=== PATIENT | female | born 1955 | race Caucasian/White ===

== ENCOUNTER → 2016-08-17 | Outpatient (REF) | payer OTHER ==
[2016-08-17 13:45] LABS: ALBUMIN 3.5 GM/DL (3.2-5.2); ALKALINE PHOSPHATASE 89 U/L (45-117); ALT/SGPT 33 U/L (12-78); ANION GAP 10 MEQ/L (8-16); AST/SGOT 18 U/L (15-37); BILIRUBIN,TOTAL 0.4 MG/DL (0.2-1.0); BLOOD UREA NITROGEN 15 MG/DL (7-18); CALCIUM LEVEL 9.2 MG/DL (8.8-10.2); CARBON DIOXIDE LEVEL 27 MEQ/L (21-32); CHLORIDE LEVEL 105 MEQ/L (98-107); CHOLESTEROL LEVEL 231 MG/DL (<200); CREATININE FOR GFR 0.86 MG/DL (0.55-1.02); GLOMERULAR FILTRATION RATE > 60.0 (>45); GLUCOSE, FASTING 108 MG/DL (80-110); POTASSIUM SERUM 4.5 MEQ/L (3.5-5.1); SODIUM LEVEL 142 MEQ/L (136-145); TRIGLYCERIDES LEVEL 137 MG/DL (<150)
== END ==
LOC: M SFHCPLAZ 08:31
PROVIDERS: ATTEND Family Medicine
DX: E66.9 Obesity, unspecified (principal)

== ENCOUNTER → 2016-08-17 | Outpatient (REF) | payer OTHER | LOC: M SFHCPLAZ 08:20 | PROVIDERS: ATTEND Family Medicine | DX: L98.9 Disorder of the skin and subcutaneous tissue, unspecified (principal) ==

== ENCOUNTER 2016-09-01 17:08 | Emergency (ER) | payer BC, OTHER ==
[~2016-09-01] VITALS: Ht 167.6 cm; Wt 104.3 kg
[2016-09-01 17:09] VITALS: BP 157/60
[2016-09-01] MEDS ORDERED: ESCI10TA2 (17:27)
[2016-09-01] MEDS ORDERED: NICO7DIS (17:27)
== END 2016-09-01 20:46 | disposition left against medical advice (07) ==
LOC: M ED 17:08
DX: Z53.29 Procedure and treatment not carried out because of patient's decision for other reasons (principal)

== ENCOUNTER → 2016-09-02 | Outpatient (REF) | payer OTHER ==
[~2016-09-02] MED LIST: ESCI10TA2; NICO7DIS
[2016-09-02 17:52] LABS: ALBUMIN 3.9 GM/DL (3.2-5.2); ALBUMIN/GLOBULIN RATIO 0.95 (1.00-1.93); ALKALINE PHOSPHATASE 95 U/L (45-117); ALT/SGPT 30 U/L (12-78); ANION GAP 5 MEQ/L (8-16); AST/SGOT 21 U/L (15-37); BILIRUBIN,TOTAL 0.4 MG/DL (0.2-1.0); BLOOD UREA NITROGEN 16 MG/DL (7-18); CALCIUM LEVEL 9.3 MG/DL (8.8-10.2); CARBON DIOXIDE LEVEL 29 MEQ/L (21-32); CHLORIDE LEVEL 101 MEQ/L (98-107); CREATININE FOR GFR 0.74 MG/DL (0.55-1.02); GLOMERULAR FILTRATION RATE > 60.0 (>45); GLUCOSE, FASTING 98 MG/DL (80-110); SODIUM LEVEL 135 MEQ/L (136-145)
[2016-09-02 19:15] LABS: BASO % 0.3 % (0.0-1.0); EOS # 0.2 K/mm3 (0.0-0.50); EOS % 2.2 % (0.0-3.0); LARGE UNSTAINED CELL # 0.2 K/mm3 (0.0-0.4); LARGE UNSTAINED CELL % 2.4 % (0.0-4.0); LYMPH # 2.6 K/mm3 (1.5-4.5); LYMPH % 30.6 % (24.0-44.0); MEAN CORPUSCULAR HEMOGLOBIN 30.5 pg (27.0-33.0); MEAN CORPUSCULAR HGB CONC 33.5 g/dl (32.0-36.5); MEAN CORPUSCULAR VOLUME 91.2 fl (80.0-96.0); MONO # 0.5 K/mm3 (0.0-0.8); MONO % 6.5 % (0.0-5.0); NEUTROPHILS # 4.9 K/mm3 (1.8-7.7); PLATELET COUNT, AUTOMATED 425 k/mm3 (150-450); RED CELL DISTRIBUTION WIDTH 12.6 % (11.5-14.5); WHITE BLOOD COUNT 8.4 K/mm3 (4.0-10.0)
== END ==
LOC: M SFHCPLAZ 14:21
PROVIDERS: ATTEND Family Medicine
DX: R10.11 Right upper quadrant pain (principal)

== ENCOUNTER → 2016-09-03 | Outpatient (CLI) | payer BC, OTHER ==
--- NOTE | 2016-09-03 08:18 | REP ---
RIGHT UPPER QUADRANT SONOGRAPHY: HISTORY: Right upper quadrant pain. No comparison imaging. FINDINGS: There is increased echogenicity diffusely in the liver with decreased insonation properties consistent with diffuse fatty infiltration of the liver. A 1.8 x 1.1 x 1.4 cm hypoechoic lesion is seen in the left lobe of the liver with some enhanced through transmission. This may be a complex cyst but is nonspecific. The liver is not felt to be enlarged. No intrahepatic bile duct dilation is seen. Scanning through the gallbladder shows mild tenderness to scanning. The gallbladder is slightly dilated measuring 9.5 cm in greatest diameter. Common bile duct is mildly dilated as well measuring 0.8 cm in greatest diameter. No stone or polyp is seen in the gallbladder. No pericholecystic fluid is seen. Images through the pancreas show poor visualization of the pancreatic tail but no pancreatic abnormality is seen. There is no evidence of ascites or right renal abnormality. The right kidney measures 12.4 x 5.8 x 5.1 cm. IMPRESSION: 1. Fatty infiltration of the liver. 2. 1.8 cm hypoechoic lesion in the left lobe of the liver most likely a complex cyst. 3. Mildly dilated gallbladder with tenderness to scanning. Mild dilation of the common bile duct. Otherwise unremarkable. Consider CT scanning of the abdomen without and with IV contrast. Signed by Toño Shipley MD 09/03/2016 10:13 A
== END ==
LOC: M RAD 06:53
PROVIDERS: ATTEND Family Medicine
DX: R10.11 Right upper quadrant pain (principal)

== ENCOUNTER → 2016-09-09 | Outpatient (CLI) | payer BC, OTHER ==
[~2016-09-09] MED LIST changes: -ESCI10TA2; +ESCI10TA2 PO; +GASTROGRAFIN SOLUTION 30ML (Q9963) As Ordered ONE; +ISOVUE-370 76% 100ML VIAL (Q9967) As Ordered ONE; +TRAM50TA2 PO
--- NOTE | 2016-09-10 10:22 | REP ---
CT abdomen without and with IV contrast: With oral contrast. History: Hepatic cyst. Right upper quadrant pain. No comparison CT study. Comparison sonography September 03, 2016. CT contrast dose: 100 mL of Isovue 370 is administered intravenously. Findings: There is moderate fatty infiltration of the liver diffusely with areas of fat sparing near the gallbladder as seen on sonography. No evidence of a hepatic cyst is seen. There is a very subtle area of increased density within the left lobe of the liver centrally 1.1 cm in diameter on the postcontrast images compatible with a small incidental hemangioma. This may appear hypoechoic on ultrasound because of the diffuse fatty infiltration of the liver. No other focal liver lesion is seen. No gallbladder abnormality is seen. Spleen is unremarkable. There is a 17 x 18 mm low density nodule in the left adrenal gland. Hounsfield units range to -25. This is consistent with a small benign left adrenal adenoma. No pancreatic abnormality is seen. There is a small descending duodenal diverticulum containing air at the head of the pancreas. No retroperitoneal mass or adenopathy is seen. A normal appendix is seen retrocecal. No abdominal wall defect is seen. Small and large bowel loops are unremarkable in the abdomen. Impression: 1. Moderate degree of diffuse fatty infiltration of the liver. 2. No evidence of hepatic cyst. Small area of subtle hypervascular parenchyma in the left lobe of the liver, 1.1 cm. This may reflect a small atypical benign hemangioma. 3. 1.8 cm benign left adrenal adenoma. No other significant abdominal abnormality. Suggest follow-up right upper quadrant ultrasound in 4 to 6 months. Signed by Toño Shipley MD 09/10/2016 01:13 P
== END ==
LOC: M RAD 15:03
PROVIDERS: ATTEND Family Medicine
DX: K76.89 Other specified diseases of liver (principal); D35.00 Benign neoplasm of unspecified adrenal gland; R10.11 Right upper quadrant pain
CPT/HCPCS: 74170; Q9963; Q9967

== ENCOUNTER → 2016-09-15 | Outpatient (CLI) | payer BC, OTHER ==
[~2016-09-15] MED LIST changes: -GASTROGRAFIN SOLUTION 30ML (Q9963) As Ordered ONE; -ISOVUE-370 76% 100ML VIAL (Q9967) As Ordered ONE
--- NOTE | 2016-09-15 11:46 | REPMRS ---
Patient History The patient states she has not had a clinical breast exam in over a year. Patient is postmenopausal. Family history of unknown cancer in father at age 55, colorectal cancer in paternal grandfather at age 70, unknown cancer in sister at age 40, unknown cancer in maternal grandmother at age 68, unknown cancer in brother at age 53, and unknown cancer in paternal uncle at age 58. Took estrogen for 36 years. Digital Woman Screen Mammo: September 15, 2016 - Exam #: [id number] Bilateral CC and MLO view(s) were taken. Technologist: Lynette Rodríguez, Technologist Prior study comparison: December 18, 2013, digital mammo diagnostic bilateral, performed at [facility]. November 22, 2012, bilateral bilat screen digital mammo, performed at [facility] ([facility]). March 27, 2010, digital bilateral screening mammo, performed at [facility]. FINDINGS: There are scattered fibroglandular densities. There has been no change in the appearance of the mammogram from the prior studies. There is a mild amount of scattered fibroglandular density which is fairly symmetric. There is no interval development of dominant mass, architectural distortion, or clustered microcalcification suggestive of malignancy. ASSESSMENT: BI-RADS/ACR category 1 mammogram. Negative. Recommendation Routine screening mammogram in 1 year (for women over age 40). This mammogram was interpreted with the aid of an FDA-approved computer-aided dectection system. Electronically Signed By: Janusz Shipley MD 09/15/16 [id number]
== END ==
LOC: M WHC 10:03
PROVIDERS: ATTEND Family Medicine
DX: Z12.31 Encounter for screening mammogram for malignant neoplasm of breast (principal); Z78.0 Asymptomatic menopausal state; Z80.8 Family history of malignant neoplasm of other organs or systems

== ENCOUNTER → 2016-09-17 | Outpatient (CLI) | payer BC, OTHER ==
[~2016-09-17] VITALS: Ht 167.6 cm; Wt 102.5 kg
[~2016-09-17] MED LIST changes: +LIDOCAINE 2% INJ 100 MG/5 ML SDV (FOR ANES.) As Ordered ONE; +NS 1,000 ML IV SCH; +PROPOFOL 200 MG/20 ML VIAL As Ordered ONE
--- NOTE | 2016-09-17 09:08 | ROOR ---
Patient Name: Amber Neville Procedure Date: 09/17/2016 8:50 AM Date of : 1955 Age: 61 Room: [facility] Gender: Female Note Status: Finalized Procedure: Upper GI endoscopy Indications: Abdominal pain in the right upper quadrant, Nausea Providers: Mckay EUGENE MD Referring MD: Janey Gamboa MD Requesting Provider: Medicines: Monitored Anesthesia Care Complications: No immediate complications. Procedure: Pre-Anesthesia Assessment: - The heart rate, respiratory rate, oxygen saturations, blood pressure, adequacy of pulmonary ventilation, and response to care were monitored throughout the procedure. The Endoscope was introduced through the mouth, and advanced to the second part of duodenum. The upper GI endoscopy was accomplished without difficulty. The patient tolerated the procedure well. Findings: A single 10 mm mucosal nodule was found at the gastroesophageal junction. Biopsies were taken with a cold forceps for histology. The exam was otherwise without abnormality. The entire examined stomach was normal. The examined duodenum was normal. Impression: - Inflammatory appearing mucosal nodule found in the lower esophagus. Biopsied. - The examination was otherwise normal. - Normal stomach. - Normal examined duodenum. Recommendation: - Continue present medications. - Telephone endoscopist for pathology results in 2 weeks. (depending on pathology report, we may consider repeating the upper scope in 3-6 months) - Use Prilosec (omeprazole) 40 mg PO daily for 3 months. - (the script was sent to your pharmacy on file) Mckay Eugene MD Mckay EUGENE MD 09/17/2016 9:07:41 AM This report has been signed electronically. Number of Addenda: 0 Note Initiated On: 09/17/2016 8:50 AM Estimated Blood Loss: Estimated blood loss: none. Estimated blood loss: none.
--- NOTE | 2016-09-17 09:31 | ROOR ---
Patient Name: Amber Neville Procedure Date: 09/17/2016 8:51 AM Date of : 1955 Age: 61 Room: [facility] Gender: Female Note Status: Finalized Procedure: Colonoscopy Indications: High risk colon cancer surveillance: Personal history of colonic polyps, Surveillance: Personal history of adenomatous polyps on last colonoscopy 3 years ago, High risk colon cancer surveillance: Personal history of adenoma with high grade dysplasia Providers: Mckay EUGENE MD Referring MD: Janey Gamboa MD Requesting Provider: Medicines: Monitored Anesthesia Care Complications: No immediate complications. Procedure: Pre-Anesthesia Assessment: - The heart rate, respiratory rate, oxygen saturations, blood pressure, adequacy of pulmonary ventilation, and response to care were monitored throughout the procedure. The Colonoscope was introduced through the anus and advanced to the cecum, identified by appendiceal orifice and ileocecal valve. The colonoscopy was somewhat difficult due to unsatisfactory bowel prep. Successful completion of the procedure was aided by lavage. The patient tolerated the procedure well. The quality of the bowel preparation was fair. Findings: The perianal and digital rectal examinations were normal. A 5 mm polyp was found in the ascending colon. The polyp was sessile. The polyp was removed with a hot snare. Resection and retrieval were complete. A 5 mm polyp was found in the hepatic flexure. The polyp was semi-sessile. The polyp was removed with a hot snare. Resection and retrieval were complete. A 5 mm polyp was found in the splenic flexure. The polyp was semi-sessile. The polyp was removed with a hot snare. Resection and retrieval were complete. A 4 mm polyp was found in the mid descending colon. The polyp was sessile. The polyp was removed with a hot snare. Resection and retrieval were complete. Multiple medium-mouthed diverticula were found in the sigmoid colon. Internal hemorrhoids were found during retroflexion. The hemorrhoids were medium-sized. Impression: - Preparation of the colon was fair/suboptimal. - One 5 mm polyp in the ascending colon, removed with a hot snare. Resected and retrieved. - One 5 mm polyp at the hepatic flexure, removed with a hot snare. Resected and retrieved. - One 5 mm polyp at the splenic flexure, removed with a hot snare. Resected and retrieved. - One 4 mm polyp in the mid descending colon, removed with a hot snare. Resected and retrieved. - Diverticulosis in the sigmoid colon. - Internal hemorrhoids. Recommendation: - Repeat colonoscopy in 6 months because the bowel preparation was suboptimal. (and history of several High grade dysplasia polyps in 2012) Mckay Eugene MD Mckay EUGENE MD 09/17/2016 9:30:47 AM This report has been signed electronically. Number of Addenda: 0 Note Initiated On: 09/17/2016 8:51 AM Estimated Blood Loss: Estimated blood loss: none.
[2016-09-17 09:45] VITALS: BP 154/69
== END | disposition home or self-care (01) ==
LOC: M OPP 07:42
PROVIDERS: ATTEND Internal Medicine Gastroenterology
DX: Z12.11 Encounter for screening for malignant neoplasm of colon (principal); K63.5 Polyp of colon; D12.3 Benign neoplasm of transverse colon; K57.30 Diverticulosis of large intestine without perforation or abscess without bleeding; K64.8 Other hemorrhoids; R10.11 Right upper quadrant pain; R11.0 Nausea; K22.8 Other specified diseases of esophagus; F33.9 Major depressive disorder, recurrent, unspecified; R06.83 Snoring; F17.200 Nicotine dependence, unspecified, uncomplicated; F17.228 Nicotine dependence, chewing tobacco, with other nicotine-induced disorders; Z79.899 Other long term (current) drug therapy; Z88.0 Allergy status to penicillin; Z88.1 Allergy status to other antibiotic agents

== ENCOUNTER → 2016-09-29 | Outpatient (CLI) | payer BC, OTHER ==
[~2016-09-29] MED LIST changes: -LIDOCAINE 2% INJ 100 MG/5 ML SDV (FOR ANES.) As Ordered ONE; -NS 1,000 ML IV SCH; -PROPOFOL 200 MG/20 ML VIAL As Ordered ONE
--- NOTE | 2016-09-29 11:33 | REP ---
BILIARY SCAN WITH GALLBLADDER EJECTION FRACTION: 09/29/2016. Comparison: CT abdomen 09/09/2016, gallbladder ultrasound 09/03/2016. Clinical history: Right upper quadrant pain and tenderness after fatty meals. Technique. The patient received 6.2 mCi technetium 99m mebrofenin via an IV with sequential 5-minute anterior images obtained over the right upper quadrant. Thereafter 8 ounces of Ensure Enlive was consumed and rescanning performed at 2-minute intervals for 1 hour with region of interest drawn over the gallbladder. The ejection fraction calculated via semiautomated method. There is homogeneous tracer distribution in the liver with a slightly enlarged left hepatic lobe. Activity is first seen in the gallbladder at 15 minutes and the common bile duct at 20 minutes but no activity into the duodenum and small bowel for by 1 hour. After the fatty meal was consumed, activity was seen extending into the small bowel immediately. There was homogeneous appearance of washout from the liver activity and progressive filling of the gallbladder with increased activity. The gallbladder ejection fraction is calculated at 21% for 1 hour. With this technique, the normal range is greater than 35%. Impression: 1. Homogeneous tracer uptake throughout the liver and good washout of activity from the liver, progressive increased activity into the gallbladder. Biliary to bowel transit was somewhat slow with no activity at 1 hour but with a fatty meal activity, did see extension into the small bowel loops immediately. However the gallbladder ejection fraction is low consistent with biliary dyskinesia. Signed by Roger Ochoa MD 09/29/2016 05:05 P
== END ==
LOC: M RAD 07:53
PROVIDERS: ATTEND Physician Assistant Medical
DX: R10.11 Right upper quadrant pain (principal)

== ENCOUNTER → 2016-10-08 | Outpatient (CLI) | payer BC, OTHER ==
[~2016-10-08] MED LIST changes: +HYDR-3713 PO; +OMEP40CA2 PO
--- NOTE | 2016-10-08 15:29 | ECGEPIP ---
Stationary ECG Study [facility] Test Date: 2016-10-08 Pat Name: CHINTAN DYE Department: Room: - Gender: F [employer]: WILDA : 1955 Requested By: QUYEN Middleton Order Number: [id number] Reading MD: Mckay Payne Measurements Intervals [place] Rate: 63 P: -16 CT: 142 QRS: -9 QRSD: 94 T: 59 QT: 414 QTc: 427 Interpretive Statements SINUS RHYTHM, Within normal limits. No prior ECG available for comparison at the time of interpretation. Electronically Signed On 10-08-2016 15:28:43 EDT by Mckay Payne
== END ==
LOC: M EKG 12:24
PROVIDERS: ATTEND Surgery
DX: K82.8 Other specified diseases of gallbladder (principal)

== ENCOUNTER 2016-11-11 21:09 | Emergency (ER) | payer BC, OTHER ==
[~2016-11-11] VITALS: Ht 167.6 cm; Wt 93.9 kg
[2016-11-11] MEDS ORDERED: NAPR500T2 PO (21:18)
[2016-11-11] MEDS ORDERED: TRAM50TA2 PO (21:18)
[2016-11-11] MEDS ORDERED: CYCL5TA PO (21:18)
[2016-11-11] MEDS ORDERED: KETOROLAC 30 MG/ML VIAL (J1885) IV ONE (22:45)
[2016-11-11] MEDS ORDERED: TRIMETHOBENZAMIDE HCL INJ 200 MG/2 ML VIAL (J3250) IM ONE (22:45)
[2016-11-11] MEDS ORDERED: NS 1,000 ML IV ONE (22:45)
[2016-11-11 22:58] LABS: BASO % 0.4 % (0.0-1.0); EOS # 0.3 K/mm3 (0.0-0.50); EOS % 2.4 % (0.0-3.0); LARGE UNSTAINED CELL # 0.2 K/mm3 (0.0-0.4); LARGE UNSTAINED CELL % 1.2 % (0.0-4.0); LYMPH # 2.7 K/mm3 (1.5-4.5); LYMPH % 20.1 % (24.0-44.0); MEAN CORPUSCULAR HEMOGLOBIN 30.3 pg (27.0-33.0); MEAN CORPUSCULAR HGB CONC 33.1 g/dl (32.0-36.5); MEAN CORPUSCULAR VOLUME 91.5 fl (80.0-96.0); MONO # 0.8 K/mm3 (0.0-0.8); MONO % 6.3 % (0.0-5.0); NEUTROPHILS # 8.6 K/mm3 (1.8-7.7); NEUTROPHILS % 69.6 % (36.0-66.0); PLATELET COUNT, AUTOMATED 576 k/mm3 (150-450); RED CELL DISTRIBUTION WIDTH 12.8 % (11.5-14.5); WHITE BLOOD COUNT 12.4 K/mm3 (4.0-10.0)
[2016-11-11] MEDS ORDERED: ISOVUE-370 76% 100ML VIAL (Q9967) As Ordered ONE (23:06)
[2016-11-11] MEDS ORDERED: MORPHINE 4 MG/ML 1ML SYRINGE IV ONE (23:15)
--- NOTE | 2016-11-11 23:40 | REPUSA ---
Clinical history: Pain, swelling. Findings: The common femoral, superficial femoral, popliteal, and other deep venous structures compre ss normally and demonstrate normal color Doppler flow. Normal venous waveforms with augmentation are seen. Several large prominent lymph nodes are seen in the right inguinal region. A lymph node is seen measuring 2.7 x 1.0 x 1.2 cm. A second lymph node measures 4.0 x 0.7 x 1.6 cm. Impression: 1. No evidence of deep vein thrombosis in the right femoral popliteal venous system. 2.. Borderline inguinal lymphadenopathy.
[2016-11-12 00:04] LABS: ANION GAP 9 MEQ/L (8-16); BLOOD UREA NITROGEN 18 MG/DL (7-18); CALCIUM LEVEL 9.3 MG/DL (8.8-10.2); CARBON DIOXIDE LEVEL 24 MEQ/L (21-32); CHLORIDE LEVEL 102 MEQ/L (98-107); CREATININE FOR GFR 0.84 MG/DL (0.55-1.02); GLOMERULAR FILTRATION RATE > 60.0 (>45); GLUCOSE, FASTING 122 MG/DL (80-110); POTASSIUM SERUM 4.1 MEQ/L (3.5-5.1); SODIUM LEVEL 135 MEQ/L (136-145)
--- NOTE | 2016-11-12 01:20 | REPUSA ---
CLINICAL HISTORY: Dyspnea,exclude PE. TECHNIQUE: Multiple incremental axial, coronal and oblique images are obtained from the thoracic inle t to the upper abdomen. Intravenous contrast material was administered as per pulmonary embolism prot ocol. COMMENTS: Pathologic fracture of the posterior arch of the right seventh rib with an associated soft tissue les ion. Pathologic fracture of the left transverse process of T8 vertebral with an associated soft tissue les ion. Pathologic fracture of the T10 vertebral body with associated soft tissue lesion. No secondary retrop ulsion. Moderate diffuse mediastinal and bilateral hilar lymphadenopathy. The largest lymph node measures a 3 .2 cm. 2.5 cm spiculated mass in the left lower lobe suggestive of a neoplastic pathology. Scattered bilateral pulmonary nodules ranging in size between 2 and 5 mm. Scattered bilateral groundglass densities of the lungs. Subsegmental atelectatic changes of the right lung. There is excellent opacification of pulmonary arterial system without evidence for pulmonary embolism . Aorta is of normal caliber without evidence for dissection or aneurysm. There are no pleural effusions. The heart and great vessels are within normal limits. Images of the upper abdomen demonstrate no evidence of adrenal mass. IMPRESSION: No evidence for pulmonary embolism. Diffuse mediastinal and hilar lymphadenopathy. Left lower lobe mass suggestive of a neoplastic pathology. Bilateral pulmonary nodules. Subsegmental atelectatic changes of the right lung. Diffuse metastatic bone disease. Thank you for your kind referral of this patient.
[2016-11-12] MEDS ORDERED: HYDROmorphone HCL 1 MG/ML SYRINGE (J1170) IV ONE ×2 (02:30)
[2016-11-12] MEDS ORDERED: ATIV2TAB PO (02:37)
[2016-11-12] MEDS ORDERED: LORazepam 2 MG TAB PO STA (02:39)
[2016-11-12 03:00] VITALS: BP 138/62
--- NOTE | 2016-11-13 14:26 | ED PDOC ---
Post-Departure Follow-Up faxed to dr kay xavier and rakel. MILADIS Moore November 13, 2016 14:26
== END 2016-11-12 03:04 | disposition home or self-care (01) ==
LOC: M ED 22:46
DX: R91.8 Other nonspecific abnormal finding of lung field (principal); R59.0 Localized enlarged lymph nodes
CPT/HCPCS: 71275; 80048; 85025; 86140; 93971; 96361; 96372; 96374; 96375; 96376; 99282; J1170; J1885; J3250; Q9967

== ENCOUNTER → 2016-11-16 | Outpatient (REF) | payer BC, OTHER ==
[~2016-11-16] MED LIST changes: +ATIV2TAB PO; +CYCL5TA PO; +NAPR500T2 PO
[2016-11-16 13:48] LABS: INR 1.05
== END ==
LOC: M LAB REF 13:03
PROVIDERS: ATTEND Internal Medicine Medical Oncology
DX: C34.90 Malignant neoplasm of unspecified part of unspecified bronchus or lung (principal); C79.51 Secondary malignant neoplasm of bone

== ENCOUNTER → 2016-11-19 | Outpatient (CLI) | payer BC, OTHER ==
--- NOTE | 2016-11-19 14:36 | REP ---
Whole body radionuclide bone scan: History: Bony metastasis. Technique: 20.1 mCi technetium 99m MDP is injected and standard whole body bone scan imaging is acquired. Scintigraphic findings: There is uptake in the urinary bladder and in both kidneys. There is abnormal uptake in the posterior aspect of the right 7th rib with photopenic area in the posterior segment bordered by two areas of increased uptake, one on either side of the photopenic zone. This corresponds to the pathologic fracture in this rib on recent chest CT. There is mixed photopenia and increased uptake in the lower thoracic spine at T10 and T11. Some increased uptake is seen at T9 and T8 in the posterior elements and pedicles. There is a focus of increased uptake in the lateral end of the left 10th rib and possibly in the anterior end of the left 6th rib. These areas are suspicious for metastatic disease. There is a focus of increased uptake in the inferior and medial aspect of the femoral head on the right. Whole body images suggest a lesion in the superior pubic ramus on the right as well. No other abnormal foci are seen. There is mild arthritic uptake in the acromioclavicular joints bilaterally. Impression: Metastatic pattern of skeletal uptake with areas of photopenia and increased uptake seen. This implies an aggressive neoplastic pattern. Signed by Toño Shipley MD 11/19/2016 02:59 P
== END ==
LOC: M RAD 09:48
PROVIDERS: ATTEND Physician Assistant
DX: C79.51 Secondary malignant neoplasm of bone (principal); C80.1 Malignant (primary) neoplasm, unspecified

== ENCOUNTER → 2016-11-20 | Outpatient (CLI) | payer BC, OTHER ==
[~2016-11-20] MED LIST changes: +LIDOCAINE 1% MDV 20ML VIAL As Ordered ONE
--- NOTE | 2016-11-20 16:25 | REP ---
CT GUIDED T 8 LEFT TRANSVERSE PROCESS BIOPSY: The procedure was performed under the direct supervision of Dr. Shipley. The risks and benefits of the procedure were explained to the patient and informed consent was obtained. The T 8 left transverse process lesion was localized using CT guidance. The skin was prepped and draped in a sterile fashion. 1% Lidocaine was used as a local anesthetic. Using CT guidance a 17/18 gauge coaxial needle was inserted and then advanced into the lesion. 2 core biopsy samples were obtained. The needle was removed and a 19/20 gauge coaxial needle biopsy system was inserted and 5 core biopsy samples were obtained. All samples were sent to the lab for analysis. The patient tolerated the procedure well and there were no immediate complications. After the appropriate amount of monitored convalescence the patient was discharged from the department. Reviewed by SERENITY Han 11/20/2016 04:48 PEdited and Signed by Toño Shipley MD 11/23/2016 08:34 A
== END ==
LOC: M RADPRO 10:52
PROVIDERS: ATTEND Internal Medicine Pulmonary Disease
DX: C34.90 Malignant neoplasm of unspecified part of unspecified bronchus or lung (principal); Z88.0 Allergy status to penicillin; Z88.8 Allergy status to other drugs, medicaments and biological substances; Z87.891 Personal history of nicotine dependence; Z79.899 Other long term (current) drug therapy

== ENCOUNTER → 2016-12-01 | Outpatient (CLI) | payer BC, OTHER ==
[~2016-12-01] MED LIST changes: -LIDOCAINE 1% MDV 20ML VIAL As Ordered ONE
--- NOTE | 2016-12-02 19:32 | REP ---
Whole body PET CT scan: Comparisons are the chest CT dated 09/09/[address] of the abdomen, pelvis not included dated 09/09/2016. Whole body PET CT scan is performed from skull base to the upper thighs. Neck and supraclavicular areas: There are multiple hypermetabolic foci at the thoracic inlet, particularly on the left compatible with adenopathy. S U V maximally measures 8.2 in a node at the thoracic inlet on the left. Chest: There are multiple hypermetabolic foci in the anterior mediastinum and paratracheal mediastinum compatible with mediastinal lymphadenopathy. The S U V maximally measures 5.9 in an anterior mediastinal node. There is bilateral hilar multifocal uptake compatible with bilateral hilar adenopathy, the SUV maximally measuring 12.6 on the right and 7.0 on the left. There is uptake in a subcarinal node with an S U V of 9.8. There is hypermetabolic uptake in the patient's known left lung mass with the standard uptake value maximally measuring 7.0. At the periphery of this mass superoposteriorly there is a photopenic zone compatible with necrosis. There is intense uptake in the posterior arch of the right sixth rib and at the costoveterbral junction of the left seventh rib and in the posterior elements of the T7 vertebra compatible with skeletal metastases. Additionally is a focus of uptake in the right pedicle of the T8 vertebra. I suspect there is an expansile lesion in the T9 vertebral body with hypermetabolic uptake at its periphery. There is focal hypermetabolic uptake in the lateral aspect of the left tenth rib. Abdomen, pelvis and upper thighs: There is a hypermetabolic focus posteriorly in the right lobe of the liver, standard uptake value measuring 7.6. There is hypermetabolic uptake in mesenteric nodes in the latonya hepatis and posterior to the pancreas. And there are hypermetabolic foci in the spleen. There are enlarged aortocaval nodes with hypermetabolic uptake. There is an hypermetabolic focus posteriorly in the right kidney with the standard uptake value measuring 19.3. In the pelvis, there is a hypermetabolic focus in the sacrum on the right with an S U V of 17.5 and a hypermetabolic focus in the right hip. There is hypermetabolic uptake in an enlarged right femoral noted. The bladder is flattened and has an irregular shape. There appears to be a diverticulum posteriorly in the midline and two diverticula postero laterally one on the right and one the left. Impression: Multiple hypermetabolic metastatic lymph node, skeletal and solid organ foci. The study is performed with 11 mCi of F 18 FDG. Signed by Moy Acharya MD 12/02/2016 07:24 P
== END ==
LOC: M PLARAD 13:26
PROVIDERS: ATTEND Internal Medicine Pulmonary Disease
DX: C34.32 Malignant neoplasm of lower lobe, left bronchus or lung (principal)
CPT/HCPCS: 78815; A9552

== ENCOUNTER → 2016-12-22 | Outpatient (CLI) | payer BC, OTHER ==
--- NOTE | 2016-12-29 10:36 | RADONC ---
RADIATION ONCOLOGY CONSULTATION NOTE DATE: 12/22/2016 CHART NUMBER: [id number] DIAGNOSIS: Left lung cancer. STAGE: IV, [id number]. ECOG PERFORMANCE STATUS: 2. CONSULTATION NOTE: Ms. Neville is a pleasant 61-year-old white female with the diagnosis of a widely metastatic end-stage adenocarcinoma of the lung who is presenting to us today on an urgent basis complaining of severe right hip and low back pain as well as pain in other sites. She is presenting for palliative radiation therapy for bone metastasis. HISTORY OF PRESENT ILLNESS: The patient has been a long-time smoker and has a 40 pack-year smoking history. She was in the usual state of health until July of this year when she began developing some abdominal pain located in the right upper quadrant. At first it was thought she had a cholecystitis and she underwent a cholecystectomy in October of 2016. She continued to have pain as well as some increased shortness of breath. The patient presented at the emergency department and a CT was done on 11/11/2016 of the chest which showed diffuse mediastinal and hilar lymphadenopathy as well as a left lower lobe mass suggestive of a neoplastic pathology. There were multiple pulmonary nodules as well as diffuse metastatic bone disease. There was noted to be a pathologic fracture of the right 7th rib. There was also noted to be disease at the T8 vertebral body with a soft tissue mass and at T10. 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 The patient was seen at [facility] conference on 11/25. Pathology was reviewed and PD-L1 testing was requested. It came back positive with 90% expression of PD-L1. A PET scan was done on 12/01/2016 which I have personally reviewed and showed multiple sites of metastatic disease throughout the lungs, bones, liver and lymph nodes. The patient was started on Keytruda by Dr. Khalil on December 07. She has been given pain medication and is now presenting to us for consideration of palliative radiation therapy to various sites. PAST MEDICAL HISTORY: The patient's past medical history is positive for depression. She had a hysterectomy at the age of 21. She reported having vein stripping in 1998. She had her cholecystectomy as mentioned above. She reports hypothyroidism. ALLERGIES: The patient is allergic to PENICILLIN and LEVAQUIN. SOCIAL HISTORY: The patient had smoked one pack of cigarettes per day for approximately 40 years. She does not abuse alcohol. FAMILY HISTORY: The patient's family history is positive for a father with stomach cancer, a sister with esophageal cancer, a brother with brain cancer, and another brother with liver cancer. REVIEW OF SYSTEMS: The patient's review of systems is positive for pain in the right hip as well as back as well as in addition to some depression. She has decreased energy. She denies nausea, vomiting, fevers, chills, night sweats, diplopia, headaches, anxiety, anorexia, weight loss, visual disturbances, chest pain, urinary or bowel difficulties or neurological problems. PHYSICAL EXAMINATION: The patient is a well-developed, well-nourished, female in no acute distress. HEENT exam is normocephalic, atraumatic. Extraocular movements are intact. There is no palpable cervical, supraclavicular, infraclavicular, axillary, or inguinal lymphadenopathy present. Lungs are clear to auscultation and percussion. Heart has a regular rate and rhythm. Abdomen is benign with no hepatosplenomegaly, masses, or tenderness. Skeletal examination does reveal some tenderness to pressure over multiple rib areas and other bony sites. Extremities reveal no clubbing, cyanosis, or edema. Neurologic exam is grossly intact, as is the remainder of the physical examination. ASSESSMENT: Clearly the patient is a candidate for palliative radiation therapy and I have so informed her. I have discussed with the patient in detail the potential benefits as well as possible acute and chronic sequelae of external beam radiation therapy. We discussed logistics of treatment planning, simulation and subsequent fractionated daily radiation treatments. I have scheduled the patient for the next available simulation slot and radiation treatments will begin subsequently to her right hip and low back. We will be able to treat some of the painful rib metastases as well. Thank you for allowing us to participate in the care of this very pleasant woman. If I could be of any further assistance or provide you with any information, please free to contact me anytime. cc: MD Subhash Jose MD Leslie Kohman, MD Lawrence Kramer, MD Kate Skipton, MD
== END ==
LOC: M ONCR 15:07
PROVIDERS: ATTEND Radiology Radiation Oncology
DX: C78.00 Secondary malignant neoplasm of unspecified lung (principal)

== ENCOUNTER 2016-12-23 14:11 | Outpatient (RCR) | payer BC, OTHER ==
[~2016-12-23 14:11] MED LIST changes: -CYCL5TA PO; +CYCL5TAB PO; -NAPR500T2 PO; +NAPR500T3 PO; -NICO7DIS; +NICO7DIS24
--- NOTE | 2016-12-23 14:34 | RADONC ---
RADIATION ONCOLOGY SIMULATION NOTE: DATE OF SERVICE: 12/23/2016 CHART NUMBER: [id number] Ms. Neville was taken to the CT scan for CT simulation of her back and hip field. CT was accomplished without difficulty or discomfort. Radiation treatment planning is underway and radiation treatments will begin subsequently. An immobilization device was created without difficulty or discomfort. It will be used throughout the course of treatment. I was physically present throughout the course of CT simulation.
== END 2017-01-01 ==
LOC: M ONCR 14:11
PROVIDERS: ATTEND Radiology Radiation Oncology
DX: C79.51 Secondary malignant neoplasm of bone (principal); C34.32 Malignant neoplasm of lower lobe, left bronchus or lung

== ENCOUNTER → 2016-12-23 | Outpatient (CLI) | payer BC, OTHER | LOC: M RAD 14:01 | PROVIDERS: ATTEND Radiology Radiation Oncology | DX: C34.90 Malignant neoplasm of unspecified part of unspecified bronchus or lung (principal) ==

== ENCOUNTER 2017-01-06 09:37 | Outpatient (RCR) | payer BC, OTHER ==
--- NOTE | 2017-01-08 10:26 | RADONC ---
RADIATION ONCOLOGY PROGRESS NOTE DATE: 01/06/2017 CHART NUMBER: [id number] Ms. Neville underwent her first fraction of radiation today to her right hip and sacrum for a dose of 300 cGy to each area. It was tolerated without difficulty or discomfort. The patient's review of systems unchanged. She continues have pain in those areas. PHYSICAL EXAMINATION: Clearly the patient has no radiation change of the skin present since she just started today. The patient's first fraction of radiation was tolerated without difficulty and radiation will continue as scheduled.
--- NOTE | 2017-01-12 07:16 | RADONC ---
RADIATION ONCOLOGY PROGRESS NOTE: DATE: 01/11/2017 CHART NUMBER: [id number] Ms. Neville is presently at a dose of 1200 cGy to her right hip and spine and is tolerating treatments quite well at this point with no significant difficulties related to her radiation therapy other than some nausea. REVIEW OF SYSTEMS: The patient's review of systems is positive for nausea, but is otherwise noncontributory. She denies nausea, vomiting, fevers, chills, night sweats, diplopia, headaches, anxiety or depression, anorexia, weight loss, visual disturbances, chest pain, urinary or bowel difficulties, bone pain, or neurological problems. PHYSICAL EXAMINATION: The patient's skin is in good condition with no evidence of radiation change present. There is no moist or dry desquamation. The remainder of her physical exam remains unchanged. Ms. Neville is tolerating her treatments quite well and is taking antinausea medication. She reports a marked improvement in her discomfort and pain. Radiation is well tolerated and will continue as scheduled.
--- NOTE | 2017-01-19 06:37 | RADONC ---
RADIATION ONCOLOGY PROGRESS NOTE DATE: 01/18/2017 CHART NUMBER: [id number]. Ms. Neville is presently at a dose of 2400 centigrade to her right hip and sacrum. She continues to have nausea and vomiting. The vomiting lasts through the weekend. She is continuing to use large doses of morphine and other pain medication. She has a marked improvement however in her back pain and reports lessening of the dose of the narcotics. REVIEW OF SYSTEMS: The patient's review of systems is positive for nausea and vomiting as well as some residual back pain but is otherwise noncontributory. Denies nausea, vomiting, fevers, chills, night sweats, diplopia, headaches, anxiety or depression, anorexia, weight loss, visual disturbances, chest pain, urinary or bowel difficulties, bone pain, or neurological problems. PHYSICAL EXAMINATION: The patient's skin is in good condition with no evidence of radiation change present. There is no moist or dry desquamation. The remainder of her physical exam remains unchanged. Ms. Neville is tolerating her treatments overall and radiation will continue as scheduled.
--- NOTE | 2017-01-20 14:31 | RADONC ---
RADIATION ONCOLOGY TREATMENT SUMMARY: DATE: 01/20/2017 CHART NUMBER: [id number] DIAGNOSIS: Left breast cancer. STAGE: IV, [id number] ECOG PERFORMANCE STATUS: 2 Ms. Neville is a pleasant 61-year-old white female with the diagnosis of widely metastatic end-stage adenocarcinoma of the lung who presented to us for consideration of palliative radiation therapy to her low back and right hip. We treated the patient to her right hip for a total dose of 3000 cGy delivered in 10 fractions of 300 cGy each over 14 elapsed days from 01/06/2017 through 01/20/2017. The patient's right hip was treated on the linear accelerator utilizing an 18 MV photon beam via anterior posterior parallel opposed patel. In addition, we treated the patient to the sacrum for a dose of 3000 cGy delivered in 10 fractions of 300 cGy each over 14 elapsed days from 01/06/2017 through 01/20/2017. The patient's spine was treated on the linear accelerator utilizing a 18 MV photon beam via single posterior field prescribed to a depth of 8 cm. Ms. Neville tolerated her treatments quite well and was able to complete therapy as prescribed without interuption. I have scheduled the patient see me again in 1 month for further followup. She will also continue be followed by her other physicians as well. cc: MD Subhash Jose MD Leslie Kohman, MD Lawrence Kramer, MD Kate Skipton, MD MTDD
[2017-02-01] MEDS ORDERED: OXYC-423 PO (17:35)
[2017-02-01] MEDS ORDERED: PRED10PA PO (17:35)
[2017-02-01] MEDS ORDERED: MORP15TA2 PO (17:35)
[2017-02-01] MEDS ORDERED: SYNT25TA PO (17:35)
[2017-02-01] MEDS ORDERED: ELIQ5TAB PO (19:39)
== END 2017-02-01 ==
LOC: M ONCR 09:37
PROVIDERS: ATTEND Radiology Radiation Oncology
DX: C79.51 Secondary malignant neoplasm of bone (principal); C34.32 Malignant neoplasm of lower lobe, left bronchus or lung

== ENCOUNTER 2017-02-01 17:18 | Emergency (ER) | payer BC, OTHER ==
[~2017-02-01] VITALS: Ht 167.6 cm; Wt 79.5 kg
[2017-02-01 17:19] VITALS: BP 123/74
[2017-02-01] MEDS ORDERED: MORP15TA2 PO (17:35)
[2017-02-01] MEDS ORDERED: PRED10PA PO (17:35)
[2017-02-01] MEDS ORDERED: OXYC-423 PO (17:35)
[2017-02-01] MEDS ORDERED: SYNT25TA PO (17:35)
[2017-02-01] MEDS ORDERED: SODIUM CHLORIDE 0.9% INJ 10 ML SYR IV ONE (18:30)
[2017-02-01] MEDS ORDERED: HEPARIN SOD (PORCINE) 5000 UNITS/ML VIAL IV ONE (18:30)
[2017-02-01 19:00] LABS: BASO % 0.2 % (0.0-1.0); EOS # 0.1 K/mm3 (0.0-0.50); EOS % 1.4 % (0.0-3.0); LARGE UNSTAINED CELL # 0.1 K/mm3 (0.0-0.4); LARGE UNSTAINED CELL % 0.8 % (0.0-4.0); LYMPH # 0.8 K/mm3 (1.5-4.5); MEAN CORPUSCULAR HGB CONC 32.4 g/dl (32.0-36.5); MEAN CORPUSCULAR VOLUME 89.3 fl (80.0-96.0); MONO # 0.3 K/mm3 (0.0-0.8); MONO % 3.4 % (0.0-5.0); NEUTROPHILS # 8.2 K/mm3 (1.8-7.7); NEUTROPHILS % 86.2 % (36.0-66.0); PLATELET COUNT, AUTOMATED 246 k/mm3 (150-450); RED CELL DISTRIBUTION WIDTH 16.1 % (11.5-14.5); WHITE BLOOD COUNT 9.5 K/mm3 (4.0-10.0)
--- NOTE | 2017-02-01 19:00 | REPUSA ---
Clinical history: Pain, swelling. Findings: The right common femoral vein is unremarkable. There is echogenic, occlusive thrombus throu ghout the right superficial femoral vein into the popliteal vein and into the posterior tibial vein. Impression: Acute occlusive deep vein thrombosis in the right superficial femoral, popliteal, and posterior tibia l veins.
[2017-02-01] MEDS ORDERED: MORPHINE 30 MG TAB **MSIR PO STA (19:10)
[2017-02-01] MEDS ORDERED: oxyCODONE 15 MG CR TAB PO ONE (19:15)
[2017-02-01 19:23] LABS: ANION GAP 8 MEQ/L (8-16); BLOOD UREA NITROGEN 15 MG/DL (7-18); CALCIUM LEVEL 8.7 MG/DL (8.8-10.2); CARBON DIOXIDE LEVEL 26 MEQ/L (21-32); CHLORIDE LEVEL 100 MEQ/L (98-107); CREATININE FOR GFR 0.63 MG/DL (0.55-1.02); GLOMERULAR FILTRATION RATE > 60.0 (>45); GLUCOSE, FASTING 118 MG/DL (80-110); POTASSIUM SERUM 4.9 MEQ/L (3.5-5.1); SODIUM LEVEL 134 MEQ/L (136-145)
[2017-02-01] MEDS ORDERED: KETOROLAC 30 MG/ML VIAL (J1885) IV ONE (19:30)
[2017-02-01 19:34] LABS: INR 0.89
[2017-02-01] MEDS ORDERED: ELIQ5TAB PO (19:39)
[2017-02-01] MEDS ORDERED: APIXABAN 5 MG TAB (ELIQUIS) PO ONE (19:45)
== END 2017-02-01 20:19 | disposition home or self-care (01) ==
LOC: M ED 17:18
DX: I82.421 Acute embolism and thrombosis of right iliac vein (principal); C34.90 Malignant neoplasm of unspecified part of unspecified bronchus or lung; E03.9 Hypothyroidism, unspecified; F32.9 Major depressive disorder, single episode, unspecified; Z72.0 Tobacco use

== ENCOUNTER → 2017-04-15 | Outpatient (CLI) | payer BC, OTHER ==
[~2017-04-15] MED LIST changes: +ELIQ5TAB PO; +MORP15TA2 PO; +OXYC-423 PO; +PRED10PA PO; +SYNT25TA PO
[2017-04-15 15:46] LABS: ALBUMIN 2.5 GM/DL (3.2-5.2); ALBUMIN/GLOBULIN RATIO 0.68 (1.00-1.93); ALKALINE PHOSPHATASE 111 U/L (45-117); ALT/SGPT 29 U/L (12-78); ANION GAP 6 MEQ/L (8-16); AST/SGOT 13 U/L (15-37); BILIRUBIN,TOTAL 0.2 MG/DL (0.2-1.0); BLOOD UREA NITROGEN 9 MG/DL (7-18); CALCIUM LEVEL 8.6 MG/DL (8.8-10.2); CARBON DIOXIDE LEVEL 31 MEQ/L (21-32); CHLORIDE LEVEL 105 MEQ/L (98-107); CREATININE FOR GFR 0.57 MG/DL (0.55-1.02); GLOMERULAR FILTRATION RATE > 60.0 (>45); GLUCOSE, FASTING 84 MG/DL (80-110); POTASSIUM SERUM 3.2 MEQ/L (3.5-5.1); SODIUM LEVEL 142 MEQ/L (136-145); TOTAL PROTEIN 6.2 GM/DL (6.4-8.2)
== END ==
LOC: M LAB 15:04
DX: E87.6 Hypokalemia (principal)

== ENCOUNTER 2017-06-06 00:58 | Inpatient (IN) | payer BC, OTHER ==
[~2017-06-06] VITALS: Ht 167.6 cm; Wt 75.6 kg
[2017-06-06] MEDS ORDERED: MORPHINE 4 MG/ML 1ML SYRINGE IV ONE ×2 (01:15→02:00)
[2017-06-06] MEDS ORDERED: HYDROmorphone HCL 1 MG/ML SYRINGE (J1170) IV ONE ×2 (03:00→04:30)
[2017-06-06 03:04] LABS: BASO % 0.3 % (0.0-1.0); EOS % 0.5 % (0.0-3.0); IMMATURE GRANULOCYTE % 0.6 % (0-0); LYMPH # 1.1 10^3/uL (1.5-4.5); LYMPH % 12.9 % (24.0-44.0); MEAN CORPUSCULAR HEMOGLOBIN 31.1 pg (27.0-33.0); MEAN CORPUSCULAR HGB CONC 34.5 g/dl (32.0-36.5); MEAN CORPUSCULAR VOLUME 90.1 fl (80.0-96.0); MONO # 0.9 10^3/uL (0.0-0.8); MONO % 9.9 % (0.0-5.0); NEUTROPHILS # 6.6 10^3/uL (1.8-7.7); NEUTROPHILS % 75.8 % (36.0-66.0); PLATELET COUNT, AUTOMATED 337 10^3/uL (150-450); RED CELL DISTRIBUTION WIDTH 15.3 % (11.5-14.5); WHITE BLOOD COUNT 8.7 10^3/uL (4.0-10.0)
[2017-06-06] MEDS ORDERED: ESCI20TA PO (03:14)
[2017-06-06] MEDS ORDERED: OXYC30TA72 PO (03:14)
[2017-06-06] MEDS ORDERED: LEVO30TA PO (03:14)
[2017-06-06] MEDS ORDERED: POTA20TA4 PO (03:14)
[2017-06-06] MEDS ORDERED: ELIQ5TAB PO (03:14)
[2017-06-06] MEDS ORDERED: ZOFR8TAB4 PO ×2 (03:14)
[2017-06-06] MEDS ORDERED: TRAZ50TA11 PO (03:14)
[2017-06-06] MEDS ORDERED: CALCTAB75 PO (03:14)
[2017-06-06] MEDS ORDERED: LORA0.5T11 PO (03:14)
[2017-06-06] MEDS ORDERED: MSIR30TA PO (03:16)
[2017-06-06] MEDS ORDERED: DRON10CA4 PO (03:19)
[2017-06-06 03:39] LABS: INR 1.12
[2017-06-06 03:41] LABS: ANION GAP 8 MEQ/L (8-16); BLOOD UREA NITROGEN 18 MG/DL (7-18); CALCIUM LEVEL 8.6 MG/DL (8.8-10.2); CARBON DIOXIDE LEVEL 26 MEQ/L (21-32); CHLORIDE LEVEL 105 MEQ/L (98-107); CREATININE FOR GFR 0.54 MG/DL (0.55-1.02); GLOMERULAR FILTRATION RATE > 60.0 (>45); GLUCOSE, FASTING 99 MG/DL (80-110); POTASSIUM SERUM 3.9 MEQ/L (3.5-5.1); SODIUM LEVEL 139 MEQ/L (136-145)
[2017-06-06] MEDS ORDERED: MORPHINE 10 MG/ML 1ML VIAL IV ONE (03:45)
[2017-06-06] MEDS ORDERED: NS 1,000 ML IV SCH (04:16)
[2017-06-06] MEDS ORDERED: MORPHINE 4 MG/ML 1ML SYRINGE IV PRN (04:30)
[2017-06-06] MEDS ORDERED: MORPHINE 10 MG/ML 1ML VIAL IM ONE (04:30)
[2017-06-06] MEDS ORDERED: MORPHINE 30 MG TAB **MSIR PO PRN (04:30)
--- NOTE | 2017-06-06 04:33 | HPEPDOC ---
[facility] Medical History & Physical Date of Admission Jun 06, 2017 History and Physical PRIMARY CARE PROVIDER: Dr. Janey Gamboa ATTENDING: Dr. Janey Gamboa CHIEF COMPLAINT: Hip pain HISTORY OF PRESENT ILLNESS: This is a 62-year-old female past medical history of lung cancer status post metastasis to liver, spleen, bone, with prior pathologic fractures of the ribs, history of DVT on Eliquis, depression, chronic pain on morphine presents complaining of right hip pain. The patient states she is able to walk minimally, and typically uses a cane. She was turning around when she heard a snap and fell to the floor. She had significant amount of pain in her right hip for which she came to the ED. Patient denies chest pain/shortness of breath/palpitations. Denies nausea/ vomiting/abdominal pain. In the ED, patient was noted to have a hip fracture, and ED called orthopedics, who be seeing the patient. PAST MEDICAL HISTORY: As per HPI PAST SURGICAL HISTORY: Cholecystectomy, varicose vein stripping, hysterectomy SOCIAL HISTORY: Smokes 1 pack per day since the age of 25, denies alcohol or illicit drug use. FAMILY HISTORY: Noncontributory ALLERGIES: Please see below. REVIEW OF SYSTEMS: HEENT: Denies sore throat/headache CARDIOVASCULAR: Denies chest pain/palpitations RESPIRATORY: Denies shortness of breath/cough GASTROINTESTINAL: denies nausea/vomiting GENITOURINARY: Denies dysuria/urinary urgency. MUSCULOSKELETAL: Denies myalgias/arthralgias NEUROLOGICAL: Denies any focal weakness HOME MEDICATIONS: Please see below. PHYSICAL EXAMINATION: Vitals: (see below) General: Mild distress secondary to right hip pain HEENT: Moist mucous membranes. Neck: No JVD or lymphadenopathy Cardiac: RRR, No murmurs Pulm: Clear to auscultation b/l. No wheezing, rhonchi. Right port-a-cath; no erythema/leak/bleeding. Abd: NT/ND + BS Ext: No edema or cyanosis. Significant pain with minimal movement of the right hip. Distal pulses intact. RLE externally rotates, shorter than the left. LABORATORY DATA: See below. IMAGING: MICROBIOLOGY: Please see below. ASSESSMENT/PLAN: 1. Acute right hip fracture- likely pathologic fracture. Patient did have a metastatic lesion at the right hip region on her CAT scan in April 2017. She' s had prior pathologic fractures as well including in her ribs. Orthopedics consulted. Pain control. 2. Stage IV lung cancer with metastases to the liver, spleen, bone- status post palliative radiation, on chemotherapy last dose 2 weeks ago 3. DVT January 2017 - on Eliquis - ? Whether patient will need to be on Lovenox instead given her active malignancy - will need this clarified with her oncologist. ELiquis on hold for now until the patient is evaluated by orthopedics. Continue restarting based on orthopedic recommendations. 4. Chronic pain- patient will likely need to significant up titration of her pain medications during this period of time with her right hip fracture. She is on morphine IV for breakthrough. Continue OxyContin/morphine by mouth. Pain management consulted 5. Hypothyroidism- on Synthroid 6. GERD- on PPI 7. History of depression- continue home meds DVT prophylaxis- pending orthopedic consultation Prognosis guarded Patient will be followed by Dr. Madelin Gamboa starting 06/06/17 at 7 AM. Vital Signs Vital Signs Date Time Temp Pulse Resp B/P (MAP) Pulse Ox O2 Delivery O2 Flow Rate FiO2 06/06/17 02:57 22 06/06/17 01:41 06/06/17 01:10 97.0 97 98 Room Air Laboratory Data Labs 24H Laboratory Tests 2 06/06/17 02:55: Immature Granulocyte % (Auto) 0.6H, White Blood Count 8.7, Red Blood Count 4.54 , Hemoglobin 14.1, Hematocrit 40.9, Mean Corpuscular Volume 90.1, Mean Corpuscular Hemoglobin 31.1, Mean Corpuscular Hemoglobin Concent 34.5, Red Cell Distribution Width 15.3H, Platelet Count 337, Neutrophils (%) (Auto) 75.8H, Lymphocytes (%) (Auto) 12.9L, Monocytes (%) (Auto) 9.9H, Eosinophils (%) (Auto) 0.5, Basophils (%) (Auto) 0.3, Neutrophils # (Auto) 6.6, Lymphocytes # (Auto) 1.1L, Monocytes # (Auto) 0.9H, Eosinophils # (Auto) 0.0, Basophils # (Auto) 0.0 , Immature Granulocyte # (Auto) 0.1H, Nucleated Red Blood Cells % (auto) 0.0, Prothrombin Time 14.6H, Prothromb Time International Ratio 1.12, Activated Partial Thromboplast Time 31.3, Anion Gap 8, Glomerular Filtration Rate > 60.0, Blood Urea Nitrogen 18, Creatinine 0.54L, Sodium Level 139, Potassium Level 3.9 , Chloride Level 105, Carbon Dioxide Level 26, Calcium Level 8.6L CBC/BMP Laboratory Tests 06/06/17 02:55 Red Blood Count 4.54, Mean Corpuscular Volume 90.1, Mean Corpuscular Hemoglobin 31.1, Mean Corpuscular Hemoglobin Concent 34.5, Red Cell Distribution Width 15.3 H, Neutrophils (%) (Auto) 75.8 H, Lymphocytes (%) (Auto) 12.9 L, Monocytes (%) (Auto) 9.9 H, Eosinophils (%) (Auto) 0.5, Basophils (%) (Auto) 0.3, Neutrophils # (Auto) 6.6, Lymphocytes # (Auto) 1.1 L, Monocytes # (Auto) 0.9 H, Eosinophils # (Auto) 0.0, Basophils # (Auto) 0.0, Calcium Level 8.6 L Home Medications Scheduled Apixaban Base (Eliquis) 5 Mg Tab, 5 MG PO BID Calcium/Vitamin D (Calcium 500 +D 500-400 mg-Unit) 1 Tab Tab, 1 TAB PO DAILY Dronabinol (Dronabinol) 10 Mg Cap, 10 MG PO BID BEFORE MEALS Escitalopram Oxalate (Escitalopram Oxalate) 20 Mg Tab, 20 MG PO DAILY Levothyroxine Sodium (Levo-T) 25 Mcg Tab, 12.5 MCG PO DAILY Omeprazole (Omeprazole) 40 Mg Cap, 40 MG PO DAILY Ondansetron (Zofran Odt) 8 Mg Tab, 8 MG PO DAILY Oxycodone HCl (Oxycontin) 30 Mg Tab, 30 MG PO BID Potassium Chloride (Potassium Chloride Cr) 20 Meq Tab, 20 MEQ PO BID Scheduled PRN Lorazepam (Lorazepam) 0.5 Mg Tab, 0.5 MG PO Q8H PRN for ANXIETY Morphine Sulfate (Morphine Sulfate) 30 Mg Tab, 30 MG PO Q8H PRN for PAIN Ondansetron (Zofran Odt) 8 Mg Tab, 8 MG PO Q8H PRN for NAUSEA OR VOMITING Trazodone HCl (Trazodone HCl) 50 Mg Tab, 50 MG PO QHS PRN for INSOMNIA Allergies Coded Allergies: Levofloxacin (Verified Allergy, Severe, AIRWAY CLOSES, 02/01/17) Penicillins (Verified Allergy, Severe, AIRWAY CLOSES, 02/01/17) JESSICA BECKMAN MD Jun 06, 2017 04:33
[2017-06-06] MEDS: LEVOTHYROXINE 12.5MCG PER 1/2 TAB (0.0125MG) PO SCH (04:58)
[2017-06-06] MEDS: LORazepam 0.5 MG TAB PO PRN (04:58)
[2017-06-06] MEDS: HYDROmorphone HCL 1 MG/ML SYRINGE (J1170) IV PRN ×5 (06:21→18:06)
[2017-06-06 07:25] VITALS: BP 136/70
--- NOTE | 2017-06-06 08:14 | REP ---
Chest one-view HISTORY: Preop Comparison: 11/22/2012 The lungs are clear. The heart is normal in size. The pulmonary vasculature is normal in appearance. A catheter is present in the superior vena cava. Impression: No acute disease. Signed by Carlo Escobar MD 06/06/2017 08:07 A
[2017-06-06] MEDS ORDERED: oxyCODONE 40 MG CR TAB PO SCH (09:00)
[2017-06-06] MEDS ORDERED: oxyCODONE 10 MG CR TAB PO SCH (09:00)
--- NOTE | 2017-06-06 09:03 | IPNPDOC ---
Subjective Date Seen The patient was seen on 06/06/17. Subjective Chief Complaint/HPI The patient is a 62-year-old female admitted with a reason for visit of Hip Fx. Events since last encounter Patient states that she was turning while standing and she heard her right hip "pop" - she did not fall at all. She is c/o severe pain in her right hip. She tells me that her pain specialist recently increased her morphine 30 mg to 5 times daily PRN, but she states she does not use it that often; she states the morphine does not help her pain much. Constitutional: Denies: Chills, Fever ENT: Denies: Head Aches Pulmonary: Denies: Dyspnea, Cough Cardiovascular: Denies: Chest Pain, Palpitations, Orthopnea Gastrointestinal: Denies: Nausea, Vomiting, Abdominal Pain, Diarrhea Genitourinary: Denies: Dysuria Musculoskeletal: Reports: Joint Pain (right hip, 04/13) Neurological: Denies: Change in speech, Confusion Psych: Reports: Mood Normal Objective Physical Examination General Exam: Positive: Alert, Cooperative, Mild Distress ENT Exam: Positive: Atraumatic Heart Exam: Positive: Rate Normal, Regular Rhythm, Normal S1, Normal S2, Negative: Murmurs Abdomen Exam: Positive: Soft, Negative: Tenderness Extremity Exam: Positive: Tenderness (right hip), Negative: Edema Skin Exam: Positive: Nl turgor and temperature, Negative: Rash Neuro Exam: Positive: Normal Speech, Cranial Nerves 3-12 NL Psych Exam: Positive: Oriented x 3 Assessment /Plan Problems (1) Closed right hip fracture Status: Acute Discussed With: Atomic Process Engineer Problem Specific Plan: Consult Specialist Problem Text: Ortho consulted, case discussed with Cortney Good. Patient's Eliquis was stopped upon admission, but she will not be able to have surgery until she has been off of Eliquis for 3 days - surgery will likely take placed on 06/09. - Check ECG for cardiac clearance - Pain management - patient is tolerant to opioids due to chronic opioids ( oxycontin 30 mg BID and morphine 30 mg 5 times daily as needed); dilaudid 1 mg Q3H is helping her pain but is wearing off to early. For now, I will increase her oxycontin dose to 40 mg BID and continue her dilaudid; we may need to change her to a PHARM SPEC if pain remains uncontrolled. (2) History of DVT (deep vein thrombosis) Status: Chronic Problem Text: She was diagnosed with a DVT in 01/2017; Eliquis is currently be held for surgery - She is at increased risk of recurrent DVT due to underlying malignancy - We may need to communicate with her Oncologist in [place] to determine best anticoagulant to be used post-op (3) Stage 4 malignant neoplasm of lung Status: Chronic Problem Text: S/p Keytruda and palliative radiation to ribs for bone mets - Follows with Oncologist in [place] - Patient states her last PET scan looked "really good" and that her Oncologist told her she is doing "really well"; I am concerned that she has an overly optimistic view of her stage 4 lung cancer, particularly as she is now having fractures with minor activity due to bone mets (4) Chronic pain Status: Chronic Response to Treatment: Worse Problem Text: Increase oxycontin from 30 mg BID to 40 mg BID; she is managed by a pain specialist in [place] - Hold home PO morphine - Continue dilaudid - Pain consult placed Plan/VTE VTE Prophylaxis Ordered?: Yes (TEDS/SCDs) VS, I&O, 24H, [facility] Vital Signs/I&O Vital Signs Date Time Temp Pulse Resp B/P (MAP) Pulse Ox O2 Delivery O2 Flow Rate FiO2 06/06/17 06:24 125/69 (87) 06/06/17 06:24 98.0 18 98 Room Air 06/06/17 06:13 96 Laboratory Data 24H LABS Laboratory Tests 2 06/06/17 02:55: Immature Granulocyte % (Auto) 0.6H, White Blood Count 8.7, Red Blood Count 4.54 , Hemoglobin 14.1, Hematocrit 40.9, Mean Corpuscular Volume 90.1, Mean Corpuscular Hemoglobin 31.1, Mean Corpuscular Hemoglobin Concent 34.5, Red Cell Distribution Width 15.3H, Platelet Count 337, Neutrophils (%) (Auto) 75.8H, Lymphocytes (%) (Auto) 12.9L, Monocytes (%) (Auto) 9.9H, Eosinophils (%) (Auto) 0.5, Basophils (%) (Auto) 0.3, Neutrophils # (Auto) 6.6, Lymphocytes # (Auto) 1.1L, Monocytes # (Auto) 0.9H, Eosinophils # (Auto) 0.0, Basophils # (Auto) 0.0 , Immature Granulocyte # (Auto) 0.1H, Nucleated Red Blood Cells % (auto) 0.0, Prothrombin Time 14.6H, Prothromb Time International Ratio 1.12, Activated Partial Thromboplast Time 31.3, Anion Gap 8, Glomerular Filtration Rate > 60.0, Blood Urea Nitrogen 18, Creatinine 0.54L, Sodium Level 139, Potassium Level 3.9 , Chloride Level 105, Carbon Dioxide Level 26, Calcium Level 8.6L CBC/BMP Laboratory Tests 06/06/17 02:55 Red Blood Count 4.54, Mean Corpuscular Volume 90.1, Mean Corpuscular Hemoglobin 31.1, Mean Corpuscular Hemoglobin Concent 34.5, Red Cell Distribution Width 15.3 H, Neutrophils (%) (Auto) 75.8 H, Lymphocytes (%) (Auto) 12.9 L, Monocytes (%) (Auto) 9.9 H, Eosinophils (%) (Auto) 0.5, Basophils (%) (Auto) 0.3, Neutrophils # (Auto) 6.6, Lymphocytes # (Auto) 1.1 L, Monocytes # (Auto) 0.9 H, Eosinophils # (Auto) 0.0, Basophils # (Auto) 0.0, Calcium Level 8.6 L JUAN URRUTIA MD Jun 06, 2017 09:03
[2017-06-06] MEDS: ESCITALOPRAM OXALATE 10 MG TAB (LEXAPRO) PO SCH (09:06)
[2017-06-06] MEDS: POTASSIUM CHLORIDE 10 MEQ SR TABLET PO SCH ×2 (09:06→21:00)
[2017-06-06] MEDS: OMEPRAZOLE 20 MG CAP PO SCH (09:06)
[2017-06-06] MEDS: DRONABINOL 2.5 MG CAP (MARINOL) PO SCH ×2 (09:06→17:31)
--- NOTE | 2017-06-06 09:11 | REP ---
RIGHT HIP, TWO VIEWS: HISTORY: Fall. There is a fracture of the neck of the right femur. There is minimal lateral displacement of the distal fracture fragment. There is no dislocation. There is narrowing of the hip joint space. IMPRESSION: Right femoral neck fracture. Signed by Carlo Escobar MD 06/06/2017 09:29 A
--- NOTE | 2017-06-06 09:12 | REP ---
PELVIS, ONE VIEW: HISTORY: Fall. There is a fracture of the neck of the right femur. There is lateral displacement of the distal fracture fragment. There is no dislocation. There is narrowing of the hip joint spaces. IMPRESSION: Right femoral neck fracture. Signed by Carlo Escobar MD 06/06/2017 09:29 A
--- NOTE | 2017-06-06 11:55 | CR.PDOC ---
[facility] Consultation Consultation DATE OF CONSULTATION: Jun 06, 2017 at 00:58 PRIMARY CARE PROVIDER: Dr. Janey Gamboa ATTENDING: Dr. Janey Gamboa CHIEF COMPLAINT: Hip pain HISTORY OF PRESENT ILLNESS: Patient is a 62 y/o female home ambulator with a cane with stage IV lung cancer diagnosed in November 2016 with metastases in liver, spleen, bone who sustained a mechanical fall in her home yesterday and had inability to bear weight and presented to the ED for evaluation. She was found to have a R femoral neck fx and orthopedics was consulted for management. Patient has a history of DVT and is on eliquis. Last dose at approximately 7pm yesterday. Patient with chronic pain at baseline but with increasing pain localized to R hip. PAST MEDICAL HISTORY: Lung CA per HPI. On Keytruda for chemotherapy PAST SURGICAL HISTORY: Cholecystectomy, varicose vein stripping, hysterectomy SOCIAL HISTORY: Smokes 1 pack per day since the age of 25, denies alcohol or illicit drug use. FAMILY HISTORY: Noncontributory ALLERGIES: Please see below. REVIEW OF SYSTEMS: HEENT: Denies sore throat/headache CARDIOVASCULAR: Denies chest pain/palpitations RESPIRATORY: Denies shortness of breath/cough GASTROINTESTINAL: denies nausea/vomiting GENITOURINARY: Denies dysuria/urinary urgency. MUSCULOSKELETAL: Denies myalgias/arthralgias NEUROLOGICAL: Denies any focal weakness HOME MEDICATIONS: Please see below. PHYSICAL EXAMINATION: Vitals: (see below) General: Mild distress secondary to right hip pain Neuro: AAOx3, sensation/motor intact in all distributions RLE Cardiac: 2+ DP/PT pulses, bcr all digits RLE Pulm: Non labored breathing Musculoskeletal: focused physical exam of the RLE demonstrates a shortened, externallly rotated RLE. Diffuse tenderness about hip. No open wounds or abrasions. 5/5 motor strength ankle PF/DF, 4/5 quadriceps LABORATORY DATA: See below. IMAGING: Plain radiographs of the palvis and R hip demonstrate a displaced femoral neck fracture MICROBIOLOGY: Please see below. ASSESSMENT: 62 y/o female with a presumed pathologic R proximal femur fracture Plan/recommendations: -I had a long conversation with the patient regarding the nature of her injury , goals of surgical and non surgical treatment, and prognosis. For remaining quality of life and pain control, I recommend R hip cemented hemiarthroplasty. Patient was counseled that the goal is mainly palliative for pain control and for household ambulation. She expressed understanding and would like to proceed with surgery. -For patients on eliquis, there is typically a 72 hour washout period required prior to safely being able to perform spinal anesthesia. If she requires therapeutic dose of dvt treatment during hospitalization, recommend heparin drip which can be titrated for surgery. Therapeutic lovenox can also be done but recommend coordination with anesthesiologist regarding safety of spinal anesthesia for timing of fracture fixation. -Will continue to follow patient and proceed with R hip hemiarthroplasty when medically optimized and safe for spinal anesthesia. Venancio Burgess MD Orthopedic surgeon Vital Signs/I&O Vital Signs Date Time Temp Pulse Resp B/P (MAP) Pulse Ox O2 Delivery O2 Flow Rate FiO2 06/06/17 11:24 18 06/06/17 07:25 96.9 98 136/70 (92) 96 Room Air I&O- Last 24 Hours up to 6 AM 06/07/17 06:00 Intake Total 0 ml Balance 0 ml Laboratory Data Labs 24H Laboratory Tests 2 06/06/17 02:55: Immature Granulocyte % (Auto) 0.6H, White Blood Count 8.7, Red Blood Count 4.54 , Hemoglobin 14.1, Hematocrit 40.9, Mean Corpuscular Volume 90.1, Mean Corpuscular Hemoglobin 31.1, Mean Corpuscular Hemoglobin Concent 34.5, Red Cell Distribution Width 15.3H, Platelet Count 337, Neutrophils (%) (Auto) 75.8H, Lymphocytes (%) (Auto) 12.9L, Monocytes (%) (Auto) 9.9H, Eosinophils (%) (Auto) 0.5, Basophils (%) (Auto) 0.3, Neutrophils # (Auto) 6.6, Lymphocytes # (Auto) 1.1L, Monocytes # (Auto) 0.9H, Eosinophils # (Auto) 0.0, Basophils # (Auto) 0.0 , Immature Granulocyte # (Auto) 0.1H, Nucleated Red Blood Cells % (auto) 0.0, Prothrombin Time 14.6H, Prothromb Time International Ratio 1.12, Activated Partial Thromboplast Time 31.3, Anion Gap 8, Glomerular Filtration Rate > 60.0, Blood Urea Nitrogen 18, Creatinine 0.54L, Sodium Level 139, Potassium Level 3.9 , Chloride Level 105, Carbon Dioxide Level 26, Calcium Level 8.6L CBC/BMP Laboratory Tests 06/06/17 02:55 Red Blood Count 4.54, Mean Corpuscular Volume 90.1, Mean Corpuscular Hemoglobin 31.1, Mean Corpuscular Hemoglobin Concent 34.5, Red Cell Distribution Width 15.3 H, Neutrophils (%) (Auto) 75.8 H, Lymphocytes (%) (Auto) 12.9 L, Monocytes (%) (Auto) 9.9 H, Eosinophils (%) (Auto) 0.5, Basophils (%) (Auto) 0.3, Neutrophils # (Auto) 6.6, Lymphocytes # (Auto) 1.1 L, Monocytes # (Auto) 0.9 H, Eosinophils # (Auto) 0.0, Basophils # (Auto) 0.0, Calcium Level 8.6 L Allergies Coded Allergies: Levofloxacin (Verified Allergy, Severe, AIRWAY CLOSES, 02/01/17) Penicillins (Verified Allergy, Severe, AIRWAY CLOSES, 02/01/17) Home Medications Scheduled Apixaban Base (Eliquis) 5 Mg Tab, 5 MG PO BID, (Reported) Calcium/Vitamin D (Calcium 500 +D 500-400 mg-Unit) 1 Tab Tab, 1 TAB PO DAILY, ( Reported) Dronabinol (Dronabinol) 10 Mg Cap, 10 MG PO BID, (Reported) BEFORE MEALS Escitalopram Oxalate (Escitalopram Oxalate) 20 Mg Tab, 20 MG PO DAILY, (Reported ) Levothyroxine Sodium (Levo-T) 25 Mcg Tab, 12.5 MCG PO DAILY, (Reported) Omeprazole (Omeprazole) 40 Mg Cap, 40 MG PO DAILY, (Reported) Ondansetron (Zofran Odt) 8 Mg Tab, 8 MG PO DAILY, (Reported) Oxycodone HCl (Oxycontin) 30 Mg Tab, 30 MG PO BID, (Reported) Potassium Chloride (Potassium Chloride Cr) 20 Meq Tab, 20 MEQ PO BID, (Reported) Scheduled PRN Lorazepam (Lorazepam) 0.5 Mg Tab, 0.5 MG PO Q8H PRN for ANXIETY, (Reported) Morphine Sulfate (Morphine Sulfate) 30 Mg Tab, 30 MG PO Q8H PRN for PAIN, ( Reported) Ondansetron (Zofran Odt) 8 Mg Tab, 8 MG PO Q8H PRN for NAUSEA OR VOMITING, ( Reported) Trazodone HCl (Trazodone HCl) 50 Mg Tab, 50 MG PO QHS PRN for INSOMNIA, ( Reported) BERNADETTE BURGESS MD Jun 06, 2017 11:55
[2017-06-06 12:00] VITALS: BP 131/70
--- NOTE | 2017-06-06 12:23 | ECGEPIP ---
Stationary ECG Study [facility] Test Date: 2017-06-06 Pat Name: CHINTAN DYE Department: Room: [place] [address] Gender: F Vamp Presser: : [id number] Requested By: JUAN Quesada Order Number: [id number] Reading MD: Gabriela Cesar Measurements Intervals [place] Rate: 102 P: 65 AR: 144 QRS: -12 QRSD: 87 T: 40 QT: 348 QTc: 454 Interpretive Statements SINUS TACHYCARDIA LOW VOLTAGE LIMB LEADS RATE FASTER C/W 10/08/16 Electronically Signed On 06-06-2017 12:23:09 EST by Gabriela Cesar
[2017-06-06 14:54] VITALS: BP 139/65
[2017-06-06 15:30] VITALS: BP 149/77
[2017-06-06] MEDS ORDERED: HEPARIN SOD (PORCINE) 5000 UNITS/ML VIAL IV PRN (15:30)
[2017-06-06 16:11] LABS: MEAN CORPUSCULAR HEMOGLOBIN 31.4 pg (27.0-33.0); MEAN CORPUSCULAR HGB CONC 34.8 g/dl (32.0-36.5); MEAN CORPUSCULAR VOLUME 90.3 fl (80.0-96.0); PLATELET COUNT, AUTOMATED 345 10^3/uL (150-450); RED CELL DISTRIBUTION WIDTH 14.9 % (11.5-14.5)
[2017-06-06] MEDS: HEPARIN DRIP 25,000 UNITS in APPROPRIATE DILUENT 1 EA IV SCH (16:41)
[2017-06-06] MEDS: ACETAMINOPHEN TAB 650MG DOSE (2X325MG) PO PRN (17:31)
[2017-06-06 18:00] VITALS: BP 126/76
[2017-06-06] MEDS ORDERED: oxyCODONE 20 MG CR TAB PO SCH (21:00)
[2017-06-06 21:25] LABS: INR 1.13
[2017-06-06] MEDS: traZODone 50 MG TAB PO PRN (21:33)
[2017-06-06] MEDS: oxyCODONE 40 MG CR TAB PO SCH (21:34)
[2017-06-06 22:00] VITALS: BP 134/81
[2017-06-07] MEDS: HYDROmorphone HCL 1 MG/ML SYRINGE (J1170) IV PRN ×7 (01:01→20:44)
[2017-06-07 02:00] VITALS: BP 126/70
[2017-06-07 04:25] LABS: MEAN CORPUSCULAR HEMOGLOBIN 30.3 pg (27.0-33.0); MEAN CORPUSCULAR HGB CONC 33.4 g/dl (32.0-36.5); MEAN CORPUSCULAR VOLUME 90.7 fl (80.0-96.0); PLATELET COUNT, AUTOMATED 346 10^3/uL (150-450); RED CELL DISTRIBUTION WIDTH 15.1 % (11.5-14.5); WHITE BLOOD COUNT 8.9 10^3/uL (4.0-10.0)
[2017-06-07 04:42] LABS: ANION GAP 7 MEQ/L (8-16); BLOOD UREA NITROGEN 11 MG/DL (7-18); CALCIUM LEVEL 8.8 MG/DL (8.8-10.2); CARBON DIOXIDE LEVEL 26 MEQ/L (21-32); CHLORIDE LEVEL 106 MEQ/L (98-107); CREATININE FOR GFR 0.37 MG/DL (0.55-1.02); GLOMERULAR FILTRATION RATE > 60.0 (>45); GLUCOSE, FASTING 91 MG/DL (80-110); MAGNESIUM LEVEL 1.7 MG/DL (1.8-2.4); POTASSIUM SERUM 3.5 MEQ/L (3.5-5.1); SODIUM LEVEL 139 MEQ/L (136-145)
[2017-06-07] MEDS: LEVOTHYROXINE 12.5MCG PER 1/2 TAB (0.0125MG) PO SCH (05:34)
[2017-06-07 06:00] VITALS: BP 133/78
[2017-06-07] MEDS: POTASSIUM CHLORIDE 10 MEQ SR TABLET PO SCH ×2 (08:22→20:36)
[2017-06-07] MEDS: ESCITALOPRAM OXALATE 10 MG TAB (LEXAPRO) PO SCH (08:22)
[2017-06-07] MEDS: OMEPRAZOLE 20 MG CAP PO SCH (08:22)
[2017-06-07] MEDS: DRONABINOL 2.5 MG CAP (MARINOL) PO SCH ×2 (08:23→17:00)
[2017-06-07] MEDS: oxyCODONE 40 MG CR TAB PO SCH ×2 (08:29→20:36)
--- NOTE | 2017-06-07 08:41 | IPNPDOC ---
Subjective Date Seen The patient was seen on 06/07/17. Subjective Chief Complaint/HPI The patient is a 62-year-old female admitted with a reason for visit of Hip Fx. Events since last encounter Pt this morning without new concerns. She states that her pain currently remains in her R hip, radiates into the upper leg. She does cont to have loose stools which generally for her occurs after chemo, state it is lasting a bit longer than usual. Nursing aware, has GI panel ordered. General: Denies: Fatigue Constitutional: Denies: Chills, Fever Pulmonary: Denies: Dyspnea, Cough Cardiovascular: Denies: Chest Pain, Palpitations Gastrointestinal: Reports: Diarrhea, Denies: Nausea, Vomiting, Constipation Neurological: Denies: Weakness Psych: Reports: Mood Normal Objective Physical Examination General Exam: Positive: Alert, Cooperative, Mild Distress ENT Exam: Positive: Atraumatic Chest Exam: Positive: Clear to auscultation, Normal air movement Heart Exam: Positive: Rate Normal, Regular Rhythm, Normal S1, Normal S2, Negative: Murmurs Abdomen Exam: Positive: Soft, Negative: Tenderness Extremity Exam: Positive: Tenderness (right hip), Negative: Edema Skin Exam: Positive: Nl turgor and temperature, Negative: Rash Neuro Exam: Positive: Normal Speech, Cranial Nerves 3-12 NL Psych Exam: Positive: Oriented x 3 Assessment /Plan Problems (1) Closed right hip fracture Status: Acute Discussed With: Radiator Repairer Problem Specific Plan: Consult Specialist Problem Text: 06/07 - Anticipate OR 06/09. Pain reasonably controlled. 06/06 Ortho consulted, case discussed with Cortney Good. Patient's Eliquis was stopped upon admission, but she will not be able to have surgery until she has been off of Eliquis for 3 days - surgery will likely take placed on 06/09. - Check ECG for cardiac clearance - Pain management - patient is tolerant to opioids due to chronic opioids ( oxycontin 30 mg BID and morphine 30 mg 5 times daily as needed); dilaudid 1 mg Q3H is helping her pain but is wearing off to early. For now, I will increase her oxycontin dose to 40 mg BID and continue her dilaudid; we may need to change her to a TROLLEY COLLECTOR if pain remains uncontrolled. (2) History of DVT (deep vein thrombosis) Status: Chronic Problem Text: She was diagnosed with a DVT in 01/2017; Eliquis is currently be held for surgery - She is at increased risk of recurrent DVT due to underlying malignancy - We may need to communicate with her Oncologist in [place] to determine best anticoagulant to be used post-op (3) Stage 4 malignant neoplasm of lung Status: Chronic Problem Text: S/p Keytruda and palliative radiation to ribs for bone mets - Follows with Oncologist in [place] - Patient states her last PET scan looked "really good" and that her Oncologist told her she is doing "really well"; I am concerned that she has an overly optimistic view of her stage 4 lung cancer, particularly as she is now having fractures with minor activity due to bone mets (4) Chronic pain Status: Chronic Response to Treatment: Worse Problem Text: Increase oxycontin from 30 mg BID to 40 mg BID; she is managed by a pain specialist in [place] - Hold home PO morphine - Continue dilaudid - Pain consult placed Plan/VTE VTE Prophylaxis Ordered?: Yes (TEDS/SCDs) VS, I&O, 24H, Fishbone Vital Signs/I&O Vital Signs Date Time Temp Pulse Resp B/P (MAP) Pulse Ox O2 Delivery O2 Flow Rate FiO2 06/07/17 08:29 16 Room Air 06/07/17 06:00 97.1 107 133/78 (96) 97 Laboratory Data 24H LABS Laboratory Tests 2 06/06/17 16:03: Nucleated Red Blood Cells % (auto) 0.0, Activated Partial Thromboplast Time 28.9 06/06/17 20:59: Activated Partial Thromboplast Time 56.1H, Prothrombin Time 14.7H, Prothromb Time International Ratio 1.13 06/07/17 03:36: Nucleated Red Blood Cells % (auto) 0.0, Activated Partial Thromboplast Time 153.4*H, Anion Gap 7L, Glomerular Filtration Rate > 60.0, Blood Urea Nitrogen 11 , Creatinine 0.37L, Sodium Level 139, Potassium Level 3.5, Chloride Level 106, Carbon Dioxide Level 26, Calcium Level 8.8, Magnesium Level 1.7L CBC/BMP Laboratory Tests 06/06/17 16:03 Red Blood Count 4.43, Mean Corpuscular Volume 90.3, Mean Corpuscular Hemoglobin 31.4, Mean Corpuscular Hemoglobin Concent 34.8, Red Cell Distribution Width 14.9 H 06/07/17 03:36 Red Blood Count 4.39, Mean Corpuscular Volume 90.7, Mean Corpuscular Hemoglobin 30.3, Mean Corpuscular Hemoglobin Concent 33.4, Red Cell Distribution Width 15.1 H, Calcium Level 8.8 ALEXANDRIA RODRIGUEZ PA-C Jun 07, 2017 08:41
[2017-06-07 10:00] VITALS: BP 130/76
[2017-06-07] MEDS: ACETAMINOPHEN TAB 650MG DOSE (2X325MG) PO PRN ×2 (11:46→19:50)
[2017-06-07 14:00] VITALS: BP 111/64
[2017-06-07] MEDS: HEPARIN DRIP 25,000 UNITS in APPROPRIATE DILUENT 1 EA IV SCH (14:58)
--- NOTE | 2017-06-07 17:15 | CR ---
DATE OF CONSULTATION: 06/07/2017 CHIEF COMPLAINT: Right hip pain. HISTORY OF PRESENT ILLNESS: Amber is a 62-year-old female who suffers from chronic pain with a history of metastatic lung cancer with metastasis to liver, spleen, bone with prior pathologic fractures of the ribs. Admitted yesterday due to severe right hip pain and noted to have a right hip fracture. The patient is in extreme pain this afternoon upon consult visit. Rating pain level as an 8/10. Currently receiving Dilaudid 1 mg every three hours as needed for severe pain episodes. Has been on OxyContin 40 mg twice a day at home. Describes right hip pain as sharp and shooting. Pain is unbearable with any movement in bed. PAST MEDICAL HISTORY: 1. Metastatic lung cancer. 2. History of deep vein thrombosis (DVT) on Eliquis 3. Depression. PAST SURGICAL HISTORY: 1. Cystectomy. 2. Varicose vein stripping. 3. Hysterectomy. SOCIAL HISTORY: Smokes one-pack per day. Denies alcohol or illicit drug use. ALLERGIES: LEVOFLOXACIN, PENICILLINS. REVIEW OF SYSTEMS: GASTROINTESTINAL (GI): Denies nausea or vomiting. Reporting normal bowel movements. GENITOURINARY (): Denies painful urination. Denies urinary incontinence. MUSCULOSKELETAL: Generalized pain but mainly in the right hip over the past week. NEUROLOGIC: Denies seizures. Denies chronic headache. CONSTITUTIONAL: Denies recent fever or illness. CARDIOVASCULAR: Denies chest pains or shortness of breath. RESPIRATORY: Denies cough or shortness of breath. PHYSICAL EXAMINATION: Resting in bed. Uncomfortable. Family member at bedside. VITAL SIGNS: Temperature 98.8, pulse 108, respiratory rate 18, blood pressure 111/64, oxygen saturation is 95% on room air. CARDIAC: S1, S2, normal rate and rhythm. RESPIRATORY: Lung sounds with coarse rhonchi on exhalation. MUSCULOSKELETAL: Obvious tenderness over right hip noted. INSPECTION: Legs are warm to touch. Reports normal sensation to light touch lower extremities and feet. Unable to move freely in bed due to pain. ASSESSMENT: 1. Acute right hip pain. 2. Metastatic lung carcinoma (CA). PLAN: Recommend starting OxyContin 20 mg midday in addition to her 40 mg morning and evening. I would recommend using Dilaudid 1 mg every two hours IV as needed for severe pain episodes. Consider use of Celebrex 200 mg twice a day for metastatic bone and joint pain. Thank you for allowing us to participate in the care of your patient, Amber Neville. If you have any questions or concerns, please do not hesitate to contact me. Sincerely, Vianney Mackey, Family Nurse Practitioner, [facility], [facility]
[2017-06-07] MEDS: traZODone 50 MG TAB PO PRN (20:44)
[2017-06-07] MEDS: LOPERAMIDE 2 MG CAP PO PRN (21:56)
[2017-06-07 22:00] VITALS: BP 131/71
[2017-06-08] VITALS (7 sets, daily range): BP systolic 115–134; BP diastolic 58–73
--- NOTE | 2017-06-08 05:04 | REP ---
Clinical: Trauma. Technique: AP and lateral views of the right femur. Findings: There is a comminuted right femoral neck fracture. Joint space appears intact with increased sclerosis to the acetabular roof and minimal joint space narrowing. Impression: Fracture through the femoral head/neck. Signed by Colten Andrade MD 06/08/2017 04:55 A
[2017-06-08] MEDS: LEVOTHYROXINE 12.5MCG PER 1/2 TAB (0.0125MG) PO SCH (06:10)
[2017-06-08] MEDS: HYDROmorphone HCL 1 MG/ML SYRINGE (J1170) IV PRN ×6 (06:11→23:00)
[2017-06-08 06:23] LABS: MEAN CORPUSCULAR HEMOGLOBIN 30.8 pg (27.0-33.0); MEAN CORPUSCULAR HGB CONC 34.2 g/dl (32.0-36.5); MEAN CORPUSCULAR VOLUME 90.1 fl (80.0-96.0); PLATELET COUNT, AUTOMATED 343 10^3/uL (150-450); RED CELL DISTRIBUTION WIDTH 15.1 % (11.5-14.5); WHITE BLOOD COUNT 7.8 10^3/uL (4.0-10.0)
[2017-06-08 06:47] LABS: ANION GAP 5 MEQ/L (8-16); BLOOD UREA NITROGEN 11 MG/DL (7-18); CALCIUM LEVEL 8.7 MG/DL (8.8-10.2); CARBON DIOXIDE LEVEL 30 MEQ/L (21-32); CHLORIDE LEVEL 103 MEQ/L (98-107); CREATININE FOR GFR 0.44 MG/DL (0.55-1.02); GLOMERULAR FILTRATION RATE > 60.0 (>45); GLUCOSE, FASTING 99 MG/DL (80-110); MAGNESIUM LEVEL 1.9 MG/DL (1.8-2.4); POTASSIUM SERUM 4.1 MEQ/L (3.5-5.1); SODIUM LEVEL 138 MEQ/L (136-145)
[2017-06-08] MEDS: OMEPRAZOLE 20 MG CAP PO SCH (08:50)
[2017-06-08] MEDS: POTASSIUM CHLORIDE 10 MEQ SR TABLET PO SCH ×2 (09:02→21:00)
[2017-06-08] MEDS: DRONABINOL 2.5 MG CAP (MARINOL) PO SCH ×2 (09:02→16:33)
[2017-06-08] MEDS: oxyCODONE 40 MG CR TAB PO SCH ×2 (09:03→20:58)
[2017-06-08] MEDS: ESCITALOPRAM OXALATE 10 MG TAB (LEXAPRO) PO SCH (09:03)
--- NOTE | 2017-06-08 12:35 | IPNPDOC ---
Subjective Date Seen The patient was seen on 06/08/17. Subjective Chief Complaint/HPI The patient is a 62-year-old female admitted with a reason for visit of Hip Fx. Events since last encounter Still c/o pain. No SOB or CP Constitutional: Denies: Chills, Fever Pulmonary: Denies: Dyspnea, Cough Cardiovascular: Denies: Chest Pain, Palpitations, Orthopnea Gastrointestinal: Denies: Nausea, Vomiting, Abdominal Pain, Diarrhea, Constipation Musculoskeletal: Reports: Leg Pain Objective Physical Examination General Exam: Positive: Alert, Cooperative, Mild Distress ENT Exam: Positive: Atraumatic Chest Exam: Positive: Clear to auscultation, Normal air movement Heart Exam: Positive: Rate Normal, Regular Rhythm, Normal S1, Normal S2, Negative: Murmurs Abdomen Exam: Positive: Soft, Negative: Tenderness Extremity Exam: Positive: Tenderness (right hip), Negative: Edema Skin Exam: Positive: Nl turgor and temperature, Negative: Rash Neuro Exam: Positive: Normal Speech, Cranial Nerves 3-12 NL Psych Exam: Positive: Oriented x 3 Assessment /Plan Problems (1) Closed right hip fracture Status: Acute Discussed With: Cloth Packer Problem Specific Plan: Consult Specialist Problem Text: 06/08 - cont current pain meds. plan surgery tomorrow (72 hours from stopping Eliquis) EKG on admission ST. 06/06 Ortho consulted, case discussed with Cortney Good. Patient's Eliquis was stopped upon admission, but she will not be able to have surgery until she has been off of Eliquis for 3 days - surgery will likely take placed on 06/09. - Pain management - patient is tolerant to opioids due to chronic opioids ( oxycontin 30 mg BID and morphine 30 mg 5 times daily as needed); dilaudid 1 mg Q3H is helping her pain but is wearing off to early. For now, I will increase her oxycontin dose to 40 mg BID and continue her dilaudid; we may need to change her to a TRAVELING AUDITOR if pain remains uncontrolled. (2) History of DVT (deep vein thrombosis) Status: Chronic Problem Text: She was diagnosed with a DVT in 01/2017; Eliquis is currently be held for surgery - She is at increased risk of recurrent DVT due to underlying malignancy - We may need to communicate with her Oncologist in [place] to determine best anticoagulant to be used post-op (3) Stage 4 malignant neoplasm of lung Status: Chronic Problem Text: S/p Keytruda and palliative radiation to ribs for bone mets - Follows with Oncologist in [place] - Patient states her last PET scan looked "really good" and that her Oncologist told her she is doing "really well"; I am concerned that she has an overly optimistic view of her stage 4 lung cancer, particularly as she is now having fractures with minor activity due to bone mets (4) Chronic pain Status: Chronic Response to Treatment: Worse Problem Text: Increase oxycontin from 30 mg BID to 40 mg BID; she is managed by a pain specialist in [place] - Hold home PO morphine - Continue dilaudid - Pain consult placed Plan/VTE VTE Prophylaxis Ordered?: Yes (TEDS/SCDs) VS, I&O, 24H, Fishbone Vital Signs/I&O Vital Signs Date Time Temp Pulse Resp B/P (MAP) Pulse Ox O2 Delivery O2 Flow Rate FiO2 06/08/17 11:11 Room Air 06/08/17 10:31 16 06/08/17 06:00 96.8 75 123/58 (79) 97 Laboratory Data 24H LABS Laboratory Tests 2 06/07/17 18:04: Activated Partial Thromboplast Time 99.1H 06/08/17 05:57: Activated Partial Thromboplast Time 81.7H, Nucleated Red Blood Cells % (auto) 0.0, Anion Gap 5L, Glomerular Filtration Rate > 60.0, Blood Urea Nitrogen 11, Creatinine 0.44L, Sodium Level 138, Potassium Level 4.1, Chloride Level 103, Carbon Dioxide Level 30, Calcium Level 8.7L, Magnesium Level 1.9 CBC/BMP Laboratory Tests 06/08/17 05:57 Red Blood Count 4.45, Mean Corpuscular Volume 90.1, Mean Corpuscular Hemoglobin 30.8, Mean Corpuscular Hemoglobin Concent 34.2, Red Cell Distribution Width 15.1 H, Calcium Level 8.7 L Microbiology Microbiology 06/07/17 Stool Occult Blood (DARCIE) - Final, Complete 06/07/17 Gastrointestinal Tract Panel (PCR) - Final, Complete 06/07/17 Stool Occult Blood (DARCIE) - Final, Complete ALBINA ALFORD PA-C Jun 08, 2017 12:35
[2017-06-08] MEDS: HEPARIN DRIP 25,000 UNITS in APPROPRIATE DILUENT 1 EA IV SCH (14:50)
[2017-06-08] MEDS: LOPERAMIDE 2 MG CAP PO PRN (19:55)
[2017-06-08] MEDS: CelecoXIB (CeleBREX) 100 MG CAP PO SCH (21:00)
[2017-06-08] MEDS: traZODone 50 MG TAB PO PRN (23:10)
[2017-06-09] VITALS (9 sets, daily range): BP systolic 97–128; BP diastolic 59–72; O2SAT 96
[2017-06-09] MEDS: HYDROmorphone HCL 1 MG/ML SYRINGE (J1170) IV PRN ×5 (02:09→23:34)
[2017-06-09] MEDS: HEPARIN DRIP 25,000 UNITS in APPROPRIATE DILUENT 1 EA IV SCH (04:30)
[2017-06-09] MEDS: LEVOTHYROXINE 12.5MCG PER 1/2 TAB (0.0125MG) PO SCH (05:52)
[2017-06-09 06:38] LABS: MEAN CORPUSCULAR HEMOGLOBIN 30.6 pg (27.0-33.0); MEAN CORPUSCULAR HGB CONC 34.2 g/dl (32.0-36.5); MEAN CORPUSCULAR VOLUME 89.4 fl (80.0-96.0); PLATELET COUNT, AUTOMATED 353 10^3/uL (150-450); WHITE BLOOD COUNT 7.6 10^3/uL (4.0-10.0)
[2017-06-09 07:11] LABS: ANION GAP 8 MEQ/L (8-16); BLOOD UREA NITROGEN 12 MG/DL (7-18); CALCIUM LEVEL 8.9 MG/DL (8.8-10.2); CARBON DIOXIDE LEVEL 27 MEQ/L (21-32); CHLORIDE LEVEL 104 MEQ/L (98-107); CREATININE FOR GFR 0.53 MG/DL (0.55-1.02); GLOMERULAR FILTRATION RATE > 60.0 (>45); GLUCOSE, FASTING 105 MG/DL (80-110); MAGNESIUM LEVEL 1.8 MG/DL (1.8-2.4); POTASSIUM SERUM 3.8 MEQ/L (3.5-5.1); SODIUM LEVEL 139 MEQ/L (136-145)
[2017-06-09] MEDS: DRONABINOL 2.5 MG CAP (MARINOL) PO SCH ×2 (07:30→17:30)
[2017-06-09] MEDS ORDERED: CLINDAMYCIN 600 MG in APPROPRIATE DILUENT 1 EA IV SCH (09:00)
[2017-06-09] MEDS: ESCITALOPRAM OXALATE 10 MG TAB (LEXAPRO) PO SCH (09:11)
[2017-06-09] MEDS: oxyCODONE 40 MG CR TAB PO SCH (09:11)
[2017-06-09] MEDS: CelecoXIB (CeleBREX) 100 MG CAP PO SCH ×2 (09:16→20:38)
[2017-06-09] MEDS: POTASSIUM CHLORIDE 10 MEQ SR TABLET PO SCH ×2 (09:17→20:38)
[2017-06-09] MEDS: OMEPRAZOLE 20 MG CAP PO SCH (09:17)
--- NOTE | 2017-06-09 09:47 | IPNPDOC ---
Subjective Date Seen The patient was seen on 06/09/17. Subjective Chief Complaint/HPI The patient is a 62-year-old female admitted with a reason for visit of Hip Fx. Events since last encounter Pain fairly well controlled. No new complaints Constitutional: Denies: Chills, Fever Pulmonary: Denies: Dyspnea, Cough Cardiovascular: Denies: Chest Pain, Palpitations Gastrointestinal: Denies: Nausea, Vomiting, Abdominal Pain, Diarrhea, Constipation Objective Physical Examination General Exam: Positive: Alert, Cooperative, Mild Distress ENT Exam: Positive: Atraumatic Chest Exam: Positive: Clear to auscultation, Normal air movement Heart Exam: Positive: Rate Normal, Regular Rhythm, Normal S1, Normal S2, Negative: Murmurs Abdomen Exam: Positive: Soft, Negative: Tenderness Extremity Exam: Positive: Tenderness (right hip), Negative: Edema Skin Exam: Positive: Nl turgor and temperature, Negative: Rash Neuro Exam: Positive: Normal Speech, Cranial Nerves 3-12 NL Psych Exam: Positive: Oriented x 3 Assessment /Plan Problems (1) Pathologic fracture of neck of right femur Status: Acute Problem Text: 06/09 - Plan for surgery today Pain meds as recommended by pain clinic Medically stable to undergo surgical procedure Eliquis held on admission 06/06 (2) Closed right hip fracture Status: Acute Discussed With: College Tutor Problem Specific Plan: Consult Specialist Problem Text: 06/08 - cont current pain meds. plan surgery tomorrow (72 hours from stopping Eliquis) EKG on admission ST. 06/06 Ortho consulted, case discussed with Cortney Good. Patient's Eliquis was stopped upon admission, but she will not be able to have surgery until she has been off of Eliquis for 3 days - surgery will likely take placed on 06/09. - Pain management - patient is tolerant to opioids due to chronic opioids ( oxycontin 30 mg BID and morphine 30 mg 5 times daily as needed); dilaudid 1 mg Q3H is helping her pain but is wearing off to early. For now, I will increase her oxycontin dose to 40 mg BID and continue her dilaudid; we may need to change her to a TIMING MACHINE OPERATOR if pain remains uncontrolled. (3) History of DVT (deep vein thrombosis) Status: Chronic Problem Text: She was diagnosed with a DVT in 01/2017; Eliquis is currently be held for surgery - She is at increased risk of recurrent DVT due to underlying malignancy - cont Heparin gtt for bridge - We may need to communicate with her Oncologist in [place] to determine best anticoagulant to be used post-op (4) Stage 4 malignant neoplasm of lung Status: Chronic Problem Text: S/p Keytruda and palliative radiation to ribs for bone mets - Follows with Oncologist in [place] - Patient states her last PET scan looked "really good" and that her Oncologist told her she is doing "really well"; I am concerned that she has an overly optimistic view of her stage 4 lung cancer, particularly as she is now having fractures with minor activity due to bone mets (5) Chronic pain Status: Chronic Response to Treatment: Worse Problem Text: Increase oxycontin from 30 mg BID to 40 mg BID; she is managed by a pain specialist in [place] - Hold home PO morphine - Continue dilaudid - Pain consult placed Plan/VTE VTE Prophylaxis Ordered?: Yes (TEDS/SCDs) VS, I&O, 24H, Fishbone Vital Signs/I&O Vital Signs Date Time Temp Pulse Resp B/P (MAP) Pulse Ox O2 Delivery O2 Flow Rate FiO2 06/09/17 09:11 19 06/09/17 06:00 97.7 97 121/60 (80) 96 Room Air Laboratory Data 24H LABS Laboratory Tests 2 06/09/17 06:29: Nucleated Red Blood Cells % (auto) 0.0, Anion Gap 8, Glomerular Filtration Rate > 60.0, Blood Urea Nitrogen 12, Creatinine 0.53L, Sodium Level 139, Potassium Level 3.8, Chloride Level 104, Carbon Dioxide Level 27, Calcium Level 8.9, Magnesium Level 1.8 CBC/BMP Laboratory Tests 06/09/17 06:29 Red Blood Count 4.61, Mean Corpuscular Volume 89.4, Mean Corpuscular Hemoglobin 30.6, Mean Corpuscular Hemoglobin Concent 34.2, Red Cell Distribution Width 15.0 H, Calcium Level 8.9 Microbiology Microbiology 06/07/17 Stool Occult Blood (DARCIE) - Final, Complete 06/07/17 Gastrointestinal Tract Panel (PCR) - Final, Complete 06/07/17 Stool Occult Blood (DARCIE) - Final, Complete ALBINA ALFORD PA-C Jun 09, 2017 09:47
[2017-06-09] MEDS: oxyCODONE 20 MG CR TAB PO SCH ×2 (12:00→20:38)
[2017-06-09] MEDS ORDERED: fentaNYL 100 MCG/2 ML INJECTION (J3010) As Ordered ONE ×3 (12:35→15:42)
[2017-06-09] MEDS ORDERED: PROPOFOL 200 MG/20 ML VIAL As Ordered ONE ×3 (12:35→15:42)
[2017-06-09] MEDS ORDERED: MIDAZOLAM INJ 2 MG/2 ML VIAL (J2250) As Ordered ONE ×3 (12:35→15:42)
[2017-06-09] MEDS ORDERED: KETAMINE HCL 200 MG/20 ML VIAL As Ordered ONE (13:08)
[2017-06-09] MEDS ORDERED: LIDOCAINE 2% INJ 100 MG/5 ML SDV (FOR ANES.) As Ordered ONE ×2 (13:08→15:42)
[2017-06-09] MEDS ORDERED: ceFAZolin 2 GM/D5W 50 ML IV BAG (J0690 PER 500MG) As Ordered ONE (13:15)
[2017-06-09] MEDS ORDERED: LIDOCAINE W/EPINEPHRINE 1% 20ML VIAL As Ordered ONE (14:25)
[2017-06-09] MEDS ORDERED: CLINDAMYCIN 600 MG/50 ML PREMIX BAG As Ordered ONE (14:33)
[2017-06-09] MEDS ORDERED: PHENYLephrine HCL 500 MCG/5 ML (100MCG/ML) SYRINGE (J2370) As Ordered ONE ×2 (14:37→15:25)
[2017-06-09] MEDS ORDERED: EPINEPHrine INJ 1 MG/ML 1ML AMP As Ordered ONE ×2 (14:48→14:53)
[2017-06-09] MEDS ORDERED: EPINEPHrine 1MG/10ML SYRINGE 1.5IN As Ordered ONE (14:49)
[2017-06-09] MEDS ORDERED: PHENYLEPHRINE INJ 10MG/ML VIAL (J2370) As Ordered ONE (15:17)
[2017-06-09] MEDS ORDERED: ONDANSETRON 4MG/2ML VIAL (J2405) As Ordered ONE (15:32)
[2017-06-09] MEDS ORDERED: HYDROmorphone HCL 1 MG/ML SYRINGE (J1170) IV PRN (16:45)
[2017-06-09] MEDS ORDERED: fentaNYL 100 MCG/2 ML INJECTION (J3010) IV PRN (16:45)
[2017-06-09] MEDS ORDERED: ONDANSETRON 4MG/2ML VIAL (J2405) IV PRN (16:45)
[2017-06-09] MEDS ORDERED: LR 1,000 ML IV SCH (16:45)
[2017-06-09] MEDS ORDERED: FLEET ENEMA PR PRN (16:45)
[2017-06-09] MEDS ORDERED: ACETAMINOPHEN TAB 650MG DOSE (2X325MG) PO PRN (16:45)
[2017-06-09 17:10] LABS: MEAN CORPUSCULAR HEMOGLOBIN 30.5 pg (27.0-33.0); MEAN CORPUSCULAR HGB CONC 32.9 g/dl (32.0-36.5); MEAN CORPUSCULAR VOLUME 92.7 fl (80.0-96.0); PLATELET COUNT, AUTOMATED 335 10^3/uL (150-450); RED CELL DISTRIBUTION WIDTH 15.4 % (11.5-14.5); WHITE BLOOD COUNT 8.1 10^3/uL (4.0-10.0)
--- NOTE | 2017-06-09 17:13 | REP ---
AP pelvis: 06/09/2017: Comparison: Pelvis and right hip 06/07/2017, 06/06/2017. Two views encompass the entirety of the pelvis show a right hip arthroplasty with the femoral head component articulating normally with the acetabulum and the femoral stem and applied to the sob[place] bone. No subluxation or dislocation. The pelvic ring intact. Pubic rami, pubic symphysis and iliac wings intact. Minor degenerative changes at the acetabular roof on both sides. Impression: 1. Status post right hip arthroplasty with femoral head component well seated in the soboba acetabulum and with the femoral stem component tightly applied to the sob[place] femoral shaft. No other acute finding. Signed by Roger Ochoa MD 06/09/2017 07:46 P
[2017-06-09] MEDS ORDERED: PERCOCET 5MG/325MG TAB As Ordered ONE ×2 (17:21→17:45)
[2017-06-09] MEDS: PERCOCET 5MG/325MG TAB PO PRN ×2 (17:21→17:48)
[2017-06-09] MEDS: LR 1,000 ML IV SCH (18:34)
[2017-06-09] MEDS: CLINDAMYCIN 600 MG in APPROPRIATE DILUENT 1 EA IV SCH (20:38)
[2017-06-09] MEDS: traZODone 50 MG TAB PO PRN (20:50)
[2017-06-09] MEDS: LORazepam 0.5 MG TAB PO PRN (22:22)
[2017-06-10] MEDS: HYDROmorphone HCL 1 MG/ML SYRINGE (J1170) IV PRN ×6 (02:33→21:43)
[2017-06-10] MEDS: CLINDAMYCIN 600 MG in APPROPRIATE DILUENT 1 EA IV SCH ×2 (02:33→08:12)
[2017-06-10] MEDS: LR 1,000 ML IV SCH (02:52)
[2017-06-10] MEDS: HEPARIN DRIP 25,000 UNITS in APPROPRIATE DILUENT 1 EA IV SCH (05:03)
[2017-06-10] MEDS: LEVOTHYROXINE 12.5MCG PER 1/2 TAB (0.0125MG) PO SCH (05:32)
[2017-06-10 06:00] VITALS: BP 126/87
[2017-06-10 07:11] LABS: MEAN CORPUSCULAR HEMOGLOBIN 30.7 pg (27.0-33.0); MEAN CORPUSCULAR HGB CONC 34.2 g/dl (32.0-36.5); MEAN CORPUSCULAR VOLUME 89.7 fl (80.0-96.0); PLATELET COUNT, AUTOMATED 345 10^3/uL (150-450); RED CELL DISTRIBUTION WIDTH 15.1 % (11.5-14.5); WHITE BLOOD COUNT 10.3 10^3/uL (4.0-10.0)
[2017-06-10 07:27] LABS: ANION GAP 9 MEQ/L (8-16); BLOOD UREA NITROGEN 13 MG/DL (7-18); CALCIUM LEVEL 8.6 MG/DL (8.8-10.2); CARBON DIOXIDE LEVEL 25 MEQ/L (21-32); CHLORIDE LEVEL 103 MEQ/L (98-107); CREATININE FOR GFR 0.38 MG/DL (0.55-1.02); GLOMERULAR FILTRATION RATE > 60.0 (>45); GLUCOSE, FASTING 105 MG/DL (80-110); MAGNESIUM LEVEL 1.5 MG/DL (1.8-2.4); POTASSIUM SERUM 3.6 MEQ/L (3.5-5.1); SODIUM LEVEL 137 MEQ/L (136-145)
[2017-06-10 08:00] VITALS: O2SAT 96
[2017-06-10] MEDS: DRONABINOL 2.5 MG CAP (MARINOL) PO SCH ×2 (08:12→17:41)
[2017-06-10] MEDS: ESCITALOPRAM OXALATE 10 MG TAB (LEXAPRO) PO SCH (08:13)
[2017-06-10] MEDS: CelecoXIB (CeleBREX) 100 MG CAP PO SCH ×2 (08:13→20:06)
[2017-06-10] MEDS: oxyCODONE 20 MG CR TAB PO SCH ×3 (08:13→20:08)
[2017-06-10] MEDS: MOM 30ML SUSPENSION UDC PO SCH (08:14)
[2017-06-10] MEDS: MIRALAX *UNIT DOSE* 17GM PACKET PO SCH (08:14)
[2017-06-10] MEDS: OMEPRAZOLE 20 MG CAP PO SCH (08:14)
[2017-06-10] MEDS: POTASSIUM CHLORIDE 10 MEQ SR TABLET PO SCH ×2 (08:14→20:07)
[2017-06-10] MEDS: SENOKOT S TAB PO SCH ×2 (08:15→19:00)
--- NOTE | 2017-06-10 08:42 | IPNPDOC ---
Subjective Date Seen The patient was seen on 06/10/17. Subjective Chief Complaint/HPI The patient is a 62-year-old female admitted with a reason for visit of Hip Fx. Events since last encounter Pain in hip as expected. No other complaints Constitutional: Denies: Chills, Fever Pulmonary: Denies: Dyspnea, Cough Cardiovascular: Denies: Chest Pain, Palpitations Gastrointestinal: Reports: Diarrhea (had some diarrhea this am), Denies: Nausea, Vomiting, Abdominal Pain, Constipation Musculoskeletal: Reports: Other Symptoms (hip pain post op) Objective Physical Examination General Exam: Positive: Alert, Cooperative, Mild Distress ENT Exam: Positive: Atraumatic Chest Exam: Positive: Clear to auscultation, Normal air movement Heart Exam: Positive: Rate Normal, Regular Rhythm, Normal S1, Normal S2, Negative: Murmurs Abdomen Exam: Positive: Soft, Negative: Tenderness Extremity Exam: Positive: Tenderness (right hip), Negative: Edema Skin Exam: Positive: Nl turgor and temperature, Negative: Rash Neuro Exam: Positive: Normal Speech, Cranial Nerves 3-12 NL Psych Exam: Positive: Oriented x 3 Assessment /Plan Problems (1) Pathologic fracture of neck of right femur Status: Acute Problem Text: 06/10 s/p right hemiarthroplasty yesterday by Dr. Michelle Start PT today Probably a good candidate for PMR, but patient is scheduled for next Ketruda infusion Thursday 06/14 in [place] and would like to get there for that PT will work with her over the next 4 days and plan for d/c Wednesday so she can get to [place] Wednesday. Has family support at home and will likely [facility] PT upon d/c (Ortho aware of goals) D/C heparin gtt today and restart Eliquis (Ortho ok with this and Pharmacy contacted regarding proper timing of restart - stop heparin at same time Eliquis dose is to be given Pain meds per ortho (2) Closed right hip fracture Status: Acute Discussed With: Rewrite Editor Problem Specific Plan: Consult Specialist Problem Text: 06/08 - cont current pain meds. plan surgery tomorrow (72 hours from stopping Eliquis) EKG on admission ST. 12 Ortho consulted, case discussed with Cortney Good. Patient's Eliquis was stopped upon admission, but she will not be able to have surgery until she has been off of Eliquis for 3 days - surgery will likely take placed on 06/09. - Pain management - patient is tolerant to opioids due to chronic opioids ( oxycontin 30 mg BID and morphine 30 mg 5 times daily as needed); dilaudid 1 mg Q3H is helping her pain but is wearing off to early. For now, I will increase her oxycontin dose to 40 mg BID and continue her dilaudid; we may need to change her to a CIGAR ROLLER if pain remains uncontrolled. (3) History of DVT (deep vein thrombosis) Status: Chronic Problem Text: 06/10 - Switch back to Eliquis today She was diagnosed with a DVT in 01/2017; Eliquis is currently be held for surgery - We may need to communicate with her Oncologist in [place] to determine best anticoagulant to be used post-op (4) Stage 4 malignant neoplasm of lung Status: Chronic Problem Text: Next Ketruda due 06/14 Completed course of RT Waiting for call back from Dr. Knox (her oncologist to discuss this further and discuss most effective anticoag) S/p Keytruda and palliative radiation to ribs for bone mets - Follows with Oncologist in [place] - Patient states her last PET scan looked "really good" and that her Oncologist told her she is doing "really well"; I am concerned that she has an overly optimistic view of her stage 4 lung cancer, particularly as she is now having fractures with minor activity due to bone mets (5) Chronic pain Status: Chronic Response to Treatment: Worse Problem Text: Increase oxycontin from 30 mg BID to 40 mg BID; she is managed by a pain specialist in [place] - Hold home PO morphine - Continue dilaudid - Pain consult placed Plan/VTE VTE Prophylaxis Ordered?: Yes (TEDS/SCDs) VS, I&O, 24H, Fishbone Vital Signs/I&O Vital Signs Date Time Temp Pulse Resp B/P (MAP) Pulse Ox O2 Delivery O2 Flow Rate FiO2 06/10/17 08:13 18 96 Room Air 06/10/17 06:00 98.5 117 126/87 (100) Laboratory Data 24H LABS Laboratory Tests 2 06/09/17 16:47: Nucleated Red Blood Cells % (auto) 0.0 06/10/17 06:35: Activated Partial Thromboplast Time 43.8H 06/10/17 06:36: Nucleated Red Blood Cells % (auto) 0.0, Anion Gap 9, Glomerular Filtration Rate > 60.0, Blood Urea Nitrogen 13, Creatinine 0.38L, Sodium Level 137, Potassium Level 3.6, Chloride Level 103, Carbon Dioxide Level 25, Calcium Level 8.6L, Magnesium Level 1.5L CBC/BMP Laboratory Tests 06/09/17 16:47 Red Blood Count 4.65, Mean Corpuscular Volume 92.7, Mean Corpuscular Hemoglobin 30.5, Mean Corpuscular Hemoglobin Concent 32.9, Red Cell Distribution Width 15.4 H 06/10/17 06:36 Red Blood Count 4.37, Mean Corpuscular Volume 89.7, Mean Corpuscular Hemoglobin 30.7, Mean Corpuscular Hemoglobin Concent 34.2, Red Cell Distribution Width 15.1 H, Calcium Level 8.6 L Microbiology Microbiology 06/07/17 Stool Occult Blood (DARCIE) - Final, Complete 06/07/17 Gastrointestinal Tract Panel (PCR) - Final, Complete 06/07/17 Stool Occult Blood (DARCIE) - Final, Complete ALBINA ALFORD PA-C Jun 10, 2017 08:42
[2017-06-10 10:00] VITALS: BP 113/66
[2017-06-10] MEDS: APIXABAN 5 MG TAB (ELIQUIS) PO SCH ×2 (10:05→20:07)
[2017-06-10 14:00] VITALS: BP 117/56
[2017-06-10 20:00] VITALS: O2SAT 94
[2017-06-10 22:00] VITALS: BP 111/69
[2017-06-11] MEDS: HYDROmorphone HCL 1 MG/ML SYRINGE (J1170) IV PRN ×6 (01:09→20:21)
[2017-06-11] MEDS: LEVOTHYROXINE 12.5MCG PER 1/2 TAB (0.0125MG) PO SCH (05:04)
[2017-06-11 06:00] VITALS: BP 122/74
[2017-06-11 07:15] LABS: MEAN CORPUSCULAR HEMOGLOBIN 30.4 pg (27.0-33.0); MEAN CORPUSCULAR HGB CONC 33.5 g/dl (32.0-36.5); MEAN CORPUSCULAR VOLUME 90.7 fl (80.0-96.0); PLATELET COUNT, AUTOMATED 370 10^3/uL (150-450); RED CELL DISTRIBUTION WIDTH 15.1 % (11.5-14.5); WHITE BLOOD COUNT 11.8 10^3/uL (4.0-10.0)
[2017-06-11 07:38] LABS: ANION GAP 7 MEQ/L (8-16); BLOOD UREA NITROGEN 9 MG/DL (7-18); CALCIUM LEVEL 9.1 MG/DL (8.8-10.2); CARBON DIOXIDE LEVEL 29 MEQ/L (21-32); CHLORIDE LEVEL 100 MEQ/L (98-107); CREATININE FOR GFR 0.48 MG/DL (0.55-1.02); GLOMERULAR FILTRATION RATE > 60.0 (>45); GLUCOSE, FASTING 102 MG/DL (80-110); MAGNESIUM LEVEL 1.8 MG/DL (1.8-2.4); POTASSIUM SERUM 3.8 MEQ/L (3.5-5.1); SODIUM LEVEL 136 MEQ/L (136-145)
[2017-06-11] MEDS: MIRALAX *UNIT DOSE* 17GM PACKET PO SCH ×2 (08:14→08:22)
[2017-06-11] MEDS: MOM 30ML SUSPENSION UDC PO SCH ×2 (08:14→08:22)
[2017-06-11] MEDS: DRONABINOL 2.5 MG CAP (MARINOL) PO SCH ×2 (08:15→17:02)
[2017-06-11] MEDS: OMEPRAZOLE 20 MG CAP PO SCH (08:15)
[2017-06-11] MEDS: CelecoXIB (CeleBREX) 100 MG CAP PO SCH (08:15)
[2017-06-11] MEDS: POTASSIUM CHLORIDE 10 MEQ SR TABLET PO SCH ×2 (08:15→20:21)
[2017-06-11] MEDS: SENOKOT S TAB PO SCH ×3 (08:16→20:36)
[2017-06-11] MEDS: oxyCODONE 20 MG CR TAB PO SCH ×3 (08:16→20:22)
[2017-06-11] MEDS: ESCITALOPRAM OXALATE 10 MG TAB (LEXAPRO) PO SCH (08:16)
[2017-06-11] MEDS: APIXABAN 5 MG TAB (ELIQUIS) PO SCH ×2 (08:16→20:20)
--- NOTE | 2017-06-11 08:41 | IPNPDOC ---
Subjective Date Seen The patient was seen on 06/11/17. Subjective Chief Complaint/HPI The patient is a 62-year-old female admitted with a reason for visit of Hip Fx. Events since last encounter Had trouble participating with PT yesterday due to pain but feels a little better today. No diarrhea since yesterday Constitutional: Denies: Chills, Fever Pulmonary: Denies: Dyspnea, Cough Cardiovascular: Denies: Chest Pain, Palpitations Gastrointestinal: Reports: Diarrhea, Denies: Nausea, Vomiting, Abdominal Pain, Constipation Objective Physical Examination General Exam: Positive: Alert, Cooperative, No Acute Distress ENT Exam: Positive: Atraumatic Chest Exam: Positive: Clear to auscultation, Normal air movement Heart Exam: Positive: Rate Normal, Regular Rhythm, Normal S1, Normal S2, Negative: Murmurs Abdomen Exam: Positive: Soft, Negative: Tenderness Extremity Exam: Positive: Tenderness (right hip), Negative: Edema Skin Exam: Positive: Nl turgor and temperature Neuro Exam: Positive: Normal Speech Assessment /Plan Problems (1) Pathologic fracture of neck of right femur Status: Acute Problem Text: 06/11 s/p right hemiarthroplasty 06/[address] Michelle Start PT today Probably a good candidate for PMR, but patient is scheduled for next Ketruda infusion Thursday 06/14 in [place] and would like to get there for that PT will work with her over the next 4 days and plan for d/c Wednesday so she can get to [place] Wednesday. Has family support at home and will likely [facility] PT upon d/c (Ortho aware of goals) (2) History of DVT (deep vein thrombosis) Status: Chronic Problem Text: 06/11 - Back on Eliquis now (3) Closed right hip fracture Status: Acute Discussed With: Inventory Audit Clerk Problem Specific Plan: Consult Specialist Problem Text: 06/08 - cont current pain meds. plan surgery tomorrow (72 hours from stopping Eliquis) EKG on admission ST. 06/06 Ortho consulted, case discussed with Cortney Good. Patient's Eliquis was stopped upon admission, but she will not be able to have surgery until she has been off of Eliquis for 3 days - surgery will likely take placed on 06/09. - Pain management - patient is tolerant to opioids due to chronic opioids ( oxycontin 30 mg BID and morphine 30 mg 5 times daily as needed); dilaudid 1 mg Q3H is helping her pain but is wearing off to early. 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 (4) Stage 4 malignant neoplasm of lung Status: Chronic Problem Text: Next Noble due 06/14 Completed course of RT Waiting for call back from Dr. Knox (her oncologist to discuss this further and discuss most effective anticoag) S/p Keytruda and palliative radiation to ribs for bone mets - Follows with Oncologist in [place] - Patient states her last PET scan looked "really good" and that her Oncologist told her she is doing "really well"; I am concerned that she has an overly optimistic view of her stage 4 lung cancer, particularly as she is now having fractures with minor activity due to bone mets (5) Chronic pain Status: Chronic Response to Treatment: Worse Problem Text: Increase oxycontin from 30 mg BID to 40 mg BID; she is managed by a pain specialist in [place] - Hold home PO morphine - Continue dilaudid - Pain consult placed Plan/VTE VTE Prophylaxis Ordered?: Yes (TEDS/SCDs) VS, I&O, 24H, Fishbone Vital Signs/I&O Vital Signs Date Time Temp Pulse Resp B/P (MAP) Pulse Ox O2 Delivery O2 Flow Rate FiO2 06/11/17 08:16 20 06/11/17 06:46 96 Room Air 06/11/17 06:00 96.3 103 122/74 (90) Laboratory Data 24H LABS Laboratory Tests 2 06/11/17 06:43: Nucleated Red Blood Cells % (auto) 0.0, Anion Gap 7L, Glomerular Filtration Rate > 60.0, Blood Urea Nitrogen 9, Creatinine 0.48L, Sodium Level 136, Potassium Level 3.8, Chloride Level 100, Carbon Dioxide Level 29, Calcium Level 9.1, Magnesium Level 1.8 CBC/BMP Laboratory Tests 06/11/17 06:43 Red Blood Count 4.41, Mean Corpuscular Volume 90.7, Mean Corpuscular Hemoglobin 30.4, Mean Corpuscular Hemoglobin Concent 33.5, Red Cell Distribution Width 15.1 H, Calcium Level 9.1 Microbiology Microbiology 06/07/17 Stool Occult Blood (DARCIE) - Final, Complete 06/07/17 Gastrointestinal Tract Panel (PCR) - Final, Complete 06/07/17 Stool Occult Blood (DARCIE) - Final, Complete ALBINA ALFORD PA-C Jun 11, 2017 08:41
--- NOTE | 2017-06-11 09:07 | RO ---
DATE OF PROCEDURE: 06/09/2017 PREPROCEDURE DIAGNOSIS: Right displaced femoral neck fracture. POSTPROCEDURE DIAGNOSIS: Right displaced femoral neck fracture. PROCEDURE: Right hip hemiarthroplasty. SURGEON: Crista Velez MD ACUTE CARE ASSISTANT: Mk Beverly MD SECOND ASSIST: Benito Arias MD ANESTHESIA: Spinal. SPECIMENS: Femoral head. ESTIMATED BLOOD LOSS: 75 mL. REPLACED: Femoral proximal femur. IMPLANTS: Kerr femoral stem size 5 with 46 mm head. INDICATIONS: Amber Neville is a 62-year-old female with stage IV lung cancer who had been noticing a pain in her right hip for some time. The patient went to bend over and felt a snap in her femur. She was seen in the emergency room at [facility] and found to have a displaced right femoral neck fracture. The patient has a history of deep vein thrombosis (DVT) and is on Eliquis. She was admitted to the hospital and surgery was delayed for greater than 72 hours given her history of Eliquis. PROCEDURE: The patient was met in the preoperative holding area where her right hip was marked as the correct operative site. Informed consent was obtained. She was taken to the operating room and underwent spinal anesthesia without difficulty. She was transferred to the operating room table in the lateral position. Her bony prominences were all padded. The right hip was prepped and draped in the normal sterile fashion. An official time out was held. An incision was marked out over the greater trochanter extending distally over the proximal femur and proximally to the level of the acetabulum. The incision was made with a 10 blade. Bovie was used for dissection down to the fascia. The fascia was incised. Crossing vessels were coagulated. The bursa was removed and the abductors were identified. The gluteus medius was reflected in a thick flap. The joint capsule was identified. The anterior joint capsule was also reflected in a thick flap. The femoral neck and head were exposed. There was found to be a displaced femoral neck fracture. The femoral neck was removed using a corkscrew. The acetabulum was cleaned of any debris and the ligamentum tares was excised. The femoral head measured 46 mm outer diameter. Irrigation was performed to the acetabulum. A canal finder was used to access the intermedullary canal of the femur. The lateralizer was also used to remove any extra bone on the lateral cortex. Femoral neck cut was made using a template. Broaching was commenced and a size 5 was found to be stable. The size 3 cement restrictor was then selected. The cement restrictor was placed and the femoral canal was cleaned of any debris using pulse lavage. Epinephrine soaked sponges were placed in the femoral canal. The cement was mixed for approximately 60 seconds and then after removing the sponges, placed into the femoral canal. A size 5 stem was placed matching the patient's natural version. It was held in place for approximately 50 minutes while the cement dried. After the cement was found to be dry, any remaining cement was removed and the hip was copiously irrigated. The hip was reduced and found to be stable in both adduction and 70 degrees of internal rotation. The abductors were repaired using #1 Vicryl. The fascia was closed using #0 Vicryl and the subcutaneous tissues were closed using #2-0 Vicryl. The skin was closed using DERMABOND and the Prineo dressing. The patient was transferred safely to the hospital bed. She was taken to the recovery room in stable condition. X-rays in the recovery room showed stable and satisfactory alignment of the right hip hemiarthroplasty. PLAN: The patient will be weightbearing as tolerated on her right lower extremity with precautions. She will go back on a heparin drip and Eliquis as directed by her medical team. She will start physical therapy and receive pain medications for pain control.
[2017-06-11] MEDS: ONDANSETRON 4MG/2ML VIAL (J2405) IV PRN (13:35)
[2017-06-11] MEDS: LOPERAMIDE 2 MG CAP PO PRN ×2 (13:35→17:02)
[2017-06-11 14:00] VITALS: BP 121/75
[2017-06-11 22:00] VITALS: BP 125/79
[2017-06-12] MEDS: HYDROmorphone HCL 1 MG/ML SYRINGE (J1170) IV PRN (03:54)
[2017-06-12] MEDS: LEVOTHYROXINE 12.5MCG PER 1/2 TAB (0.0125MG) PO SCH (05:20)
[2017-06-12 06:00] VITALS: BP 120/77
[2017-06-12 07:00] LABS: MEAN CORPUSCULAR HEMOGLOBIN 30.7 pg (27.0-33.0); MEAN CORPUSCULAR HGB CONC 33.5 g/dl (32.0-36.5); MEAN CORPUSCULAR VOLUME 91.5 fl (80.0-96.0); PLATELET COUNT, AUTOMATED 378 10^3/uL (150-450); RED CELL DISTRIBUTION WIDTH 15.1 % (11.5-14.5)
[2017-06-12 07:13] LABS: ANION GAP 9 MEQ/L (8-16); BLOOD UREA NITROGEN 11 MG/DL (7-18); CARBON DIOXIDE LEVEL 25 MEQ/L (21-32); CHLORIDE LEVEL 100 MEQ/L (98-107); CREATININE FOR GFR 0.43 MG/DL (0.55-1.02); GLOMERULAR FILTRATION RATE > 60.0 (>45); GLUCOSE, FASTING 105 MG/DL (80-110); MAGNESIUM LEVEL 1.6 MG/DL (1.8-2.4); SODIUM LEVEL 134 MEQ/L (136-145)
[2017-06-12] MEDS: DRONABINOL 2.5 MG CAP (MARINOL) PO SCH (07:30)
[2017-06-12] MEDS: APIXABAN 5 MG TAB (ELIQUIS) PO SCH (08:27)
[2017-06-12] MEDS: MIRALAX *UNIT DOSE* 17GM PACKET PO SCH (08:28)
[2017-06-12] MEDS: oxyCODONE 20 MG CR TAB PO SCH ×2 (08:28→13:24)
[2017-06-12] MEDS: POTASSIUM CHLORIDE 10 MEQ SR TABLET PO SCH (08:28)
[2017-06-12] MEDS: MOM 30ML SUSPENSION UDC PO SCH (08:28)
[2017-06-12] MEDS: ESCITALOPRAM OXALATE 10 MG TAB (LEXAPRO) PO SCH (08:28)
[2017-06-12] MEDS: LOPERAMIDE 2 MG CAP PO PRN (08:29)
[2017-06-12] MEDS: ONDANSETRON 4MG/2ML VIAL (J2405) IV PRN (08:30)
[2017-06-12] MEDS: SENOKOT S TAB PO SCH (08:50)
[2017-06-12] MEDS: OMEPRAZOLE 20 MG CAP PO SCH (08:50)
[2017-06-12 14:00] VITALS: BP 108/55
[2017-06-12] MEDS ORDERED: OXYC20TA40 PO ×2 (14:12)
--- NOTE | 2017-06-12 20:30 | DS.PDOC ---
Discharge Summary General Date of Admission Jun 06, 2017 at 04:24 Date of Discharge June 12, 2017 Primary Care Physician: JUAN GAMBOA MD Attending Physician: FEDERICO FARFAN DO Specialist/Consultants Involve: BRAYDON MCCAULEY MD Discharge Summary PROCEDURES PERFORMED DURING STAY: R hip hemiarthroplasty ADMITTING DIAGNOSES: 1. Acute right hip fracture 2. Stage IV lung cancer with metastases to the liver, spleen, bone 3. History of DVT (January 2017) 4. Chronic pain 5. Hypothyroidism 6. GERD 7. Depression DISCHARGE DIAGNOSES: 1. Pathologic fracture of neck of R femur 2. Stage IV lung cancer with metastases to the liver, spleen, bone 3. History of DVT (January 2017) 4. Chronic pain 5. Hypothyroidism 6. GERD 7. Depression COMPLICATIONS/CHIEF COMPLAINT: Hip Fx. HISTORY OF PRESENT ILLNESS: This is a 62-year-old female past medical history of lung cancer status post metastasis to liver, spleen, bone, with prior pathologic fractures of the ribs, history of DVT on Eliquis, depression, chronic pain on morphine presents complaining of right hip pain. The patient states she is able to walk minimally, and typically uses a cane. She was turning around when she heard a snap and fell to the floor. She had significant amount of pain in her right hip for which she came to the ED. In the ED, patient was noted to have a hip fracture, and ED consulted orthopedics. HOSPITAL COURSE: Patient was bridged with heparin until surgery. Pain management was consulted to help control her pain, and adjusted her medication regimen, with better control of her [id number] pain. She had R hip hemiarthroplasty 06/10, and was highly motivated with PT afterwards. She very badly wanted to make it to her appointment for Rahul on Wednesday, so she declined rehab and applied herself with PT. By the morning of 06/12 she was walking with a walker and able to navigate stairs. She has support from her daughter at home, and requested DC home. DISCHARGE MEDICATIONS: Please see below. ALLERGIES: Please see below. PHYSICAL EXAMINATION ON DISCHARGE: VITAL SIGNS: Please see below. GENERAL: NAD HEENT: MMM NECK: supple CARDIOVASCULAR EXAMINATION: regular, no murmurs, rubs, or gallops RESPIRATORY EXAMINATION: clear to auscultation bilat ABDOMINAL EXAMINATION: BS + soft, nontender, nondistended EXTREMITIES: incision intact and healing well R leg, no edema SKIN: surgical incision as above LABORATORY DATA: Please see below. IMAGING: X ray 06/06 showed R femoral neck frature. Pelvic X ray 06/09 showed Status post right hip arthroplasty with femoral head component well seated in the houlton acetabulum and with the femoral stem component tightly applied to the [place] femoral shaft. PROGNOSIS: poor, in the long-term ACTIVITY: with walker, as per PT DIET: regular DISCHARGE PLAN: home DISPOSITION: Home Health Service. DISCHARGE INSTRUCTIONS: 1. Take all medications as prescribed. 2. F/u with ortho and Dr. Gamboa 3. Contact the office with any concerns. ITEMS TO FOLLOWUP ON ON OUTPATIENT: 1. functioning at home ([facility] referral made) 2. overall prognosis (I requested her oncology records but was unable to obtain them. She seems to believe that she is doing great with oncology and chemo. She specifically said that she was not ready for oncology at this time.) DISCHARGE CONDITION: [Stable]. TIME SPENT ON DISCHARGE: Greater than minutes. Vital Signs/I&Os Vital Signs Date Time Temp Pulse Resp B/P (MAP) Pulse Ox O2 Delivery O2 Flow Rate FiO2 06/12/17 14:00 98.2 105 20 108/55 (72) 95 Room Air I&O- Last 24 Hours up to 6 AM 06/13/17 06:00 Intake Total 900 ml Output Total 0 ml Balance 900 ml Laboratory Data Labs 24H Laboratory Tests 2 06/12/17 06:35: Nucleated Red Blood Cells % (auto) 0.0, Anion Gap 9, Glomerular Filtration Rate > 60.0, Blood Urea Nitrogen 11, Creatinine 0.43L, Sodium Level 134L, Potassium Level 4.0, Chloride Level 100, Carbon Dioxide Level 25, Calcium Level 9.0, Magnesium Level 1.6L CBC/BMP Laboratory Tests 06/12/17 06:35 Red Blood Count 4.14, Mean Corpuscular Volume 91.5, Mean Corpuscular Hemoglobin 30.7, Mean Corpuscular Hemoglobin Concent 33.5, Red Cell Distribution Width 15.1 H, Calcium Level 9.0 Microbiology Microbiology 06/11/17 Stool Occult Blood (DARCIE) - Final, Complete 06/07/17 Stool Occult Blood (DARCIE) - Final, Complete 06/07/17 Gastrointestinal Tract Panel (PCR) - Final, Complete 06/07/17 Stool Occult Blood (DARCIE) - Final, Complete Discharge Medications Scheduled Apixaban Base (Eliquis) 5 Mg Tab, 5 MG PO BID, (Reported) Calcium/Vitamin D (Calcium 500 +D 500-400 mg-Unit) 1 Tab Tab, 1 TAB PO DAILY, ( Reported) Dronabinol (Dronabinol) 10 Mg Cap, 10 MG PO BID, (Reported) BEFORE MEALS Escitalopram Oxalate (Escitalopram Oxalate) 20 Mg Tab, 20 MG PO DAILY, (Reported ) Levothyroxine Sodium (Levo-T) 25 Mcg Tab, 12.5 MCG PO DAILY, (Reported) Omeprazole (Omeprazole) 40 Mg Cap, 40 MG PO DAILY, (Reported) Ondansetron (Zofran Odt) 8 Mg Tab, 8 MG PO DAILY, (Reported) Oxycodone HCl (Oxycontin) 20 Mg Tab, 20 MG PO DAILY@1200 Oxycodone HCl (Oxycontin) 20 Mg Tab, 40 MG PO BID Potassium Chloride (Potassium Chloride Cr) 20 Meq Tab, 20 MEQ PO BID, (Reported) Scheduled PRN Lorazepam (Lorazepam) 0.5 Mg Tab, 0.5 MG PO Q8H PRN for ANXIETY, (Reported) Ondansetron (Zofran Odt) 8 Mg Tab, 8 MG PO Q8H PRN for NAUSEA OR VOMITING, ( Reported) Trazodone HCl (Trazodone HCl) 50 Mg Tab, 50 MG PO QHS PRN for INSOMNIA, ( Reported) Allergies Coded Allergies: Levofloxacin (Verified Allergy, Severe, AIRWAY CLOSES, 02/01/17) Penicillins (Verified Allergy, Severe, AIRWAY CLOSES, 02/01/17) FEDERICO FARFAN DO Jun 12, 2017 20:30
== END 2017-06-12 14:42 | disposition home health service (06) | DRG 301 ==
LOC: EDBD 00:58 → M ED 00:58 → M ED INP 04:24 → M PCU 07:29 → M MSPAV 15:21 → M MS5PR 06-09 13:08
PROVIDERS: ADMIT Internal Medicine; ATTEND Family Medicine
PROC: 0SRR019 Replacement of Right Hip Joint, Femoral Surface with Metal Synthetic Substitute, Cemented, Open Approach (ICD-10-PCS; principal; 2017-06-09 12:30)
DX: M84.559A Pathological fracture in neoplastic disease, hip, unspecified, initial encounter for fracture (principal); C78.7 Secondary malignant neoplasm of liver and intrahepatic bile duct; C79.51 Secondary malignant neoplasm of bone; C78.89 Secondary malignant neoplasm of other digestive organs; C34.90 Malignant neoplasm of unspecified part of unspecified bronchus or lung; F17.210 Nicotine dependence, cigarettes, uncomplicated; F32.9 Major depressive disorder, single episode, unspecified; E03.9 Hypothyroidism, unspecified; K21.9 Gastro-esophageal reflux disease without esophagitis; G89.3 Neoplasm related pain (acute) (chronic); Z86.718 Personal history of other venous thrombosis and embolism; Z90.49 Acquired absence of other specified parts of digestive tract; Z90.710 Acquired absence of both cervix and uterus; Z92.3 Personal history of irradiation; Z92.21 Personal history of antineoplastic chemotherapy; Z79.01 Long term (current) use of anticoagulants; Z79.899 Other long term (current) drug therapy; Z88.0 Allergy status to penicillin; Z88.1 Allergy status to other antibiotic agents; Z79.891 Long term (current) use of opiate analgesic

== ENCOUNTER → 2017-07-02 | Outpatient (CLI) | payer BC, OTHER | LOC: M RAD 15:14 | DX: Z47.89 Encounter for other orthopedic aftercare (principal) | CPT/HCPCS: 93971 ==

== ENCOUNTER → 2018-05-03 | Outpatient (CLI) | payer BC, OTHER | LOC: M ONCR 13:57 | DX: C34.92 Malignant neoplasm of unspecified part of left bronchus or lung (principal); C79.51 Secondary malignant neoplasm of bone | CPT/HCPCS: G0463 ==

== ENCOUNTER 2018-05-06 13:21 | Outpatient (RCR) | payer BC, OTHER | END 2018-06-03 | LOC: M ONCR 13:21 | DX: C34.32 Malignant neoplasm of lower lobe, left bronchus or lung (principal); C79.51 Secondary malignant neoplasm of bone | CPT/HCPCS: 77300 ==

== ENCOUNTER → 2018-05-06 | Outpatient (CLI) | payer BC, OTHER ==
[2018-05-06 14:24] LABS: HEMATOCRIT 45.9 % (36.0-47.0); HEMOGLOBIN 15.3 g/dl (12.0-15.5); MEAN CORPUSCULAR HEMOGLOBIN 30.8 pg (27.0-33.0); MEAN CORPUSCULAR HGB CONC 33.3 g/dl (32.0-36.5); MEAN CORPUSCULAR VOLUME 92.4 fl (80.0-96.0); PLATELET COUNT, AUTOMATED 333 10^3/uL (150-450); RED BLOOD COUNT 4.97 10^6/uL (4.00-5.40)
== END ==
LOC: M CARPUL 11:21
DX: C34.90 Malignant neoplasm of unspecified part of unspecified bronchus or lung (principal)
CPT/HCPCS: 94060

== ENCOUNTER → 2018-05-06 | Outpatient (CLI) | payer BC, OTHER | LOC: M RAD 11:23 | DX: C34.90 Malignant neoplasm of unspecified part of unspecified bronchus or lung (principal) | CPT/HCPCS: 71046 ==

== ENCOUNTER → 2018-06-22 | Outpatient (CLI) | payer BC, OTHER ==
[~2018-06-22] MED LIST changes: +CALCTAB75 PO; +DRON1CAP3 PO; +ESCI20TA PO; +LEVO30TA PO; +LORA0.5T11 PO; +MSIR30TA PO; +NAPR-885 PO; -NAPR500T3 PO; +OXYC20TA40 PO; +OXYC30TA72 PO; +POTA20TA4 PO; +TRAZ-160 PO; +ZOFR8TAB22 PO
--- NOTE | 2018-06-23 13:15 | RADONC ---
RADIATION ONCOLOGY TREATMENT SUMMARY DATE: 05/25/2018 CHART NUMBER: [id number] DIAGNOSIS: Lung cancer. STAGE: IV, [id number]. ECOG PERFORMANCE STATUS: 0 TREATMENT SUMMARY: Ms. Neville is a 63-year-old white female with the diagnosis of metastatic lung cancer who presented to us for consideration of palliative radiation therapy for mediastinal and hilar disease. We treated the patient to her bronchial hilar regions for a dose of 3000 cGy delivered in 10 fractions of 300 cGy each over 13 elapsed days from 05/12/2018 through 05/25/2018. The patient was treated on the linear accelerator utilizing a 15 MV photon beam via 3D conformal technique with anterior and posterior parallel opposed patel. Ms. Neville tolerated her treatments quite well with no difficulties related to her radiation therapy. She is scheduled see me again in 1 month for further followup. She will continue to be followed by her other physicians as well. cc: MD Janey Simons MD
--- NOTE | 2018-06-23 13:29 | RADONC ---
RADIATION ONCOLOGY FOLLOWUP NOTE DATE: 06/22/2018 CHART NUMBER: [id number] DIAGNOSIS: Lung cancer. STAGE: IV, T4,N3,M1b. ECOG PERFORMANCE STATUS: Zero. FOLLOWUP NOTE: Ms. Neville is a very pleasant, 63-year-old white female with the diagnosis of metastatic lung carcinoma who is presenting to us today for routine followup visit 1 month post completion of mediastinal and hilar radiation. The patient presents today reporting that generally she is swallowing better and breathing without difficulty. She initially had some discomfort upon swallowing and the feeling like food would get stuck, but that has now largely improved and almost resolved. REVIEW OF SYSTEMS: The patient's review of systems is positive for still some slight catching of food in her throat, but is otherwise noncontributory. The patient's review of systems is noncontributory. Denies nausea, vomiting, fevers, chills, night sweats, diplopia, headaches, anxiety or depression, anorexia, weight loss, visual disturbances, chest pain, urinary or bowel difficulties, bone pain, or neurological problems. PHYSICAL EXAMINATION: The patient is a well-developed, well-nourished, 63-year-old white female, in no acute distress. HEENT exam is normocephalic, atraumatic. Extraocular movements are intact. There is no palpable cervical, supraclavicular, infraclavicular, axillary, or inguinal lymphadenopathy present. Lungs are clear to auscultation and percussion. Heart has a regular rate and rhythm. Abdomen is benign with no hepatosplenomegaly, masses, or tenderness. Skeletal examination reveals no tenderness to pressure or percussion of the bony skeleton. Extremities reveal no clubbing, cyanosis, or edema. Neurologic exam is grossly intact, as is the remainder of the physical examination. ASSESSMENT: The patient is clinically doing quite well at this time. She is seeing Dr. Khalil every 3 weeks and undergoing Keytruda treatments. She is scheduled to see Dr. Khalil again next week. In light of her close followup and management by her medical oncologist, I am discharging her from our followup except on a p.r.n. basis. I let the patient know we are available to her anytime if we could be of any assistance whatsoever. cc: MD Janey Simons MD
== END ==
LOC: M ONCR 11:11
PROVIDERS: ATTEND Radiology Radiation Oncology
DX: C34.32 Malignant neoplasm of lower lobe, left bronchus or lung (principal); C79.51 Secondary malignant neoplasm of bone

== ENCOUNTER → 2019-05-18 | Outpatient (CLI) | payer BC, OTHER ==
[~2019-05-18] MED LIST changes: -OMEP40CA2 PO; +OMEP40CA97 PO; -TRAZ-160 PO; +TRAZ-252 PO
--- NOTE | 2019-05-18 13:12 | REPMRS ---
Patient History The patient states she had a clinical breast exam in 2018. Patient is postmenopausal, had previous chemotherapy at age 64, had previous chest radiation therapy at age 61, and has history of lung cancer at age 61, patient was diagnosed with lymphoma 2 months ago. Family history of unknown cancer at age 55 in father, unknown cancer at age 40 in sister, unknown cancer at age 53 in brother, colorectal cancer at age 70 in paternal grandfather, unknown cancer at age 68 in maternal grandmother, unknown cancer at age 58 in paternal uncle. Took estrogen for 36 years. Patient has lost 80 lbs since her last mammo due to illness Digital Mammo Diagnostic Bilateral: May 18, 2019 - Exam #: [id number] Bilateral CC and MLO view(s) were taken. Technologist: Madhuri Buckleyologist Prior study comparison: September 15, 2016, digital woman screen mammo, performed at [facility]. December 18, 2013, digital mammo diagnostic bilateral performed at [facility]. November 22, 2012, bilateral bilat screen digital mammo, performed at [facility] ([facility] FINDINGS: There are scattered fibroglandular densities. There has been no change in the appearance of the mammogram from the prior studies. There is a mild amount of scattered fibroglandular density which is fairly symmetric. There is no interval development of dominant mass, architectural distortion, or grouped microcalcification suggestive of malignancy. 3-D tomosynthesis shows no additional findings. Assessment: BI-RADS/ACR category 1 mammogram. Negative Mammogram. Recommendation Routine screening mammogram of both breasts in 1 year (for women over age 40). This patient's Lifetime Breast Cancer Risk is estimated at 2.5 %. This mammogram was interpreted with the aid of an FDA-approved computer-aided dectection system. Electronically Signed By: Janusz Shipley MD 05/18/19 0160
== END ==
LOC: M RAD 12:18
PROVIDERS: ATTEND Nurse Practitioner Adult Health
DX: Z12.31 Encounter for screening mammogram for malignant neoplasm of breast (principal); Z92.21 Personal history of antineoplastic chemotherapy; Z92.3 Personal history of irradiation
CPT/HCPCS: 77066; G0279

== ENCOUNTER 2019-07-23 15:25 | Emergency (ER) | payer MEDICARE, BC, OTHER ==
[~2019-07-23] VITALS: Ht 167.6 cm; Wt 63.6 kg
[~2019-07-23 15:25] MED LIST changes: -LORA0.5T11 PO; +LORA0.5T5 PO
[2019-07-23] MEDS ORDERED: OXYC1CAP PO (15:56)
[2019-07-23] MEDS ORDERED: FOLI1TAB11 (15:56)
[2019-07-23] MEDS ORDERED: LIDO2.5C15 (15:56)
[2019-07-23 16:24] LABS: EOS # 0.2 10^3/uL (0.0-0.5); EOS % 5.9 % (0.0-3.0); HEMATOCRIT 27.1 % (36.0-47.0); HEMOGLOBIN 9.1 g/dl (12.0-15.5); LYMPH % 25.5 % (24.0-44.0); MEAN CORPUSCULAR HGB CONC 33.6 g/dl (32.0-36.5); MEAN CORPUSCULAR VOLUME 95.4 fl (80.0-96.0); MONO # 0.8 10^3/uL (0.0-0.8); MONO % 19.9 % (0.0-5.0); NEUTROPHILS # 1.8 10^3/uL (1.5-8.5); NEUTROPHILS % 48.4 % (36.0-66.0); PLATELET COUNT, AUTOMATED 106 10^3/uL (150-450); RED BLOOD COUNT 2.84 10^6/uL (4.00-5.40); WHITE BLOOD COUNT 3.8 10^3/uL (4.0-10.0)
[2019-07-23] MEDS ORDERED: IPRATROPIUM 0.5MG/ALBUTEROL 2.5MG INH SOL UD 3ML (DUONEB)(J7620) NEB ONE (16:45)
[2019-07-23 16:53] LABS: ALBUMIN 2.9 GM/DL (3.2-5.2); ALT/SGPT 16 U/L (12-78); BILIRUBIN,DIRECT 0.1 MG/DL (0.0-0.2); BILIRUBIN,TOTAL 0.4 MG/DL (0.2-1.0); BLOOD UREA NITROGEN 11 MG/DL (7-18); CALCIUM LEVEL 8.2 MG/DL (8.8-10.2); CARBON DIOXIDE LEVEL 27 MEQ/L (21-32); CHLORIDE LEVEL 103 MEQ/L (98-107); CK-MB VALUE MASS < 1.0 NG/ML (<3.6); CPK CREATINE PHOSPHOKINASE 65 U/L (26-192); CREATININE FOR GFR 0.58 MG/DL (0.55-1.30); GLOMERULAR FILTRATION RATE > 60.0 (>45); GLUCOSE, FASTING 88 MG/DL (70-100); MB/CK RELATIVE INDEX 1.54 (< OR =4); NT-PRO BNP 901 PG/ML (<125); POTASSIUM SERUM 3.8 MEQ/L (3.5-5.1); SODIUM LEVEL 137 MEQ/L (136-145); TOTAL PROTEIN 6.5 GM/DL (6.4-8.2); TROPONIN I < 0.02 NG/ML (< 0.10)
[2019-07-23] MEDS ORDERED: ISOVUE-370 76% 100ML VIAL (Q9967) As Ordered ONE (17:30)
--- NOTE | 2019-07-23 18:41 | REPVR ---
PROCEDURE INFORMATION: Exam: CT Angiography Chest With Contrast Exam date and time: 07/23/2019 5:37 PM Age: 64 years old Clinical indication: Shortness of breath; Additional info: SOB, HX lung CA TECHNIQUE: Imaging protocol: Computed tomographic angiography of the chest with intravenous contrast. 3D rendering: MIP and/or 3D reconstructed images were created by the technologist. Radiation optimization: All CT scans at this facility use at least one of these dose optimization techniques: automated exposure control; mA and/or kV adjustment per patient size (includes targeted exams where dose is matched to clinical indication); or iterative reconstruction. Contrast material: ISOVUE 370; Contrast volume: 100 ml; Contrast route: IV; COMPARISON: CT ANGIO CHEST 2016-11-12 00:12 FINDINGS: Pulmonary arteries: Normal. No pulmonary emboli. Aorta: Unremarkable. No aortic aneurysm. No aortic dissection. Superior vena cava: Right IJ central line tip in the mid to low SVC. Lungs: Moderate centrilobular emphysema. Minimal patchy groundglass opacities in the left lower lobe. Partially calcified similar size but subjectively smaller lobulated right lower lobe 1.5 cm nodule, previously 1.5 cm, with pleural tags and spiculation, suspicious. Left lower lobe 8mm nodule on series 401 image 93. Spiculated left lower lobe 13 mm nodule, previously 12 mm. Scattered mild peribronchial opacities. Bronchial wall thickening. Pleural space: Unremarkable. No pneumothorax. No pleural effusion. Heart: Unremarkable. No cardiomegaly. No pericardial effusion. Mediastinum: Mediastinal and hilar soft tissue thickening with subtle areas of calcifications. Liver: Enhancing right posterior hepatic lobe 12 mm nodule is unchanged in size and indeterminate. Adrenals: Unchanged thickened nodular adrenal glands. Lymph nodes: Unchanged enhancing subcarinal lymph node measuring 1 cm. Bones/joints: Previous right posterior thoracotomy rib fractures. T10 and T11 chronic compression fractures. Soft tissues: There is a 1.6 x 1.2 cm in diameter subcutaneous soft tissue nodule adjacent to the left latissimus dorsi muscle. It previously measured 1.8 x 1.6 cm. IMPRESSION: 1. No pulmonary emboli. 2. Scattered mild infectious and inflammatory peripheral lung opacities, similar to the comparison study with associated bronchial wall thickening. 3. Left lower lobe spiculated nodule unchanged. 4. Right lower lobe partially calcified lobulated nodule appears marginally smaller. 5. Similar-appearing mediastinal and hilar adenopathy and soft tissue thickening. 6. Unchanged early enhancing right hepatic lobe lesion. Electronically signed by: Mckay Rand On 07/23/2019 18:40:45 PM
[2019-07-23 19:17] VITALS: O2SAT 98
[2019-07-23] MEDS ORDERED: IPRA0.00 NEB (19:26)
[2019-07-23] MEDS ORDERED: ALBU83IN NEB (19:26)
[2019-07-23 19:45] VITALS: BP 111/62
--- NOTE | 2019-07-24 07:11 | REP ---
Chest x-ray: Portable exam single view. History: Dyspnea and cough. Comparison study: May 06, 2018. Findings: There is a right-sided Dggmfp-[id number]-Owfq catheter again noted. Heart is not enlarged. The lungs are symmetrically aerated. No new infiltrate is seen. There is a nodular opacity again noted in the right infrahilar region. This measures 1.7 cm in greatest diameter today. It was visible previously. No new nodule is appreciated. Lung patel are otherwise clear. The pleural angles are sharp. No significant bony abnormality is seen. Impression: Right base nodule again noted. Otherwise no acute disease. Right-sided Tiuxsl-H-Ebdx catheter noted. Electronically Signed by Toño Shipley MD 07/24/2019 07:47 A
--- NOTE | 2019-07-25 05:59 | ECGEPIP ---
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
== END 2019-07-23 19:46 | disposition home or self-care (01) ==
LOC: M ED 15:25
DX: R06.02 Shortness of breath (principal); R05 Cough; C34.90 Malignant neoplasm of unspecified part of unspecified bronchus or lung; C85.90 Non-Hodgkin lymphoma, unspecified, unspecified site; E03.9 Hypothyroidism, unspecified; Z79.01 Long term (current) use of anticoagulants; Z88.0 Allergy status to penicillin; Z88.1 Allergy status to other antibiotic agents; F17.210 Nicotine dependence, cigarettes, uncomplicated
CPT/HCPCS: 36415; 71045; 71275; 80048; 80076; 82550; 82553; 83605; 83880; 84443; 84484; 85025; 85379; 87040; 87486; 87581; 87633; 87798; 93005; 93041; 94640; 94760; 99285; Q9967

== ENCOUNTER → 2019-07-28 | Outpatient (CLI) | payer MEDICARE, BC, OTHER ==
[~2019-07-28] MED LIST changes: +ALBU83IN NEB; +FOLI1TAB11; +GASTROGRAFIN SOLUTION 30ML (Q9963) As Ordered ONE; +IPRA0.00 NEB; +ISOVUE-370 76% 100ML VIAL (Q9967) As Ordered ONE; +LIDO2.5C15; +OXYC1CAP PO
--- NOTE | 2019-07-28 19:15 | REP ---
CT of the chest with IV contrast for adenocarcinoma of the lung. Follow-up: Comparisons are outside study from [facility] dated 12/27/2018 and our prior study of 07/23/2019. There is a punctate 2 mm nodule in the left apex laterally, unchanged. There is a 10 mm poorly defined nodule posteriorly in the left lower lobe on image 50, not present on 12/27/2018 but unchanged from 07/23/2019. There is pleural based linear stranding posteriorly in the right upper lobe posteriorly , unchanged, compatible with scarring. Inferior to this posteriorly in the superior segment of the right lower lobe, there is stranding and parenchymal density adjacent to rib deformities, likely postsurgical. This is unchanged. There is a nodule containing calcifications posterolaterally in the right lower lobe on image 62, unchanged, measuring 16 mm in diameter. There is a small curvilinear scar in the deep posterior sulcus of the right lung, unchanged. There is ill-defined density throughout the mesenteric fat, unchanged. This may be post radiation change. There are punctate calcifications within this mesenteric fat, nonspecific, calcified granulomas versus post-treatment calcification. These are unchanged. There is mild bilateral hilar adenopathy , unchanged. There is no axillary adenopathy. The thoracic aorta is unremarkable. Cardiac size is normal. There is no pericardial effusion. There are chronic compression deformities of the T8, T10 and T11 vertebral bodies, unchanged. There is retropulsion at the T10 vertebral body. This is unchanged. Impression: There is a new poorly defined 10 mm nodule posteriorly in the left lower lobe on image 50. There is no other interval change. Electronically Signed by Moy Acharya MD 07/28/2019 07:07 P
--- NOTE | 2019-07-28 19:46 | REP ---
CT of the abdomen and pelvis with IV and oral contrast: Comparison is an outside film from [facility] dated 01/03/2018. The study is performed contiguously with the chest CT this same date. Please refer to the chest CT for findings in the lower lung patel. There are surgical clips in the gallbladder fossa. There is intrahepatic and extrahepatic biliary dilatation. This was also present previously. The common biliary duct measures 12 mm in diameter. This measured 16 mm previously. There are no hepatic nodules or masses. There is no pancreatic head enlargement. The body and tail of the pancreas are unremarkable. There is a focal hypodensity in the spleen measuring 13 mm, not significantly changed, not clearly a cyst by CT density. The spleen is otherwise unremarkable. There is a 1.7 cm gastrohepatic ligament node, unchanged. There is a 1.7 cm left adrenal nodule. This is unchanged. The right adrenal is unremarkable. There is a 8 ml hypodense lesion at the mid pole of the left kidney, unchanged, likely a cortical cyst. The kidneys are otherwise unremarkable. The transverse duodenum is unchanged and has findings compatible with SMA syndrome in the appropriate clinical setting. The abdominal aorta is unremarkable. There is no periaortic/retroperitoneal adenopathy or mass. There is calcified atheroma. The bowel and mesentery are otherwise unremarkable. There is a tiny fat containing umbilical hernia, unchanged. Pelvis: There is a right hip arthroplasty with beam-hardening artifact degrading the images in the inferior pelvis. No definite pelvic adenopathy or ascites are identified. Pelvic bowel loops are unremarkable. The There are no lytic, blastic or destructive skeletal changes. The. There is degenerative disc disease in the lumbar spine. There are compression deformities of vertebral bodies in the thoracic spine as described on the chest CT. Impression: There is no significant interval change. There is no new adenopathy or mass. There is an enlarged gastrohepatic ligament node, unchanged in size. There is a 1.7 cm left adrenal nodule, unchanged in size. Common biliary duct dilatation, however, decreased from the prior study . Electronically Signed by Moy Acharya MD 07/28/2019 07:37 P
== END ==
LOC: M RAD 15:03
PROVIDERS: ATTEND Internal Medicine Hematology & Oncology
DX: C34.90 Malignant neoplasm of unspecified part of unspecified bronchus or lung (principal); D35.02 Benign neoplasm of left adrenal gland
CPT/HCPCS: 71260; 74177; Q9963; Q9967

== ENCOUNTER → 2019-11-09 | Outpatient (CLI) | payer MEDICARE, BC, OTHER ==
[~2019-11-09] MED LIST changes: -ISOVUE-370 76% 100ML VIAL (Q9967) As Ordered ONE; +ISOVUE-370 76% 100ML VIAL As Ordered ONE
--- NOTE | 2019-11-09 16:01 | REP ---
SOFT-TISSUE CT STUDY OF THE NECK WITH IV CONTRAST: HISTORY: Follow up lung carcinoma. Follicular lymphoma. Comparison is made with imaging from PET/CT study dated March 14, 2019. CT CONTRAST DOSE: 100 mL of intravenous Isovue [address] FINDINGS: There is no evidence of intraorbital mass. There is a small quantity of fluid and one of the posterior ethmoid air cells on the right. Otherwise, the paranasal sinuses are clear as visualized. The parotid and submandibular glands are normal and symmetric. There is an enlarged lymph node in the left submental region. This measures 1.0 x 1.5 x 1.1 cm in diameter. This appears to be slightly larger although it is not new when compared with the March 14, 2019 prior PET/CT images. There are small subcentimeter normal-appearing lymph nodes in the anterior cervical chain. There is a superficial posterior cervical lymph node measuring only 3 mm in short axis dimension on the right. There is a lymph node along the posterior margin of the sternocleidomastoid on the left at the level of the mandibular angle which measures only 4 mm in short axis dimension. These lymph nodes were areas of visually increased activity on the images provided from the PET/CT study. They are unchanged except for the left submandibular node. There is a right-sided Idjrsn-P-Qpky catheter. No other neck mass or adenopathy is seen. Thyroid lobes are normal and symmetric. No airway lesion is seen. IMPRESSION: Mildly enlarged left submental lymph node slightly more prominent than at the time of the March 14, 2019 PET/CT. No other evidence of adenopathy is seen by CT criteria. Mucosal thickening in the right side of one of the ethmoid air cells. Otherwise negative. Electronically Signed by Toño Shipley MD 11/09/2019 04:15 P
--- NOTE | 2019-11-09 16:10 | REP ---
CT CHEST WITH IV CONTRAST: TECHNIQUE: Axial contrast enhanced images from the thoracic inlet to the upper abdomen using 100 mL Isovue-370 intravenous contrast material with multiplanar reformations. COMPARISON: 07/28/2019 The irregular nodule in the right lower lobe measuring 1.4 cm in diameter with adjacent mild pleural thickening is unchanged. Posteriorly, in the left lower lobe, there is an ill-defined band of opacity which is not definitely mass-like. It has a diameter of about 1.5 cm. It may represent focal infiltrate or fibrosis. It has mildly increased since the prior study. Just inferior to that, there is a small spiculated nodular opacity more centrally which appears mildly decreased in size measuring 10 x 8 mm. Otherwise, there are diffuse interstitial fibrotic changes and scattered areas of mild pleural thickening bilaterally. There are stable partially calcified lymph nodes in the mediastinum. There is a right central venous catheter. The heart is normal in size. Thoracic aorta is normal in caliber with mild atherosclerotic calcification. There is no pleural or pericardial effusion. There is compression of two adjacent thoracic vertebral bodies with underlying diffuse sclerosis in these vertebral bodies, T10 and T11. These findings in T10 and T11 are unchanged. IMPRESSION: No change in small partially calcified lymph nodes in the mediastinum as well as the irregular nodule in the right lower lobe. A small spiculated nodular density in the left lower lobe has slightly decreased in size measuring 10 x 8 mm. Just superior to that level, in the posterior aspect of the left lower lobe, there is an ill-defined band of density which may represent focal fibrosis or infiltrate measuring about 15 mm in diameter. This has mildly increased since the prior study. Stable sclerotic appearance and compression of T10 and T11 vertebral bodies. Electronically Signed by Moy Bennett MD 11/09/2019 04:21 P
--- NOTE | 2019-11-09 16:17 | REP ---
CT ABDOMEN AND PELVIS WITH ORAL AND IV CONTRAST: TECHNIQUE: Axial contrast enhanced images from the lung bases to the pubic symphysis using 100 mL Isovue-370 intravenous contrast material with multiplanar reformations. COMPARISON: 07/28/2019 The liver demonstrates no mass. The patient has had a prior cholecystectomy. There is mild intrahepatic and extrahepatic biliary dilatation, which is stable. Spleen is normal in size. There is a stable peripheral hypodensity in the subcapsular region laterally. The left adrenal gland demonstrates a stable nodule. Right adrenal gland is normal. Pancreas demonstrates no mass. The kidneys demonstrate no mass or hydronephrosis. There is moderate atherosclerotic calcifications of the abdominal aorta with no aneurysm. There is no adenopathy. There is no free air or free fluid. There is no bowel wall thickening. The appendix is normal. There is a right metallic hip prosthesis which causes adjacent surrounding streak artifact and somewhat limits evaluation of right pelvic structures. There are degenerative changes of the spine. IMPRESSION: No change since the prior study. No new mass or adenopathy. Stable left adrenal nodule likely representing an adenoma. Prominent biliary system status post cholecystectomy. Electronically Signed by Moy Bennett MD 11/09/2019 04:21 P
== END ==
LOC: M RAD 13:02
PROVIDERS: ATTEND Internal Medicine Hematology & Oncology
DX: R59.0 Localized enlarged lymph nodes (principal); C34.90 Malignant neoplasm of unspecified part of unspecified bronchus or lung; C83.31 Diffuse large B-cell lymphoma, lymph nodes of head, face, and neck
CPT/HCPCS: 70491; 71260; 74177; Q9963; Q9967

== ENCOUNTER → 2020-03-20 | Outpatient (CLI) | payer MEDICARE, BC, OTHER ==
[~2020-03-20] MED LIST changes: +COMBAER6 INH; -GASTROGRAFIN SOLUTION 30ML (Q9963) As Ordered ONE; -ISOVUE-370 76% 100ML VIAL As Ordered ONE; +MOME0.1C3 TOP; +MUCI600T31 PO; +OXYC10TA12; +OXYC60TA8; +PRED10TA2 PO; +PROAAER10; +PROHANCE 279.3MG/ML 15ML VIAL As Ordered ONE
--- NOTE | 2020-03-20 13:13 | REPVR ---
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 Contrast material: PROHANCE; Contrast volume: 12 ml; Contrast route: INTRAVENOUS (IV); COMPARISON: CR Spine, Thoracic 3 VIEWS 12/21/2013 8:25 PM FINDINGS: Vertebrae: There is accentuation of the thoracic kyphosis distally. There is focal central endplate depression at T8 with mild to moderate loss of height centrally. There is a severe T10 vertebral body fracture with a vertebra plana configuration and approximately 3 mm of retropulsion posterior margin into the canal. There is associated diffuse marrow infiltration with areas of patchy enhancement, compatible with pathologic fracture. There are osseous metastases at T11 mild superior endplate depression. Spinal cord: The thoracic cord is of normal contour and signal properties. Discs/Spinal canal/Neural foramina: At T10/11 level, retropulsion indents the thecal sac asymmetric to the right. There is moderate right lateral recess stenosis. There is mild facet hypertrophy. There is severe right neural foraminal narrowing. Soft tissues: Unremarkable. IMPRESSION: 1. Suspected severe T10 pathologic fracture with retropulsion. Changes contribute to severe right neural foraminal narrowing and moderate right lateral recess stenosis. Additional osseous metastases suspected at T11 with superior endplate depression. Electronically signed by: Connie Valiente On 03/20/2020 13:13:18 PM
== END ==
LOC: M RAD 11:12
PROVIDERS: ATTEND Internal Medicine Hematology & Oncology
DX: C34.90 Malignant neoplasm of unspecified part of unspecified bronchus or lung (principal); M48.04 Spinal stenosis, thoracic region
CPT/HCPCS: 72157; A9576

== ENCOUNTER 2020-03-21 13:46 | Emergency (ER) | payer MEDICARE, BC, OTHER ==
[~2020-03-21] VITALS: Ht 165.1 cm; Wt 63.7 kg
[~2020-03-21 13:46] MED LIST changes: -COMBAER6 INH; -MOME0.1C3 TOP; -MUCI600T31 PO; -OXYC10TA12; -OXYC60TA8; -PRED10TA2 PO; -PROAAER10; -PROHANCE 279.3MG/ML 15ML VIAL As Ordered ONE
[2020-03-21] MEDS ORDERED: PROAAER10 (13:56)
[2020-03-21] MEDS ORDERED: OXYC60TA8 (13:56)
[2020-03-21] MEDS ORDERED: OXYC10TA12 (13:56)
[2020-03-21 14:27] LABS: BASO % 0.1 % (0.0-1.0); EOS # 0.2 10^3/uL (0.0-0.5); EOS % 2.2 % (0.0-3.0); HEMATOCRIT 35.8 % (36.0-47.0); HEMOGLOBIN 11.6 g/dl (12.0-15.5); LYMPH # 1.1 10^3/uL (1.5-5.0); LYMPH % 13.6 % (24.0-44.0); MEAN CORPUSCULAR HEMOGLOBIN 32.3 pg (27.0-33.0); MEAN CORPUSCULAR HGB CONC 32.4 g/dl (32.0-36.5); MEAN CORPUSCULAR VOLUME 99.7 fl (80.0-96.0); MONO # 0.8 10^3/uL (0.0-0.8); NEUTROPHILS % 73.6 % (36.0-66.0); PLATELET COUNT, AUTOMATED 238 10^3/uL (150-450); RED BLOOD COUNT 3.59 10^6/uL (4.00-5.40); WHITE BLOOD COUNT 8.2 10^3/uL (4.0-10.0)
[2020-03-21] MEDS ORDERED: IPRATROPIUM 0.5MG/ALBUTEROL 2.5MG INH SOL UD 3ML (DUONEB) As Ordered ONE (14:27)
[2020-03-21] MEDS ORDERED: COMBIVENT RESPIMAT 100-20MCG INHALER 4GM INH STA (14:52)
[2020-03-21 15:04] LABS: ALT/SGPT 26 U/L (12-78); BILIRUBIN,DIRECT < 0.1 MG/DL (0.0-0.2); BILIRUBIN,TOTAL 0.6 MG/DL (0.2-1.0); BLOOD UREA NITROGEN 10 MG/DL (7-18); CALCIUM LEVEL 8.8 MG/DL (8.8-10.2); CARBON DIOXIDE LEVEL 28 MEQ/L (21-32); CHLORIDE LEVEL 98 MEQ/L (98-107); GLOMERULAR FILTRATION RATE > 60.0 (>45); GLUCOSE, FASTING 88 MG/DL (70-100); SODIUM LEVEL 133 MEQ/L (136-145); TOTAL PROTEIN 7.2 GM/DL (6.4-8.2)
--- NOTE | 2020-03-21 15:15 | REPVR ---
PROCEDURE INFORMATION: Exam: XR Chest, 2 Views Exam date and time: 03/21/2020 2:52 PM Age: 64 years old Clinical indication: Shortness of breath; Additional info: SOB; R/O pneumonia TECHNIQUE: Imaging protocol: XR of the chest Views: 2 views. COMPARISON: CT Chest with contrast 11/09/2019 3:07 PM FINDINGS: Tubes, catheters and devices: Termination med port catheter in the superior vena cava. Lungs: Emphysematous change and interstitial prominence. No acute infiltrate. Pleural space: No significant pleural effusion. Heart/Mediastinum: No cardiomegaly. Bones/joints: Osteopenia. Scoliosis and degenerative change. IMPRESSION: Emphysematous change and interstitial prominence. Electronically signed by: Mk Parrish On 03/21/2020 15:15:42 PM
[2020-03-21] MEDS ORDERED: methylPREDNISolone 125MG 2ML VIAL IV ONE (15:45)
[2020-03-21] MEDS ORDERED: COMBAER6 INH (16:05)
[2020-03-21] MEDS ORDERED: PRED10TA2 PO (16:05)
[2020-03-21] MEDS ORDERED: MUCI600T31 PO (16:05)
[2020-03-21 16:36] VITALS: BP 119/63
[2020-05-06] MEDS ORDERED: MOME0.1C3 TOP (15:27)
== END 2020-03-21 16:37 | disposition home or self-care (01) ==
LOC: M ED 13:46
DX: J44.1 Chronic obstructive pulmonary disease with (acute) exacerbation (principal); C34.90 Malignant neoplasm of unspecified part of unspecified bronchus or lung; E03.9 Hypothyroidism, unspecified; Z79.899 Other long term (current) drug therapy; Z79.4 Long term (current) use of insulin; Z79.01 Long term (current) use of anticoagulants; Z88.0 Allergy status to penicillin; Z88.1 Allergy status to other antibiotic agents; F17.210 Nicotine dependence, cigarettes, uncomplicated
CPT/HCPCS: 71046; 80048; 80076; 85025; 93041; 94760; 96374; 99285; J2930

== ENCOUNTER → 2020-04-18 | Outpatient (CLI) | payer MEDICARE, BC, OTHER ==
[~2020-04-18] MED LIST changes: +COMBAER6 INH; +MOME0.1C3 TOP; +MUCI600T31 PO; +OXYC10TA12; +OXYC60TA8; +PRED10TA2 PO; +PROAAER10
--- NOTE | 2020-04-18 11:23 | RADONC ---
Radiation Oncology Hx/FUP Radiation Oncology Hx/FUP Date of Service: Apr 18, 2020 Pt Identifier Amber Neville is a 65 year old female seen for a followup visit today at the department of radiation oncology for a history of stage IV NSCLC as well as co- morbid follicular lymphoma. She has received prior palliative radiation to her right hip and sacrum 30 Gy in 10 fractions to both sites completed 01/20/17. The right hip subsequently fractured and she underwent MARIAH. She has also received RT to her mediastinum 30 Gy in 10 fractions completed 05/25/18. She is seen today for palliative RT to T10-11 for pain control. Diagnosis/Treatment History Oncologic History Patient presented in July 2016 with right subcostal pain which was initially though to be gallbladder related. She underwent cholecystectomy. She then developed chest pain and SOB and underwent CT which showed LLL mass, multiple lung metastases with associated mediastinal adenopathy. Biopsy on 11/30/16 showed NSCLC with PD-L1 90%. She started on single agent Keytruda, had right hip pain and received palliative RT to the right hip and sacrum 30 Gy in 10 fractions completed 01/20/17. The right hip fractured and she underwent MARIAH. She had progression on PET-CT 04/25/18. She received RT tot he mediastinum 30 Gy in 10 fractions completed 05/25/18. She completed cycle 32 of keytruda on 01/17/19. She had a PET-CT on 03/14/19 which showed multiple new wilfredo areas of avidity. She had a biopsy of a right axillary node which showed both NSCLC and intermediate grade follicular lymphoma. She received carbo/alimta and completed 6 cycles on 08/22/19. She had a good response. She started on maintenance alimta on 09/15/19 and continues on this regimen now. Relevant Data: 03/20/20 MRI T spine FINDINGS: Vertebrae: There is accentuation of the thoracic kyphosis distally. There is focal central endplate depression at T8 with mild to moderate loss of height centrally. There is a severe T10 vertebral body fracture with a vertebra plana configuration and approximately 3 mm of retropulsion posterior margin into the canal. There is associated diffuse marrow infiltration with areas of patchy enhancement, compatible with pathologic fracture. There are osseous metastases at T11 mild superior endplate depression. Spinal cord: The thoracic cord is of normal contour and signal properties. Discs/Spinal canal/Neural foramina: At T10/11 level, retropulsion indents the thecal sac asymmetric to the right. There is moderate right lateral recess stenosis. There is mild facet hypertrophy. There is severe right neural foraminal narrowing. Soft tissues: Unremarkable. IMPRESSION: 1. Suspected severe T10 pathologic fracture with retropulsion. Changes contribute to severe right neural foraminal narrowing and moderate right lateral recess stenosis. Additional osseous metastases suspected at T11 with superior endplate depression. Interval History Reports pain in the mid-low back, 10/10 constant radiating anteriorly to the ribs on both sides. She takes oxycontin and oxycodone for breakthrough pain which helps. She has a palliative care provider in [place]. She reports she is tolerating chemotherapy well. She has no other foci of pain today besides the back. She has no LE weakness, no saddle anesthesia or bowel/bladder symptoms. She is functionally limited due to the back pain, can only ambulate or stand for a few minutes at a time before having to sit down again. She has not had an orthopedic evaluation and would not want to wear a back brace. Current Therapy Alimta, maintenance from 09/15/19- Stage Stage IV NSCLC, grade 2 follicular lymphoma Social History: Current 1 ppd smoker, 40+ pk years She drinks alcohol Allergies / Meds Allergies: Coded Allergies: Penicillins (Verified Allergy, Severe, Airway Closes, 03/21/20) levofloxacin (Verified Allergy, Severe, Airway Closes, 03/21/20) Home Meds Active Scripts Prednisone (Prednisone) 10 Mg Tablet, 10 MG PO ASDIRECTED, #24 TAB 4 po day 1-3; 3 po day 4-5; 2 po day 6-7; 1 po day 8-9 Prov:SABRA WHITAKER 03/21/20 Ipratropium/Albuterol Sulfate (Combivent Respimat 20-100 Mcg) 4 Gm Mist.inhal, 1 PUFF INH QID, #1 INHALER Prov:SABRA WHITAKER 03/21/20 Guaifenesin (Mucinex) 600 Mg Tab.er.12h, 1 TAB PO BID for cough for 10 Days, #20 TAB Prov:SABRA WHITAKER 03/21/20 Albuterol Sulf (Albuterol Sulfate) 2.5 Mg/3 Ml Vial.neb, 1 VIAL NEB Q4HP PRN for wheezing, #50 VIAL Prov:FIDELIA AU [employer]IM[employer] SPECIALIST 07/23/19 Ipratropium/Albuterol Sulfate (Iprat-Albut 0.5-3(2.5) mg/3 ml) 3 Ml Ampul.neb, 1 VIAL NEB QID for 30 Days, #60 VIAL Prov:FIDELIA AU [facility] 07/23/19 Reported Medications Albuterol Sulfate (Proair Hfa) 8.5 Gm Hfa.aer.ad 03/21/20 Oxycodone HCl (Oxycontin) 60 Mg Tab.er.12h 03/21/20 Oxycodone HCl (Oxycodone HCl) 10 Mg Tablet 03/21/20 Folic Acid (Folic Acid) 1 Mg Tablet 07/23/19 Ondansetron (Zofran Odt) 8 Mg Tab, 8 MG PO Q8H PRN for NAUSEA OR VOMITING, TAB 06/06/17 Escitalopram Oxalate (Escitalopram Oxalate) 20 Mg Tab, 20 MG PO DAILY, TAB 06/06/17 Apixaban (Eliquis) 5 Mg Tab, 5 MG PO BID, TAB 06/06/17 Levothyroxine Sodium (Levo-T) 25 Mcg Tab, 12.5 MCG PO DAILY, TAB 06/06/17 Omeprazole (Omeprazole) 40 Mg Cap, 40 MG PO DAILY, CAP 10/09/16 Review of Systems Review of Systems Constitutional: Reports: Fatigue; Denies: Chills, Fever, Night Sweats Eyes: Reports: Conjunctivae inflammation, Eyelid inflammation, Redness HEENT: Denies: Head Aches, Sinus Congestion Pulmonary: Reports: Dyspnea, Cough Cardiovascular: Denies: Chest Pain Gastrointestinal: Denies: Nausea, Vomiting Genitourinary: Denies: Dysuria, Frequency Hematologic: Denies: Bruising, Bleeding Excessively Endocrine: Denies: Polydipsia, Polyphagia Musculoskeletal: Reports: Back pain, Midthoracic pain; Denies: Neck pain, Leg pain, Joint pain Neurological: Denies: Weakness, Numbness, Incoordination Psych: Reports: Mood Normal Physical Examination Vital Signs Ht 66" Wt 141lb BMI 22 T 98 P 103 RR 18 BP 110/66 O2 95% Pain 4 Fatigue 2 General Exam: Positive: Alert, Cooperative; Negative: No Acute Distress Eye Exam: Positive: PERRLA, EOMI; Negative: Conjunctiva & lids normal, Ptosis ENT EXAM: Positive: Atraumatic, Pharynx Normal, Tongue Midline Neck Exam: Positive: Supple; Negative: Lymphadenopathy Chest Exam: Positive: Clear to auscultation, Normal air movement Heart Exam: Positive: Rate Normal, Regular Rhythm Abdomen Exam: Positive: Normal bowel sounds, Soft; Negative: Tenderness Extremity Exam: Positive: Normal pulses; Negative: Edema Skin Exam: Positive: Nl turgor and temperature Neuro Exam: Positive: Normal Gait, Cranial Nerves 3-12 NL Psych Exam: Positive: Mental status NL, Mood NL; Negative: Anxiety Other Physical Findings Tenderness over low thoracic spine and CVA BL Diagnostic and Laboratory Diagnostic Review Radiologic images, relevant labs and pathology reports were personally reviewed and discussed with Ms. Neville. Assessment and Plan Impression Assessment Ms. Neville is a 65 year old female with a history of stage IV NSCLC as well as co-morbid follicular lymphoma. She has received prior palliative radiation to her right hip and sacrum 30 Gy in 10 fractions to both sites completed 01/20/17. The right hip subsequently fractured and she underwent MARIAH. She has also received RT to her mediastinum 30 Gy in 10 fractions completed 05/25/18. She is seen today for palliative RT to T10-11 for pain control. I reviewed her MRI T spine which shows lesions at T10-T11 with associated compr ession fracture and retropulsed fragment. She has no symptoms of myelopathy at this time. She is not interested in surgical management (nor do I think she would be able to tolerate a major surgery at this time). I think she would benefit from 30 Gy in 10 fractions to these levels for pain control. I did discuss that ultimately she may benefit from kyphoplasty if the fracture remains stable after RT and her pain persists. This minimally invasive procedure could be done here at [facility] if her pain relief from RT is inadequate. I will treat her and follow up in 2-3 months to assess for pain response and refer to Dr. Han (IR) for consultation if needed. Simulation can proceed 04/19/20. Treatment should begin by 04/24/20 which will conveniently fit between chemotherapy cycles. She agreed and wishes to proceed. I anticipate minimal to no significant side effects from treatment except for fatigue, and mild GI upset. Performance Status ECOG 1 Plan 30 Gy in 10 fractions to T10-11 for pain relief Simulation tomorrow Upon completion will follow up in 2-3 months for pain assessment and refer for consideration of kyphoplasty if needed Ms. Neville was encouraged to call with questions or concerns in the interim caroline od. DAGOBERTO WAGONER MD Apr 18, 2020 11:23
== END ==
LOC: M ONCR 09:03
PROVIDERS: ATTEND General Practice
DX: C34.90 Malignant neoplasm of unspecified part of unspecified bronchus or lung (principal); C82.90 Follicular lymphoma, unspecified, unspecified site

== ENCOUNTER 2020-05-03 14:39 | Outpatient (RCR) | payer MEDICARE, BC, OTHER ==
[~2020-05-03 14:39] MED LIST changes: -MOME0.1C3 TOP
[2020-05-06] MEDS ORDERED: MOME0.1C3 TOP (15:27)
== END 2020-05-04 ==
LOC: M ONCR 14:39
PROVIDERS: ATTEND General Practice
DX: C79.51 Secondary malignant neoplasm of bone (principal)

== ENCOUNTER 2020-05-07 14:36 | Outpatient (RCR) | payer MEDICARE, BC, OTHER ==
[~2020-05-07 14:36] MED LIST changes: +MOME0.1C3 TOP
== END 2020-06-03 ==
LOC: M ONCR 14:36
PROVIDERS: ATTEND General Practice
DX: C79.51 Secondary malignant neoplasm of bone (principal)

== ENCOUNTER → 2020-08-20 | Outpatient (CLI) | payer MEDICARE, BC, OTHER ==
[~2020-08-20] MED LIST changes: +ESCI10TA16 PO; -ESCI10TA2 PO; -ESCI20TA PO; +ESCI20TA16 PO; +GASTROGRAFIN SOLUTION 30ML (Q9963) As Ordered ONE; +ISOVUE-370 76% 100ML VIAL As Ordered ONE
--- NOTE | 2020-08-20 15:17 | REPVR ---
PROCEDURE INFORMATION: Exam: CT Neck With Contrast Exam date and time: 08/20/2020 2:26 PM Age: 65 years old Clinical indication: Condition or disease; Cancer; Other: Lymphoma; Additional info: Adenocarcinoma, lymphoma of lymph nodes neck TECHNIQUE: Imaging protocol: Computed tomography images of the neck with intravenous contrast. Radiation optimization: All CT scans at this facility use at least one of these dose optimization techniques: automated exposure control; mA and/or kV adjustment per patient size (includes targeted exams where dose is matched to clinical indication); or iterative reconstruction. Contrast material: ISOVUE 370; Contrast volume: 100 ml; Contrast route: INTRAVENOUS (IV); COMPARISON: CT Neck with contrast 11/09/2019 3:07 PM FINDINGS: Nasopharynx: Unremarkable. Oropharynx: Unremarkable. No significant tonsillar enlargement. Hypopharynx: Unremarkable. Larynx: Unremarkable. Normal epiglottis. Retropharyngeal space: Unremarkable. Submandibular/Parotid glands: Normal. Glands are normal in size. Thyroid: Normal. No enlarged or calcified nodules. Lymph nodes: A central submandibular lymph node has increased from 10 x 15 x 10 mm on 11/09/2019 to 14 x 21 x 13 mm on today's examination. Trachea: Visualized trachea is unremarkable. Lungs: Tree in bud pattern is seen in the posterior right upper lobe on axial image 84 which may reflect aspiration. The apices are otherwise clear. Bones/joints: Unremarkable. No acute fracture. Vasculature: The vasculature demonstrates diffuse moderate atherosclerotic calcification. Soft tissues: Unremarkable. No significant soft tissue swelling. Other findings: A right infusion port is present. IMPRESSION: 1. A central submandibular lymph node has increased from 10 x 15 x 10 mm on 11/09/2019 to 14 x 21 x 13 mm on today's examination. 2. Tree in bud pattern is seen in the posterior right upper lobe on axial image 84 which may reflect aspiration. The apices are otherwise clear. Electronically signed by: Guillaume Covarrubias On 08/20/2020 15:17:36 PM
--- NOTE | 2020-08-20 17:46 | REP ---
INDICATION: ADENOCARCINOMA, LYMPHOMA OF LYMPH NODES NECK. 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 COMPARISON: Comparison chest CT study 09 Nov 2019.. TECHNIQUE: Helical scanning is acquired following the intravenous injection of 100 mL of Isovue 370. Coronal and sagittal MPR images are generated. FINDINGS: The uppermost cot in the field of view demonstrates submental enlarged lymph node measuring 2.4 cm in diameter. No supraclavicular adenopathy is seen. There is a mildly enlarged left axillary lymph node measuring 1.7 x 1.[address] study. This is a new finding. Right-sided internal jugular central venous line terminates in the superior vena cava. There are wilfredo calcifications in bilateral hilar and subcarinal and pretracheal lymph node chains in the mediastinum which are unchanged from the comparison study of November 09, 2019. No new mediastinal or hilar adenopathy is appreciated. There is a stable right lower lobe lung nodule containing stippled calcifications unchanged from the November 09, 2019 study.r this measures 1.4 cm in greatest diameter. There is a spiculated peribronchovascular 8 mm nodule in the left lower lobe on page 61 of 112 in series 304 today's study. This is unchanged from the November 09, 2019 study. Superior to this there is a small area of linear scarring in the superior segment of the left lower lobe. This is also unchanged. There is some pleuroparenchymal fibrosis anteriorly in the right upper lobe and there is some linear fibrosis in the right lower lobe unchanged. No new pulmonary nodule or mass lesion is observed. No new bony destructive lesion is seen. The previously noted sclerotic a changes and compression deformities in the T10 and T11 vertebral bodies are again noted. These changes appear stable since the prior study. IMPRESSION: Two new wilfredo foci are observed 1 in the submental region of the neck and the other in the left axilla. Otherwise stable chest CT findings. <Electronically signed by Janusz Shipley > 08/20/20 [id number]
--- NOTE | 2020-08-20 17:52 | REP ---
INDICATION: ADENOCARCINOMA, LYMPHOMA OF LYMPH NODES NECK. COMPARISON: Comparison CT study abdomen and pelvis November 09, 2019.. TECHNIQUE: Helical scanning is acquired and 3 mm axial images re-formatted. Coronal and sagittal MPR images are generated. The CT contrast enhancement dose is 100 mL of intravenous Isovue 370. FINDINGS: Digital preliminary office assistant receptionist radiograph demonstrates an unremarkable bowel gas pattern. Right femoral head replacement and surgical clips in the right upper quadrant are noted. The liver and the spleen are normal in size homogeneous in texture. The gallbladder surgically absent. The common bile duct and intrahepatic bile ducts are mildly dilated. Common bile duct measuresrrrrrrrrrrrrrr up to 1.4 cm in diameter. This appears to be unchanged. There is a descending duodenal diverticulum containing some air adjacent to the distal common bile duct. No pancreatic mass lesion is seen. The right adrenal gland is normal. There is a peripherally enhancing centrally low density mass lesion in the left adrenal gland consistent with a metastatic focus. This measures 3.8 x 3.7 by 4.2 cm. This mass is a new finding. There are left periaortic venous collaterals and the left renal vein and right renal vein are somewhat prominent unchanged. No other abdominal or retroperitoneal mass lesion is observed. A normal appearing appendix is seen. No renal mass lesion or hydronephrosis is noted. No pelvic mass or adenopathy is seen. There is left colonic diverticulosis mild in degree without CT evidence of diverticulitis. For no bony destructive lesion is appreciated. Sclerotic changes and partial wedging deformities are seen at the T10 and T11 vertebral bodies unchanged. IMPRESSION: There is a new centrally necrotic 4.2 cm left adrenal mass consistent with a metastatic focus. <Electronically signed by Janusz Shipley > 08/20/20 [id number]
== END ==
LOC: M RAD 12:02
PROVIDERS: ATTEND Internal Medicine Hematology & Oncology
DX: C34.90 Malignant neoplasm of unspecified part of unspecified bronchus or lung (principal); C83.31 Diffuse large B-cell lymphoma, lymph nodes of head, face, and neck
CPT/HCPCS: 70491; 71260; 74177; Q9963; Q9967

== ENCOUNTER → 2020-09-05 | Outpatient (CLI) | payer MEDICARE, BC, OTHER ==
[~2020-09-05] MED LIST changes: -GASTROGRAFIN SOLUTION 30ML (Q9963) As Ordered ONE; -ISOVUE-370 76% 100ML VIAL As Ordered ONE
--- NOTE | 2020-09-05 11:54 | RADONC ---
Radiation Oncology Hx/FUP Radiation Oncology Hx/FUP Date of Service: Sep 05, 2020 Pt Identifier Amber Neville is a 65 year old female seen for a followup visit today at the department of radiation oncology for a history of stage IV NSCLC as well as co- morbid follicular lymphoma. She has received prior palliative radiation to her right hip and sacrum 30 Gy in 10 fractions to both sites completed 01/20/17. The right hip subsequently fractured and she underwent MARIAH. She received RT to her mediastinum 30 Gy in 10 fractions completed 05/25/18. She also received palliative RT to T10-11 for pain control 30 Gy in 10 fractions completed 05/07/20. She is seen today for consideration of additional palliative RT for a growing submental lymph node which has been biopsied and returned FL, as well as a left adrenal metastasis from her NSCLC which is causing her pain. Diagnosis/Treatment History Oncologic History Patient presented in July 2016 with right subcostal pain which was initially though to be gallbladder related. She underwent cholecystectomy. She then developed chest pain and SOB and underwent CT which showed LLL mass, multiple lung metastases with associated mediastinal adenopathy. Biopsy on 11/30/16 showed NSCLC with PD-L1 90%. She started on single agent Keytruda, had right hip pain and received palliative RT to the right hip and sacrum 30 Gy in 10 fractions completed 01/20/17. The right hip fractured and she underwent MARIAH. She had progression on PET-CT 04/25/18. She received RT tot he mediastinum 30 Gy in 10 fractions completed 05/25/18. She completed cycle 32 of keytruda on 01/17/19. She had a PET-CT on 03/14/19 which showed multiple new wilfredo areas of avidity. She had a biopsy of a right axillary node which showed both NSCLC and intermediate grade follicular lymphoma. She received carbo/alimta and completed 6 cycles on 08/22/19. She had a good response. She started on maintenance alimta on 09/15/19 and this was held due to progression at the end of July 2020. In May 2021 she completed 30 Gy in 10 fractions to T10-11 for pain control. She is currently not on any systemic therapy. Recent imagin08/20/20 CT neck IMPRESSION: 1. A central submandibular lymph node has increased from 10 x 15 x 10 mm on 11/09/2019 to 14 x 21 x 13 mm on today's examination. 2. Tree in bud pattern is seen in the posterior right upper lobe on axial image 84 which may reflect aspiration. The apices are otherwise clear. 08/20/20 CT chest IMPRESSION: Two new wilfredo foci are observed 1 in the submental region of the neck and the other in the left axilla. Otherwise stable chest CT findings 08/20/20 CT abdomen pelvis IMPRESSION: There is a new centrally necrotic 4.2 cm left adrenal mass consistent with a metastatic focus Interval History Amber reports ongoing nausea, which has been chronic for her as well as pain, predominantly in the low back and left flank. Her mid back pain improved greatly after RT and this relief continues. The lymph node under her chin in uncomfortable when she swallows, but is not frankly painful. It grew over the course of few weeks to its present size. She has persistent fatigue as before. Her current pain regimen is effective, and makes her pain tolerable. She has a follow up with Dr. Jimenez at the end of September 2020. Unclear if additional systemic therapy will be recommended. Current Therapy Surveillance (Alimta has been d/c) Stage NSCLC stage IV FL grade 1-2 stage IV Social History: Current 1ppd smoker 40 + years Drinks alcohol Allergies / Meds Allergies: Coded Allergies: Penicillins (Verified Allergy, Severe, Airway Closes, 03/21/20) levofloxacin (Verified Allergy, Severe, Airway Closes, 03/21/20) Home Meds Active Scripts Mometasone Furoate (Mometasone Furoate) 15 Gm Cream..g., 1 APLCT TOP BID for 30 Days, #45 GRAM apply to affected area(s) Prov:DAGOBERTO WAGONER MD 05/06/20 Prednisone (Prednisone) 10 Mg Tablet, 10 MG PO ASDIRECTED, #24 TAB 4 po day 1-3; 3 po day 4-5; 2 po day 6-7; 1 po day 8-9 Prov:SABRA WHITAKER 03/21/20 Ipratropium/Albuterol Sulfate (Combivent Respimat 20-100 Mcg) 4 Gm Mist.inhal, 1 PUFF INH QID, #1 INHALER Prov:SABRA WHITAKER 03/21/20 Guaifenesin (Mucinex) 600 Mg Tab.er.12h, 1 TAB PO BID for cough for 10 Days, #20 TAB Prov:SABRA WHITAKER [employer] OPERATOR 03/21/20 Albuterol Sulf (Albuterol Sulfate) 2.5 Mg/3 Ml Vial.neb, 1 VIAL NEB Q4HP PRN for wheezing, #50 VIAL Prov:FIDELIA AUEdwina [employer] OPERATOR 07/23/19 Ipratropium/Albuterol Sulfate (Iprat-Albut 0.5-3(2.5) mg/3 ml) 3 Ml Ampul.neb, 1 VIAL NEB QID for 30 Days, #60 VIAL Prov:FIDELIA AUEdwina [employer] OPERATOR 07/23/19 Reported Medications Albuterol Sulfate (Proair Hfa) 8.5 Gm Hfa.aer.ad 03/21/20 Oxycodone HCl (Oxycontin) 60 Mg Tab.er.12h 03/21/20 Oxycodone HCl (Oxycodone HCl) 10 Mg Tablet 03/21/20 Folic Acid (Folic Acid) 1 Mg Tablet 07/23/19 Ondansetron (Zofran Odt) 8 Mg Tab, 8 MG PO Q8H PRN for NAUSEA OR VOMITING, TAB 06/06/17 Escitalopram Oxalate (Escitalopram Oxalate) 20 Mg Tab, 20 MG PO DAILY, TAB 06/06/17 Apixaban (Eliquis) 5 Mg Tab, 5 MG PO BID, TAB 06/06/17 Levothyroxine Sodium (Levo-T) 25 Mcg Tab, 12.5 MCG PO DAILY, TAB 06/06/17 Omeprazole (Omeprazole) 40 Mg Cap, 40 MG PO DAILY, CAP 10/09/16 Review of Systems Review of Systems Constitutional: Reports: Fatigue; Denies: Chills, Fever Eyes: Denies: Pain, Vision change HEENT: Denies: Head Aches Skin: Denies: Rash Pulmonary: Reports: Cough; Denies: Dyspnea Cardiovascular: Denies: Chest Pain, Palpitations Gastrointestinal: Reports: Nausea, Abdominal Pain Hematologic: Denies: Bruising Endocrine: Denies: Cold Intolerance Musculoskeletal: Reports: Back pain; Denies: Neck pain Neurological: Denies: Weakness, Numbness Psych: Reports: Mood Normal Physical Examination Vital Signs Ht 66" Wt 129 lbs BMI 20.7 T 97.7 P 120 RR 16 BP 114/74 O2 98% Pain 5 Fatigue 4 General Exam: Positive: Alert, Cooperative, No Acute Distress Eye Exam: Positive: PERRLA, EOMI ENT EXAM: Positive: Other ENT (There is a firm mobile nontender level 1A node present it is ~ 2.5 cm in greatest extent. No additional cervical or supraclavicular adenopathy appreciated. ) Neck Exam: Positive: Supple Chest Exam: Positive: Clear to auscultation, Normal air movement Heart Exam: Positive: Rate Normal, Regular Rhythm Abdomen Exam: Positive: Soft, Tenderness (Left flank/abdominal tenderness without palpable mass) Extremity Exam: Negative: Edema Skin Exam: Positive: Nl turgor and temperature Neuro Exam: Positive: Normal Gait, Normal Speech, Cranial Nerves 3-12 NL Psych Exam: Positive: Mental status NL Diagnostic and Laboratory Diagnostic Review Radiologic images, relevant labs and pathology reports were personally reviewed and discussed with Ms. Neville. Assessment and Plan Impression Assessment Ms. Neville is a 65 year old female with a history of stage IV NSCLC as well as co-morbid follicular lymphoma. She has received prior palliative radiation to her right hip and sacrum 30 Gy in 10 fractions to both sites completed 01/20/17. The right hip subsequently fractured and she underwent MARIAH. She received RT to her mediastinum 30 Gy in 10 fractions completed 05/25/18. She also received palliative RT to T10-11 for pain control 30 Gy in 10 fractions completed 05/07/20. She is seen today for consideration of additional palliative RT for a growing submental lymph node which has been biopsied and returned FL, as well as a left adrenal metastasis from her NSCLC which is causing her pain. I reviewed her recent imaging in detail, she has a biopsy proven recurrence of FL in the submental region which is uncomfortable for her. I recommend we treat this with palliative RT, per the recent FORT trial I recommend 24 Gy in 12 fractions which caries a >90% probability of durable local control. She also has a painful left adrenal lesion from NSCLC which is new. This is also amenable to palliative RT, and can be treated concurrently with the submental node, I will give her 33 Gy in 12 fractions for this (the alteration from the usual 30 Gy in 10 fractions is merely to harmonize with the 12 fraction course for the FL node). I will use DCA planning with a daily CBCT to treat the target, the head and neck site can be treated with 3D patel and kV/kV localization daily. The side effects of treatment would be expected to be mild and include the possibility of fatigue, skin reaction (head and neck), and nausea (adrenal). She agreed to proceed. We will simulate her in the coming days. Performance Status ECOG 1 Plan RT to the submental follicular lymphoma recurrence and left adrenal metastasis from NSCLC as described above. Simulation in the coming week Will decide on follow up paradigm pending her next medical oncology appointment with Dr. Jimenez Ms. Neville was encouraged to call with questions or concerns in the interim period. Billing Statement Total time of [26] minutes was spent preparing for the visit [2], obtaining HPI [4], examining the patient [3], reviewing diagnostic tests [4], discussing management options [5], coordinating care [1], and writing this note [7]. DAGOBERTO WAGONER MD Sep 05, 2020 11:54
== END ==
LOC: M ONCR 10:12
PROVIDERS: ATTEND General Practice
DX: C85.90 Non-Hodgkin lymphoma, unspecified, unspecified site (principal); Z92.3 Personal history of irradiation

== ENCOUNTER → 2020-10-02 | Outpatient (RCR) | payer MEDICARE, BC, OTHER | LOC: M ONCR 09-10 13:02 | PROVIDERS: ATTEND General Practice | DX: C82.81 Other types of follicular lymphoma, lymph nodes of head, face, and neck (principal) ==

== ENCOUNTER 2020-10-08 12:37 | Outpatient (RCR) | payer MEDICARE, BC, OTHER | END 2020-11-01 | LOC: M ONCR 12:37 | PROVIDERS: ATTEND General Practice | DX: C82.81 Other types of follicular lymphoma, lymph nodes of head, face, and neck (principal) ==

== ENCOUNTER → 2020-10-30 | Outpatient (REF) | payer MEDICARE, OTHER, BC ==
[~2020-10-30] MED LIST changes: +LIDO1CRE42; -LIDO2.5C15
[2020-10-30 17:30] LABS: ALBUMIN 3.3 GM/DL (3.2-5.2); ALT/SGPT 17 U/L (12-78); BILIRUBIN,TOTAL 0.3 MG/DL (0.2-1.0); BLOOD UREA NITROGEN 12 MG/DL (7-18); CALCIUM LEVEL 9.7 MG/DL (8.8-10.2); CARBON DIOXIDE LEVEL 31 MEQ/L (21-32); CHLORIDE LEVEL 102 MEQ/L (98-107); CHOLESTEROL LEVEL 237 MG/DL (<200); CHOLESTEROL RISK RATIO 4.937 (<5); CREATININE FOR GFR 0.68 MG/DL (0.55-1.30); GLOMERULAR FILTRATION RATE > 60.0 (>45); GLUCOSE, FASTING 92 MG/DL (70-100); HDL CHOLESTEROL 48 MG/DL (>40); LDL CHOLESTEROL 156 MG/DL (<100); NON-HDL-C 189 MG/DL; POTASSIUM SERUM 4.3 MEQ/L (3.5-5.1); SODIUM LEVEL 137 MEQ/L (136-145); TOTAL 25(OH) VITAMIN D 20.8 NG/ML (30.0-100.0); TOTAL PROTEIN 7.2 GM/DL (6.4-8.2); TRIGLYCERIDES LEVEL 167 MG/DL (<150)
[2020-11-01 04:11] LABS: LDL DIRECT 143 mg/dL (0-99)
== END ==
LOC: M LAB REF 15:58
PROVIDERS: ATTEND Pediatrics
DX: E03.9 Hypothyroidism, unspecified (principal); F34.1 Dysthymic disorder; E55.9 Vitamin D deficiency, unspecified

== ENCOUNTER → 2020-11-13 | Outpatient (CLI) | payer MEDICARE, BC, OTHER ==
[~2020-11-13] MED LIST changes: +ISOVUE-370 76% 100ML VIAL As Ordered ONE
--- NOTE | 2020-11-13 17:21 | REPVR ---
PROCEDURE INFORMATION: Exam: CT Neck With Contrast Exam date and time: 11/13/2020 4:48 PM Age: 65 years old Clinical indication: Condition or disease; Cancer; Other: Lung; Additional info: Adenocarcinoma of RT lung TECHNIQUE: Imaging protocol: Computed tomography images of the neck with contrast. Radiation optimization: All CT scans at this facility use at least one of these dose optimization techniques: automated exposure control; mA and/or kV adjustment per patient size (includes targeted exams where dose is matched to clinical indication); or iterative reconstruction. Contrast material: ISOVUE 370; Contrast volume: 100 ml; Contrast route: INTRAVENOUS (IV); COMPARISON: CT Neck with contrast 08/20/2020 2:27 PM FINDINGS: Pharynx: Unremarkable. Larynx: Unremarkable. Normal epiglottis. Retropharyngeal space: Unremarkable. Submandibular/Parotid glands: Unremarkable. Thyroid: Unremarkable. No enlarged or calcified nodules. Lymph nodes: Resolution of previously seen enlarged submandibular lymph node. No new enlarged lymph nodes. Trachea: Unremarkable. Lungs: Scattered solid nodular opacities throughout the partially visualized lungs, largest in the left lung measuring 1.1 cm. Bones/joints: Mild degenerative changes of the visualized spine. No acute fracture. Soft tissues: Partially visualized right chest wall medication port. IMPRESSION: 1. Resolution of previously seen enlarged submandibular lymph node. No acute findings in the soft tissues of the neck. 2. Scattered solid nodular opacities throughout the partially visualized lungs, largest in the left lung measuring 1.1 cm, new since prior CT performed on 08/20/2020. Please refer to dedicated CT chest for further details. Electronically signed by: Luis Banegas On 11/13/2020 17:21:39 PM
--- NOTE | 2020-11-13 17:55 | REP ---
INDICATION: ADENOCARCINOMA OF RT LUNG. COMPARISON: 08/20/2020. TECHNIQUE: CT chest performed following the intravenous administration of 100 cc of Isovue 370. Sagittal and coronal reconstruction images are performed. FINDINGS: Lungs: There is a new mildly irregular pleural-based nodule in the right upper lobe anteriorly on image 27, measuring 1.3 cm in diameter. There is a new subpleural nodular density 5 mm in diameter on image 36. A new posterior nodule at that level measures 9 mm in diameter. There is a new ill-defined subpleural nodular density 6 mm in diameter laterally on the right on image 50. There is a stable 1.5 cm nodule posterolaterally in the right lower lobe on image 69, containing a couple of tiny calcifications. On image 68 there is a new subpleural nodule measuring 9 mm in diameter and an adjacent parenchymal nodule 6 mm in diameter. In the inferolateral right costophrenic angle there is a new nodule measuring 1 cm in diameter. More anteriorly on image 82 there is a new oval nodule with a maximum diameter of 1.7 cm. On the left there is new 9 mm subpleural nodule superiorly and posteriorly on image 13. A new tiny 3 mm subpleural nodule is seen laterally on image 28, a 7 mm nodule anteromedially on image 30, and a 1 cm nodule posterolaterally on image 34. A spiculated nodule is stable on image 57. There is a new 7 mm nodule posteriorly on image 62. There is a new peripherally enhancing nodular density medially abutting the mediastinum and pericardium on image 73 measuring approximately 3 cm in diameter. There is central fluid density. There are stable scattered interstitial opacities in each lung. Mediastinum: There are multiple stable calcified mediastinal lymph nodes again seen. Mayi: There are stable calcified hilar lymph nodes present. Axilla: No adenopathy. Pleura: There are new small bilateral pleural effusions. There is an area anteriorly on both the right and left of mild irregular pleural thickening at the level of the pulmonary trunk which is stable. There is new nodular thickening at the inferior right major fissure medially. At that level there is also new mild irregular pleural thickening laterally. Heart: Not enlarged. Thoracic aorta: No aneurysm or dissection. Visualized osseous structures: There are diffuse degenerative changes. There is stable sclerotic density in the T10 and T11 vertebral bodies with stable chronic collapse T10. IMPRESSION: Both lungs demonstrate multiple new nodular densities as discussed in detail above. There is a nodular density in the left lower lobe medially approximately 3 cm in diameter, with central fluid density, suggesting an necrotic nodule. New small bilateral pleural effusions. There is new area of nodular pleural thickening at the inferior aspect of the right major fissure and also of the right lateral pleural surface at that level. <Electronically signed by oMy Bennett > 11/13/20 [id number]
--- NOTE | 2020-11-13 18:13 | REP ---
INDICATION: ADENOCARCINOMA OF RT LUNG. COMPARISON: 08/20/2020. TECHNIQUE: Oral contrast was administered. CT abdomen performed without IV contrast. CT abdomen and pelvis performed with the intravenous administration of 100 cc of Isovue 370. Sagittal and coronal reconstruction images are performed. FINDINGS: Liver: There is a new 9 mm nodule in the lateral segment of the left lobe of the liver on image 18, suspicious. Gallbladder: Prior cholecystectomy. Mildly dilated bile ducts are stable. Spleen: There is a small partially calcified nodule in the spleen which is stable.. Adrenals: The necrotic mass of the left adrenal gland has mildly increased in size, currently maximum diameter is 4.9 cm. There is no right adrenal nodule. Pancreas: Normal. Kidneys: There is a new mass in the lower pole the right kidney which is suspicious, measuring approximately 1.8 cm in diameter. Small and large bowel: Unremarkable. Free fluid: None. Abdominal aorta: No aneurysm or dissection. Adenopathy: There is a stable 11 mm left para-aortic lymph node. There are few subcentimeter bilateral inguinal lymph nodes which have mildly increased in size. Appendix: Not inflamed. Osseous structures: Metallic right hip prosthesis causes streak artifact and limits evaluation of pelvic structures. Pelvis: No gross mass. IMPRESSION: New 9 mm liver nodule in the left lobe is suspicious. Mild increase in size of necrotic left adrenal gland mass now measuring 4.9 cm. There is a new mass in the lower pole the right kidney measuring 1.8 cm in diameter. <Electronically signed by Moy Bennett > 11/13/20 [id number]
== END ==
LOC: M RAD 15:39
PROVIDERS: ATTEND Internal Medicine Hematology & Oncology
DX: C34.91 Malignant neoplasm of unspecified part of right bronchus or lung (principal); R91.8 Other nonspecific abnormal finding of lung field; J90 Pleural effusion, not elsewhere classified; N28.89 Other specified disorders of kidney and ureter
CPT/HCPCS: 70491; 71260; 74177; Q9967

== ENCOUNTER → 2020-12-23 | Outpatient (CLI) | payer MEDICARE, BC, OTHER ==
[~2020-12-23] MED LIST changes: +OMEP40CA4 PO; -OMEP40CA97 PO
--- NOTE | 2020-12-23 18:30 | REP ---
INDICATION: F/U ADENOMA CARCINOMA OF LUNG, WORSENING SOB. Status post radiation therapy and chemotherapy. COMPARISON: Comparison chest CT study November 13, 2020 and August 20, 2020.. TECHNIQUE: Helical scanning is acquired following the intravenous injection of 75 mL of Isovue 370. 3 mm axial images re-formatted. Coronal and sagittal MPR and coronal MIP images are provided. FINDINGS: There is an Xfcrrd-O-Pxzl catheter noted in place. Multiple metastatic pulmonary nodules are visible, increased in size and number. Small bilateral pleural effusions are seen right greater than left. The right pleural effusion is little larger than on the November 13, 2020 study. No new parenchymal infiltrate is seen. There is some visceral and parietal pleural thickening and enhancement. There is a 1.9 cm necrotic pulmonary nodule in the right middle lobe at the diaphragmatic surface anterolaterally. The previously noted left lower lobe pleural based medial pulmonary nodule is again seen measuring 2.7 cm today. The previously noted left axillary node is seen measuring 2.1 cm in diameter. No new extra thoracic adenopathy is seen. However, there is a left lobe hepatic mass consistent with a metastasis measuring 3.0 cm in greatest diameter. There is a tiny 5 mm low-density lesion in the right lobe of the liver. There is right retrocrural and left celiac axis adenopathy. A left adrenal mass is seen measuring 4.1 cm in diameter centrally necrotic in appearance. There is a necrotic appearing 2.8 cm wilfredo focus is adjacent to the gastroesophageal junction. Lower thoracic spine skeletal changes are stable. No new skeletal metastatic lesion is seen. IMPRESSION: Evidence of progression as above increased right pleural effusion. Pulmonary nodules and new left lobe liver metastasis. <Electronically signed by Janusz Shipley > 12/23/20 [id number]
== END ==
LOC: M RAD 16:28
PROVIDERS: ATTEND Internal Medicine Hematology & Oncology
DX: C82.08 Follicular lymphoma grade I, lymph nodes of multiple sites (principal); C34.90 Malignant neoplasm of unspecified part of unspecified bronchus or lung
CPT/HCPCS: 71260; Q9967

== ENCOUNTER → 2021-02-03 | Outpatient (CLI) | payer MEDICARE, BC, OTHER ==
[~2021-02-03] MED LIST changes: +DOXY-350 PO; +GASTROGRAFIN SOLUTION 30ML (Q9963) ONE; -ISOVUE-370 76% 100ML VIAL As Ordered ONE; +ISOVUE-370 76% 100ML VIAL ONE; +LEXA1TAB PO; +PROC5TAB57 PO; +ZOFR4TAB16 PO
== END ==
LOC: M PLAIMG 11:12
PROVIDERS: ATTEND Internal Medicine Hematology & Oncology
DX: R93.5 Abnormal findings on diagnostic imaging of other abdominal regions, including retroperitoneum (principal); R91.8 Other nonspecific abnormal finding of lung field; C34.90 Malignant neoplasm of unspecified part of unspecified bronchus or lung; C82.08 Follicular lymphoma grade I, lymph nodes of multiple sites
CPT/HCPCS: 71260; 74177; Q9963; Q9967

== ENCOUNTER 2021-03-14 18:46 | Emergency (ER) | payer MEDICARE, BC, OTHER ==
[~2021-03-14] VITALS: Ht 167.6 cm; Wt 47.7 kg
[~2021-03-14 18:46] MED LIST changes: -DOXY-350 PO; -GASTROGRAFIN SOLUTION 30ML (Q9963) ONE; -ISOVUE-370 76% 100ML VIAL ONE
--- NOTE | 2021-03-14 19:34 | REP ---
INDICATION: CHEST PAIN. COMPARISON: 03/21/2020. TECHNIQUE: Single portable AP view of the chest was performed. FINDINGS: There is infiltrate in the right lower lung zone. The left lung is clear. The heart is normal in size. The mediastinal silhouette appears unchanged. There is mild elevation of the left hemidiaphragm. There is a right central venous catheter with tip in the superior vena cava. IMPRESSION: Infiltrate right lower lung zone. <Electronically signed by Moy Bennett > 03/14/211929
[2021-03-14 20:09] LABS: BASO % 0.2 % (0.0-1.0); EOS # 0.1 10^3/uL (0.0-0.5); EOS % 0.9 % (0.0-3.0); HEMATOCRIT 42.1 % (36.0-47.0); HEMOGLOBIN 13.6 g/dl (12.0-15.5); LYMPH # 0.8 10^3/uL (1.5-5.0); LYMPH % 6.4 % (24.0-44.0); MEAN CORPUSCULAR HEMOGLOBIN 27.3 pg (27.0-33.0); MEAN CORPUSCULAR HGB CONC 32.3 g/dl (32.0-36.5); MEAN CORPUSCULAR VOLUME 84.5 fl (80.0-96.0); MONO # 1.2 10^3/uL (0.0-0.8); MONO % 10.3 % (2.0-8.0); NEUTROPHILS # 9.8 10^3/uL (1.5-8.5); NEUTROPHILS % 81.5 % (36.0-66.0); PLATELET COUNT, AUTOMATED 477 10^3/uL (150-450); RED BLOOD COUNT 4.98 10^6/uL (4.00-5.40)
[2021-03-14 20:26] LABS: ALBUMIN 2.4 GM/DL (3.2-5.2); ALT/SGPT 12 U/L (12-78); BILIRUBIN,DIRECT 0.2 MG/DL (0.0-0.2); BILIRUBIN,TOTAL 0.5 MG/DL (0.2-1.0); BLOOD UREA NITROGEN 13 MG/DL (7-18); C REACTIVE PROTEIN QUANTITATIV 9.84 MG/DL (0.00-0.30); CALCIUM LEVEL 9.2 MG/DL (8.8-10.2); CARBON DIOXIDE LEVEL 28 MEQ/L (21-32); CHLORIDE LEVEL 98 MEQ/L (98-107); GLOMERULAR FILTRATION RATE > 60.0 (>45); GLUCOSE, FASTING 85 MG/DL (70-100); POTASSIUM SERUM 3.7 MEQ/L (3.5-5.1); SODIUM LEVEL 133 MEQ/L (136-145); TOTAL PROTEIN 6.4 GM/DL (6.4-8.2)
[2021-03-14] MEDS ORDERED: ISOVUE-370 76% 100ML VIAL As Ordered ONE (20:30)
[2021-03-14 20:48] LABS: ERYTHROCYTE SEDIMENTATION RATE 47 mm/hr (0-30)
[2021-03-14] MEDS ORDERED: HYDROMORPHONE HCL 0.5 MG/ 0.5 ML SYRINGE (J1170 PER 1) IV PRN (21:10)
--- NOTE | 2021-03-14 22:12 | REPVR ---
PROCEDURE INFORMATION: Exam: CTA Chest With Contrast Exam date and time: 03/14/2021 8:52 PM Age: 65 years old Clinical indication: Pain; Left-sided; Additional info: Left sided chest pain TECHNIQUE: Imaging protocol: Computed tomographic angiography of the chest with contrast. 3D rendering (Not supervised by radiologist): MIP and/or 3D reconstructed images were created by the technologist. Radiation optimization: All CT scans at this facility use at least one of these dose optimization techniques: automated exposure control; mA and/or kV adjustment per patient size (includes targeted exams where dose is matched to clinical indication); or iterative reconstruction. Contrast material: ISOVUE 370; Contrast volume: 75 ml; Contrast route: INTRAVENOUS (IV); COMPARISON: CT ANGIO CHEST 07/23/2019 5:35 PM FINDINGS: Tubes, catheters and devices: Right Port-A-Cath through the internal jugular extending to the superior vena cava. Pulmonary arteries: The main pulmonary artery measures 31 mm. No pulmonary embolism is identified. Aorta: The ascending thoracic aorta measures 30 mm. No gross or obvious aortic dissection is noted. Lungs: Coarse pulmonary interstitium with mild bibasilar fibro-atelectatic change, right greater than left. Subpleural irregular nodule in the superior segment of the left lower lobe measuring 6 mm which is new since the prior study. Focal consolidation or partially calcified nodule in the posterior right lower lobe which is slightly increased since the prior study. Pleural spaces: Minimal bilateral pleural effusions with loculation on the right with moderately thick pleural rind. Heart: Unremarkable. No cardiomegaly. No pericardial effusion. Mediastinal space: Loculated left infrahilar fluid collection measuring 2.1 x 2.7 x 3.5 cm which may be within lung. Lymph nodes: Scattered calcified mediastinal nodes. Adrenal glands: Lobular left adrenal mass measuring 6.1 x 2.9 x 5.2 cm with a Hounsfield measurement of 25. Bones/joints: Prominent compression of T10 and mild wedge configuration of T11 with sclerosis toward the right aspect. There is slight superior endplate depression of T8 which appears to be chronic. Sclerosis of the right 7th rib posteriorly which is similar to the prior study. Soft tissues: Unremarkable. IMPRESSION: 1. Right Port-A-Cath to the superior vena cava which is similar. 2. Multiple calcified mediastinal nodes which are increased since the prior study. 3. Minimal bilateral pleural effusions with pleural rind loculation on the right which is new since the prior study. 4. Partially calcified posterior right lower lobe nodule which is slightly increased since the prior study. 5. Mild bibasilar fibro-atelectatic change, increased since the prior study. 6. Fluid collection caudal to the left hilum which may reflect loculated pleural fluid or possibly fluid within the lung such as lung abscess. 7. Lobular left adrenal mass which is increased since the prior study and may reflect metastatic disease. 8. Sclerotic compression of T10 and to a lesser degree T11 on the right and sclerotic right 7th rib which are similar to the prior study. 9. Irregular subpleural nodule in the superior segment left lower lobe measuring 6 mm which is new since the prior study and may reflect metastatic disease. 10. Otherwise negative CTA chest. No pulmonary embolism is identified. Electronically signed by: Ramon Lawrence On 03/14/2021 22:12:02 PM
[2021-03-14] MEDS ORDERED: DOXYCYCLINE HYCLATE 100MG TABLET PO ONE (23:45)
[2021-03-15] MEDS ORDERED: DOXY-350 PO (01:04)
[2021-03-15 01:12] VITALS: BP 99/55
--- NOTE | 2021-03-16 19:50 | ECGEPIP ---
[facility] - ED Test Date: 2021-03-14 Pat Name: CHINTAN DYE Department: Room: - Gender: Female [employer]: KRYSTAL : 1955 Requested By: SABRA Beasley Order Number: [id number] Reading MD: Saranya White Measurements Intervals [place] Rate: 118 P: 71 UT: 138 QRS: -42 QRSD: 86 T: 71 QT: 342 QTc: 479 Interpretive Statements Sinus tachycardia Left atrial enlargement Left axis deviation increased rate 07/23/19 Electronically Signed on 03-16-2021 19:49:58 EDT by Saranya Whtie
--- NOTE | 2021-03-17 13:38 | ED PDOC ---
Post-Departure Follow-Up radiology report faxed to berenice Sanchez MD Delaney-Rowland, Sarah MD Mar 17, 2021 13:38
== END 2021-03-15 01:22 | disposition home or self-care (01) ==
LOC: M ED 18:46
DX: R07.89 Other chest pain (principal); C34.90 Malignant neoplasm of unspecified part of unspecified bronchus or lung; C85.90 Non-Hodgkin lymphoma, unspecified, unspecified site; J94.8 Other specified pleural conditions; E03.9 Hypothyroidism, unspecified; Z79.899 Other long term (current) drug therapy; Z79.890 Hormone replacement therapy; Z88.0 Allergy status to penicillin; Z88.1 Allergy status to other antibiotic agents; F17.210 Nicotine dependence, cigarettes, uncomplicated
CPT/HCPCS: 71045; 71275; 80048; 80076; 84484; 85025; 85652; 86140; 93005; 93041; 94760; 96374; 99285; J1170; Q9967